=== PATIENT | male | born 1985 | race African-American/Black ===

== ENCOUNTER 2022-12-07 10:32 | Inpatient (IN) | payer OTHER ==
[~2022-12-07] VITALS: Ht 172.7 cm; Wt 67.3 kg
[2022-12-07] MEDS ORDERED: CLOP75TA28 PO (12:07)
[2022-12-07] MEDS ORDERED: FLUO20CA48 PO (12:07)
[2022-12-07] MEDS ORDERED: CARV6.252 PO (12:07)
[2022-12-07] MEDS ORDERED: ACET325T38 PO (12:07)
[2022-12-07] MEDS ORDERED: ATOR40TA70 PO (12:07)
[2022-12-07] MEDS ORDERED: LISI2.5T13 PO (12:07)
[2022-12-07] MEDS ORDERED: ASPI-1238 PO (12:07)
[2022-12-07] MEDS ORDERED: SPIR50TA4 PO (12:07)
[2022-12-07 13:05] VITALS: BP 101/69
--- NOTE | 2022-12-07 13:08 | PM&R Post Admission Assessment ---
PM&R HP Date of Visit: Dec 07, 2022 Time of Visit: 13:00 History of Present Illness CC: Acute Heart Failure and Stroke HPI: Pt is a 37-year-old Male who presents for rehab after hospitalization for acute heart failure exacerbation. During that hospital stay he experienced what was later identified as a right thalamic stroke. Pt was admitted to [facility] through the ED on 11/28 with lower extremity swelling, increasing PATEL and SOB at rest. Pt was also found to have elevated BNP in ED leading to admission for acute HF exacerbation and treatment with diuresis. Pt responded well but on 11/30 a rapid response was called after patient was found with new left eye inversion, and new paralysis of left face, arm, and leg. Stroke team was consulted and found new deficits including: right eye unable to abduct, left eye abducted, Left lower motor neuron facial palsy, some dysarthria, left upper and lower extremity drift and decreased sensation in left upper extremity, Pt was evaluated for, approved for, and given TNK. Pt presents today recovering from both AHF and stroke. He denies SOB though does feel his conditioning has been affected by hospital stay; still has PATEL. He denies deficits with left arm, but feels his left leg is still somewhat weaker than his right. His left eye is pointed down and out at rest. He is currently wearing an eyepatch and alternating when one becomes uncomfortable. With one eye covered he is able to visualize and track examiners finger. However, with both eyes uncovered pt experiences double vision and is in too much discomfort to continue. He reports regular bowel movements and having one last night. He does endorse abnormal urination (over the last 1-2 years notes he is taking longer to pee and that his stream will occasionally start and stop involuntarily) but notes this is not new with recent hospitalization. Denies n/v/f/c. PMH: Sickle Cell trait; otherwise none prior to recent hospital admission PSH: Splenectomy 2005 Allergies: Morphine Home Meds: Occasional OTC allergy pills Medications: Continuing from [facility]: Coreg 6.25 mg PO BID Lipitor 40 mg PO daily Prozac 20 mg PO daily ASA 81 mg PO daily Plavix 75 mg PO daily Lovenox 40 mg SQ daily Lisinopril 2.5 mg PO daily Spironolactone 50 mg PO daily Social Hx: Lives at home with family, employed as cook. Denies tobacco or alcohol use; does endorse smoking marijuana and methamphetamine use, frequency and route unclear (conversation differed with son in room) FMHx: Grandmother passed from stroke; hx of CVD on fathers side ROS: Constitutional: Endorses ~30-40 pound weight loss last few months, denies fever, chills HEENT: endorses visual changes after stroke, some dizziness, no changes in smell or problems swallowing Pulm: denies problems breathing and cough CV: endorses increased PATEL leading up to hospitalization, some present now, no SOB at rest. GI: no problems or changes in bowel habits : denies recent changes, endorses urinating for longer/involuntary starting and stopping developing over last 1-2 years MSK: denies joint and muscle problems. Exam: Gen: thin appearing, NAD HEENT: Head normocephalic and atraumatic, eye patch in place over left eye (alternates); left eye down and out at rest; Pupils equal and equally reactive to light. Pt able to track finger with both eyes independently as noted in HPI, visual field testing deferred. CV: Regular rate and rhythm, no murmurs rubs or gallops appreciated, normal S1 and S2. Pulm: No accessory muscle use, equal work of breathing BL, no wheezes, rales, or ronchi appreciated. Abd: flat, no distension, no TTP Neuro: Pt alert and oriented to person, place, and time. Cranial Nerve 2 pupils equal and equally reactive to light 3,4,6 left eye displaced down and out at rest, otherwise able to track through full H test when eyes examined independently, double vision and discomfort without one eye covered 5 normal facial sensation, equal BL 7 full ROM BL 8 no changes in hearing 9,10 normal elevation of palate and no uvula deviation 11 normal SCM contraction 12 full tongue movement RUE strength 5/5; LUE 4/5; LLE 4/5; RLE: 5/5 Sensation intact and equal BL in each extremity. Labs/vitals/imaging: Unable to view with no login, paper labs outdated Assessment: Primary Problem: Acute Heart Failure and right thalamic stroke Acute ischemic stroke, Congestive Heart Failure w/ reduced ejection fraction; polysubstance use disorder, sickle cell trait, anxiety Plan: Acute thalamic stroke: - s/p TNK - MRI Brain at [facility]: acute right thalamic stroke - CTA H/Neck: no aneurysm, vascular malformations nor large vessel occlusion Plan: - Will need o/p ophthalmology and neurology evaluation. 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 - Not currently candidate for transplant evaluation Sickle Cell Trait - Will need o/p hematology referral Polysubstance Abuse - Open to seeing counselor, continue to explore JOELLEN Covarrubias Past Qpcxloh-Ygwljb-Fipqvm Hx Past Med/Social Hx: Reviewed Nursing Past Med/Soc Hx, Reviewed and Corrections made Patient Social History Marrital Status: single Employed/Student: employed Alcohol Use: Occasionally Uses Smoking Status: Former Smoker Past Medical History chf ef 10% Neurological: Stroke PM&R Allergy/Meds/Data Review Allergies Coded Allergies: morphine (Verified Adverse Reaction, Unknown, 12/07/22) "I get real loopy" Home Medications Scheduled Aspirin (Aspirin EC), 81 MG PO DAILY, (Reported) Atorvastatin Calcium (Atorvastatin Calcium), 40 MG PO HS, (Reported) Carvedilol (Carvedilol), 6.25 MG PO BID WITH MEALS, (Reported) Clopidogrel Bisulfate (Clopidogrel), 75 MG PO DAILY, (Reported) Fluoxetine HCl (Fluoxetine HCl), 20 MG PO HS, (Reported) Lisinopril (Lisinopril), 2.5 MG PO DAILY, (Reported) Spironolactone (Spironolactone), 50 MG PO DAILY, (Reported) Scheduled PRN Acetaminophen (Tylenol), 650 MG PO Q6H PRN for PAIN-MILD (1-4), (Reported) Current Medications Current Medications Reviewed Review of Systems Constitutional: see HPI, dizziness, weight loss EENTM: vision loss Respiratory: no symptoms reported Cardiovascular: no symptoms reported Gastrointestinal: no symptoms reported Genitourinary: no symptoms reported Musculoskeletal: back pain, joint pain Skin: no symptoms reported Psychiatric/Neurological: Depressed, Weakness All Other Systems Reviewed Negative Unless Noted: Yes Physical Exam Physical Exam Vital Signs Capillary Refill : Height, Weight, BMI Height: '" Weight: lbs. oz. kg; BMI Method: General Appearance: WD/WN, Anxious, Chronically ill, Mild Distress, Thin Eyes: Bilateral Eye Normal Inspection, Bilateral Eye PERRL HEENT: PERRL/EOMI, Pharynx Normal, Other (left eye directed down and to left during right eye covered) Neck: Full Range of Motion, Normal Inspection, Non Tender, Supple, Carotid Bruit Respiratory: Chest Non Tender, Lungs Clear, Normal Breath Sounds, No Accessory Muscle Use, No Respiratory Distress Cardiovascular: Regular Rate, Rhythm, No Edema, No Gallop, No JVD, No Murmur, Normal Peripheral Pulses Gastrointestinal: Normal Bowel Sounds, No Organomegaly, No Pulsatile Mass, Non Tender, Soft Back: Normal Inspection, No CVA Tenderness, No Vertebral Tenderness Extremity: Normal Capillary Refill, Normal Inspection, Normal Range of Motion, Non Tender, No Calf Tenderness, No Pedal Edema Neurologic/Psychiatric: Alert, Oriented x3, Abnormal tanbark peeler II-XII, Abnormal Gait, Depressed Affect, Motor Weakness (left sided 4/5) Skin: Normal Color, Warm/Dry Lymphatic: No Adenopathy PM&R Medical Assessment & Plan REHAB/MEDICAL ASSESSMENT AND PLAN: REHAB IMPAIRMENT GROUP: Acute right thalamic infarct ETIOLOGIC DIAGNOSIS: Acute right thalamic infarct The comorbidities that impact the patients function and/or functional outcome by: vision loss, profound weight loss, left sided weakness, h/o meth use, CHF EF 10% REHAB PLAN: The patient is being admitted to our comprehensive inpatient rehabilitation facility and can tolerate the intensity of service consisting of at least: 180 minutes of therapy a day, 5 out of 7 days a week Rehab treatment will consist of: PT OT will focus on regaining strength with use of AD in order to regain function of ADL's in order to DC home to live independently The patient/family has a good understanding of our discharge process and will benefit from an interdisciplinary inpatient rehabilitation program. The patient has potential to make improvement and is in need of at least two of the following multidisciplinary therapies including but not limited to physical, occupational, speech, and prosthetics and orthotics. Additionally the patient will need services from respiratory, nutritional services, wound care, psycholo gy, etc. (Customize this to each patient). Given the patients complex condition and risk of further medical complications, rehabilitation services cannot be safely or effectively provided at a lower level of care such as a intermediate facility. BARRIERS TO DISCHARGE: Severe CHF EF 10% life vest intact ESTIMATED LOS: 10 days DISPOSITION: Home RELEVANT CHANGES SINCE PREADMISSION SCREENING: I have compared the patients medical and functional status at the time of the preadmission screening and there are: no changes PROGNOSIS: Fair REHABILITATION GOALS: 1.PT OT will focus on regaining strength with use of AD in order to regain function of ADL's in order to DC home to live independently All the above goals were reviewed with the patient and he/she is in agreement. By signing this document, I acknowledge that I have personally performed a full physical examination on this patient within 24 hours of admission to this inpatient rehabilitation facility and have determined the patient to be able to tolerate the above course of treatment at an intensive level for a reasonable period of time. I will be completing a detailed individualized Plan of Care for this patient by day #4 of the patients stay based upon the Preadmission Screen, the Post-Admission Evaluation, and the therapy evaluations. Admission Dx/Comorbidities: (1) CVA (cerebral vascular accident) ICD Codes: I63.9 - Cerebral infarction, unspecified Assessment/Plan Assessment and Plan Assess & Plan/Chief Complaint Assessment: Right thalamic stroke with left sided weakness and vision impairment CHF EF 10% h/o Meth use Weight loss Plan: Cardiology consult CHF protocol meds Monitor closely CASSANDRA RIOS DO Dec 07, 2022 13:08
[2022-12-07] MEDS ORDERED: FLEET ENEMA ADULT 1 EA BTL PR PRN (13:15)
[2022-12-07] MEDS ORDERED: MELATONIN 3 MG TABLET PO PRN (13:15)
[2022-12-07] MEDS ORDERED: CALCIUM CARBONATE 500 MG (TUMS) TAB.CHEW PO PRN (13:15)
[2022-12-07] MEDS ORDERED: LOPERAMIDE 2 MG (IMODIUM) TABLET PO PRN (13:15)
[2022-12-07] MEDS ORDERED: diphenhydrAMINE 25 MG TAB (BENADRYL) PO PRN (13:15)
[2022-12-07] MEDS ORDERED: ALPRAZolam 0.25 MG (XANAX) TAB PO PRN (13:15)
[2022-12-07] MEDS ORDERED: guaiFENesin/CODEINE (ROBITUSSIN AC) 10ML UDC PO PRN (13:15)
[2022-12-07] MEDS ORDERED: ONDANSETRON 4 MG (ZOFRAN) ORAL DISSOLVE TAB PO PRN (13:15)
[2022-12-07] MEDS ORDERED: BISACODYL 10 MG SUPP (DULCOLAX) PR PRN (13:15)
[2022-12-07] MEDS ORDERED: DOCUSATE SODIUM 100 MG (COLACE) CAP PO PRN (13:15)
[2022-12-07] MEDS ORDERED: LACTULOSE SYRUP 10GM/15ML (ENULOSE) 30ML UDC PO PRN (13:15)
--- NOTE | 2022-12-07 13:36 | Physical Therapy Evaluation ---
PT Evaluation-General Medical Diagnosis Admission Date 12/07/22 Medical Diagnosis: acute thalamic CVA Onset Date: Nov 28, 2022 Therapy Diagnosis Therapy Diagnosis: Decreased functional mobilty and gait, balance deficit, (L) strength defici Precautions Precautions/Isolations: Fall Prevention Weight Bear Status Weight Bearing/Tolerated Weight Bearing/Tolerated Referral Physician: Oscar Reason for Referral: Evaluation/Treatment Medical History Pertinent Medical History: CVA, Heart Failure Additional Medical History admitted to [facility] 11/28/22 with SOB, LE swelling, increased BNP. Administered tPA/clot buster 11/30 for acute ischemic thalamic stroke - (L) weakness and gaze deviation. During hospitalization, was also diagnosed with acute heart failure with EF of 10%. Also tested positive for Methamphetamine and Cannabis. Other medical history includes sickle cell trait, anxiety, CHF. Stated to OT that he has had some depression and is "working thru it". Social History Home: mobile home Current Living Status: Significant Other (and young son. Also has 2 daughters that he has every other weekend.) Entry Into Home: Stairs With Railing PT Steps Into Home: 4 PT Steps Inside Home: 0 Prior Prior Level of Function SCALE: Activities may be completed with or without assistive devices. 0-Fijfkberyw-fpphtqx completes the activity by him/herself with no assistance from a helper. 5-Set-up or Clean-up Assistance-helper sets up or cleans up; patient completes activity. [place] assists only prior to or following the activity. 4-Supervision or Touching Assistance-helper provides verbal cues and/or touching/steadying and/or contact guard assistance as patient completes activity. Assistance may be provided throughout the activity or intermittently. 3-Partial/Moderate Assistance-helper does LESS THAN HALF the effort. [place] lifts, holds or supports trunk or limbs, but provides less than half the effort. 2-Substantial/Maximal Assistance-helper does MORE THAN HALF the effort. [place] lifts or holds trunk or limbs and provides more than half the effort. 1-Slsiqawnl-bqibni does ALL the effort. Patient does none of the effort to complete the activity. Or, the assistance of 2 or more helpers is required for the patient to complete the activity. If activity was not attempted, code reason: 7-Patient Refused. 9-Not Applicable-not attempted and the patient did not perform the activity before the current illness, exacerbation or injury. 10-Not Attempted due to Environmental Limitations-(lack of equipment, weather restraints, etc.). 88-Not Attempted due to Medical Conditions or Safety Concerns. 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 Does not drive due to DUI. PT Evaluation-Current Subjective No c/o pain. Pleasant and cooperative. Agreeable to work with therapy. Eager to improve. Pain Section J - Health Conditions 1. Rarely or not at all 2. Occasionally 3. Frequently 4. Almost constantly 8. Unable to answer Pain Effect on Sleep: 1 Pain Interference with Therapy: 1 Pain Interference w/Day-to-Day: 1 Pt/Family Goals To return home with s.o. and return to work. Objective Patient Orientation: Person, Place Life Vest attachment. Gauze over (L) eye -- has disconjugate gaze -- states the eye patch was too tight and hurt his head. Switches gauze from (R) to (L) ad gretchne - no definite schedule. When (L) eye correct focus, (R) eye looks upward. When (R) eye corrects focus, (L) eye looks downward -- would benefit from Behavioral Optometry consult such as [facility] in [place], [place]. ROM/Strength ROM Upper Extremities defer to OT ROM Lower Extremities WFL (B) LE's in sitting. No edema. Strength Upper Extremities defer to OT Strength Lower Extremities 5/5 MMT at hips/knee/ankles (B) in sitting with 1x MMT. (L) LE does fatigue with increased gait distance and "feels heavy" to patient. Neuromuscular (Tone, Coordination, Reflexes) Mild impairments in (L) LE coordination noted during gait, some scissoring of (L) over (R) and mild (L) foot slap with increased distance. However, is also wearing slides which can cause balance impairment during gait - recommended he bring in tennis shoes. Sensory Vision: See above Hearing: Functional Transfers Roll Left & Right (QC): 6 Sit to Lying (QC): 6 Lying to Sitting/Side of Bed(Q: 6 Sit to Stand (QC): 4 Chair/Fkg-tl-Iwztt Xfer(QC): 3 (min (A) with FWW) Toilet Transfer (QC): 3 (min (A) with FWW) Car Transfer (QC): 3 (min (A) with FWW) Gait Does the Patient Walk?: Yes Mode of Locomotion: Walk Anticipated Mode of Locomotion: Walk Walk 10 feet (QC): 3 (min (A) with FWW) Walk 50 ft with 2 Turns(QC): 3 (min (A) with FWW) Walk 150 ft (QC): 3 (min (A) with FWW) Walking 10ft/uneven surface-QC: 3 (min (A) with FWW) Distance: 200' Gait Assistive Device: FWW Comments/Gait Description (L) foot slaps mildly with increased distance/fatigue, mild scissoring of (L) toward (R) at times when fatigued Wheelchair Training Does the Pt Use a Wheelchair?: No Wheel 50 ft with 2 turns (QC): 9 Wheel 150 ft (QC): 9 Stairs 1 Step (curb) (QC): 3 (min (A) with FWW, 2" curb) 4 Steps (QC): 3 (MIn (A) with (B) Rails and v.c. due to depth perception issues) 12 Steps (QC): 3 (min (B) with (B) rails and v.c. for depth perception issues) Walking Assistive Device: Walker Balance Sitting Static: Good Sitting Dynamic: Good Standing Static: Fair Standing Dynamic: Fair Picking up an Object (QC): 4 (steadying assist only with and without AD) Special Test Comments Gait speed: 6.1m/17.3 seconds with FWW = .35m/sec Assessment/Needs Rehab Potential: Good Post Rehab Potential-Barriers: disconjugate gaze Equipment Needs FWW PT Manager Statistical Goals Senior Care Goals PT Manager Statistical Goals Time Frame: December 21, 2022 Roll Left to Right (QC): 6 Sit to Lying (QC): 6 Lying-Sitting on Side/Bed(QC): 6 Sit to Stand (QC): 6 Chair/Tfo-ud-Rinix Xfer(QC): 6 (with device) Toilet/Commode Transfer (QC): 6 (with device) Car Transfer (QC): 6 (device) Does the Patient Walk: Yes Walk 10 feet (QC): 6 (with device) Walk 10ft-Uneven Surface(QC): 6 (with device) Walk 50ft with 2 Turns (QC): 6 (with device) Walk 150 ft (QC): 6 (with device) Does the Pt use WC or Scooter?: No Wheel 50 feet with 2 turns (QC: 9 Wheel 150 feet: 9 1 Step (curb) (QC): 6 (with device) 4 Steps (QC): 6 (with railing) 12 Steps (QC): 6 (with railing) Picking up an Object (QC): 6 PT Plan Problem List Problem List: Activity Tolerance, Functional Strength, Safety, Balance, Gait, Transfer Treatment/Plan Treatment Plan: Continue Plan of Care Treatment Plan: Functional Activity Yari, Functional Strength, Group Therapy, Gait, Safety, Therapeutic Exercise, Transfers Treatment Duration: December 21, 2022 Frequency: At least 5 of 7 days/Wk (IRF) Estimated Hrs Per Day: 1.5 hours per day Patient and/or Family Agrees t: Yes Safety Risks/Education Safety Risk Comments: Fall risk, impulsivity with transfers Patient Education: Gait Training, Transfer Techniques Teaching Recipient: Patient Teaching Methods: Demonstration, Discussion Response to Teaching: Reinforcement Needed Discharge Recommendations Plan PT for 1.5 hours per day including co-treatment prn to address multiple functional deficits while maintaining patient safety and requiring two skilled therapists to address multiple issues simulatneously to regain PLOF. Time Time In: 1305 (1335 co-treat) Time Out: 1315 (1355 = co-treat) DATE: Dec 07, 2022 Total Billed Treatment Time: 30 Total Billed Treatment 10' EVM individual, 20' cotreatment - gait -- to address multiple issues safetly at [facility] with 2 skilled therapist's addressing issues Antionette Fihs PT Dec 07, 2022 13:35
--- NOTE | 2022-12-07 13:39 | Occupational Therapy Eval ---
OT Evaluation-General/PLF Medical Diagnosis Admission Date Medical Diagnosis: CVA Onset Date: Nov 30, 2022 Therapy Diagnosis Therapy Diagnosis: Decreased ADL status, Referral Physician: Oscar Referral Reason: Evaluation/Treatment Medical History Additional Medical History meth abuse. Current History 11/28/22 admit to OSH with SOB, found to have acute CHF with EF 10%, and sickle cell trait. While on Medical floor, rapid response initiated due to L arm/face/leg paralysis, dx with acute thalamic CVA s/p TNK. UDS positive for meth, protamines, cannabinoids. Pt transferred to ARU 12/07/22. Social History Home: Single Level (mobile home) Current Living Status: Significant Other Entry Into Home: Stairs With Railing Steps Into Home: 4 ADL-Prior Level of Function SCALE: Activities may be completed with or without assistive devices. 0-Rrugzujsby-gkkngfo completes the activity by him/herself with no assistance from a helper. 5-Set-up or Clean-up Assistance-helper sets up or cleans up; patient completes activity. [place] assists only prior to or following the activity. 4-Supervision or Touching Assistance-helper provides verbal cues and/or touching/steadying and/or contact guard assistance as patient completes activity. Assistance may be provided throughout the activity or intermittently. 3-Partial/Moderate Assistance-helper does LESS THAN HALF the effort. [place] lifts, holds or supports trunk or limbs, but provides less than half the effort. 2-Substantial/Maximal Assistance-helper does MORE THAN HALF the effort. [place] lifts or holds trunk or limbs and provides more than half the effort. 7-Khjkzakjc-caemrf does ALL the effort. Patient does none of the effort to complete the activity. Or, the assistance of 2 or more helpers is required for the patient to complete the activity. If activity was not attempted, code reason: 7-Patient Refused. 9-Not Applicable-not attempted and the patient did not perform the activity before the current illness, exacerbation or injury. 10-Not Attempted due to Environmental Limitations-(lack of equipment, weather restraints, etc.). 88-Not Attempted due to Medical Conditions or Safety Concerns. ADL PLOF Comments Pt was independent with ADLS and functional mobility at [facility], no AD. 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 He has a small walk in shower, no SC, but indicates there is room for a small SC if needed. Self Care: Independent Functional Cognition: Independent DME/Equipment: Shower Occupation: FT cook at [employer] Drive Self: No OT Current Status Subjective Pt agreeable to OT evaluation and tx. Pt reports he has been depressed lately, no suicidal thoughts, and he feels like he is in a better head space now. Pt emotional later in tx, tearful. OT provided therapeutic listening and communication. Mental Status/Objective Patient Orientation: Person, Place, Time, Situation Attachments: Other-See Comments (lifevest) Current Glasses/Contacts: No Hearing Aids: No Dentures/Partials: No Hand Dominance: Right Upper Extremity ROM WFL, BUE shoulder flexion to approx 180 degrees Upper Extremity Coordination WFL Upper Extremity Sensation WFL per pt report Upper Extremity Strength Grossly 5/5 BUEs. Pt reports he feels like he has to work harder in order to use LUE, and it feels weaker as he fatigues. Vision: Gauze over L eye, has disconjugate gaze. pt states eye patch was too tight at other hospital. OT provided pt with eye patch, pt indicates it felt good, instructions provided to inform staff if it began to bother him. pt able to switch gauze/eye patch from R to L as he needs to, recommended to at least complete every 2 hours. When L eye corrects focus, R eye looks upward. When R eye corrects focus, L eye looks downward. ADL-Treatment Eating (QC): 6 Oral Hygiene (QC): 4 (CGA in standing.) Shower/Bathe Self (QC): 3 (Min A for dynamic standing balance and per pt report. ) Upper Body Dressing (QC): 4 (SBA with jacket) Lower Body Dressing (QC): 3 (CGA-Min A with dynamic standing balance. ) On/Off Footwear (QC): 4 (SBA seated EOB unsupported.) Toileting Hygiene (QC): 4 (CGA standing at toilet to urinate.) Other Treatments OT evaluation complete. OT/PT cotreat due to skill of 2 clinicians required which a pyrotechnic mixer could not perform in order to coordinate UE/LEs, decrease fall risk, and due to pt's limitations in strength, activity tolerance, mobility/transfers, visual deficits. OT focused on UE placement, cues for sequencing and safety and ADLs, PT focused on LE placement, gross overall movement, transfers and mobility. Pt completed functional mobility/transfers including mobility using FWW, stairs, car transfer, bed mobility. Pt used FWW to stand at toilet to urinate, OT educated pt on safety with walker during task. Pt stood at sink for hand hygiene and grooming, CGA. Pt demonstrated ability to complete footwear and dressing tasks, pt deferred shower at this time. Pt states he would feel more comfortable with SO assisting him with this task, OT educated pt to complete task himself as much as possible in order to increase independence, he verbalized understanding. Pt used FWW to transfer into therapy gym. Pt completed dynamic standing and sitting reaching tasks. Pt sat in chair, reaching for cones in various planes, no LOB noted. Pt then stood at FWW, picking cones up from ground with and without FWW. Pt educated on energy conservation with activity, encouraged to listen to his body and take rest br eaks as needed due to EF of 10%, he verbalized understanding. Pt completed mobility around therapy gym and ARU common area, locating ~15 cones, education provided on visual scanning for items, RB provided throughout task. Pt returned to his room, transferring to recliner. Post tx, pt in recliner, call light in reach and all needs met. IND rolling, supine to/from sit, CGA sit to stand, min A bed to/from chair, min A toilet transfer, min A car transfer. Min A with mobility using FWW 200' (mild scissoring of LLE towards R at times as fatigued), min A with 12 steps (VCs for depth perception issues) Education OT Patient Education: Correct positioning, Energy conservation, Modified ADL techniques, Progress toward Goal/Update tx plan, Purpose of tx/functional activities, Rehab process Teaching Recipient: Patient Teaching Methods: Discussion Response to Teaching: Verbalize Understanding BIMS CAM BIMS Expression of Ideas and Wants: Without Difficulty Understanding Verbal Content: Understands Brief Interview/Mental Status: Yes IRF ALEXANDRE BIMS: IRF ALEXANDRE BIMS Response (Comments) Value Repitition of Three Words Three 3 Recalls Socks Yes, No Cue Required 2 Recalls Blue Yes, No Cue Required 2 Recalls Bed Yes, No Cue Required 2 Year Correct 3 Month Accurate Within 5 Days 2 Day Correct 1 Total [address] Ass[address] Mental [address] No CAM Mental Status Change/Baseline: 0 Inattention: 0 Disorganized thinkin Altered level of consciousness: 0 OT Short Term Goals Short Term Goals Time Frame: December 18, 2022 Shower/bathe self: 5 Upper body dressin Lower body dressin Putting on/taking off footwear: 5 OT Learning And Development Consultant Goals Shelter Goals Time Frame: January 01, 2023 Eating (QC): 6 Oral Hygiene (QC): 6 Toileting Hygiene (QC): 6 Shower/Bathe Self (QC): 6 Upper Body Dressing (QC): 6 Lower Body Dressing (QC): 6 On/Off Footwear (QC): 6 Additional Goals: 1-Demonstrate ADL Tasks, 2-Verbalize Understanding, 3- ImproveStrength/Yari 1=Demonstrate adherence to instructed precautions during ADL tasks. 2=Patient will verbalize/demonstrate understanding of assistive devices/modifications for ADL. 3=Patient will improve strength/tolerance for activity to enable patient to perform ADL's. OT Education/Plan Problem List/Assessment Assessment: Decreased Activ Tolerance, Decreased UE Strength, Impaired Funct Balance, Impaired I ADL's, Impaired Self-Care Skills Discharge Recommendations Plan/Recommendations: Continue POC Therapy Discharge Recommendati: Home & Family Equpiment Recommendations-D/C: Bath Chair Comment Pt would benefit from SC or BSC in order to provide pt with seat in shower for energy conservation. Pt's shower is small, so seat would need to be fairly small in size in order to fit. Treatment Plan/Plan of Care Treatment,Training & Education: Yes Patient would benefit from OT for education, treatment and training to promote independence in ADL's, mobility, safety and/or upper extremity function for ADL's. Plan of Care: ADL Retraining, Functional Mobility, Group Exercise/Act as Ind, UE Funct Exercise/Act, UE Neuromus Re-Ed/Coord, Visual/Perceptual Retrain, OTHER (Energy Conservation) Treatment Duration: January 01, 2023 Frequency: At least 5 of 7 days/Wk (IRF) Estimated Hrs Per Day: 1.5 hours per day Agreement: Yes Rehab Potential: Good Time Start Time: 12:55 ([id number] OT eval) Stop Time: 14:55 ([id number] [place]) DATE: Dec 07, 2022 Total Time Billed (hr/min): 90 Billed Treatment Time OT evaluation [id number] (10'), [place] [id number] (80') 1, EVM (10') 1, FA 4 (65'), ADL (15') THOMAS WHITAKER OT Dec 07, 2022 13:39
--- NOTE | 2022-12-07 14:59 | Physical Therapy Daily Note ---
PT Daily Note-Current Subjective pt with CO upon arrival. 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 pt reports no pain this day. Pain Section J - Health Conditions 1. Rarely or not at all 2. Occasionally 3. Frequently 4. Almost constantly 8. Unable to answer Pain Effect on Sleep: 1 Pain Interference with Therapy: 1 Pain Interference w/Day-to-Day: 1 Transfers SCALE: Activities may be completed with or without assistive devices. 2-Thrcntahnd-oxncnwd completes the activity by him/herself with no assistance from a helper. 5-Set-up or Clean-up Assistance-helper sets up or cleans up; patient completes activity. [place] assists only prior to or following the activity. 4-Supervision or Touching Assistance-helper provides verbal cues and/or touching/steadying and/or contact guard assistance as patient completes activ ity. Assistance may be provided throughout the activity or intermittently. 3-Partial/Moderate Assistance-helper does LESS THAN HALF the effort. [place] lifts, holds or supports trunk or limbs, but provides less than half the effort. 2-Substantial/Maximal Assistance-helper does MORE THAN HALF the effort. [place] lifts or holds trunk or limbs and provides more than half the effort. 6-Zvdoshnvm-xvuoxk does ALL the effort. Patient does none of the effort to complete the activity. Or, the assistance of 2 or more helpers is required for the patient to complete the activity. If activity was not attempted, code reason: 7-Patient Refused. 9-Not Applicable-not attempted and the patient did not perform the activity before the current illness, exacerbation or injury. 10-Not Attempted due to Environmental Limitations-(lack of equipment, weather restraints, etc.). 88-Not Attempted due to Medical Conditions or Safety Concerns. Weight Bearing Weight Bearing/Tolerated Weight Bearing/Tolerated Exercises Standing: Dynamic Reaching Ex Treatments pt was able to preform dynamic sitting and standing balance with VC for safety of 30% this day to prevent falls.pt does require multiple rest breaks in order to continue therapy. after rst pt is able to continue activity Assessment Current Status: Good Progress PT Housing Coordinator Goals Correction Goals PT Correction Goals Time Frame: December 21, 2022 Roll Left & Right (QC): 6 Sit to Lying (QC): 6 Lying-Sitting on Side/Bed(QC): 6 Sit to Stand (QC): 6 Chair/Jkp-mo-Xfign Xfer(QC): 6 Toilet Transfer (QC): 6 Car Transfer (QC): 6 Does the Patient Walk: Yes Walk 10 feet (QC): 6 Walk 50ft with 2 Turns (QC): 6 Walk 150 ft (QC): 6 Walking 10ft on Uneven Surface: 6 1 Step (curb) (QC): 6 4 Steps (QC): 6 12 Steps (QC): 6 Picking up an Object (QC): 6 Wheel 50 feet with 2 turns (QC: 9 Wheel 150 feet: 9 PT Plan Problem List Problem List: Activity Tolerance, Safety Treatment/Plan Treatment Plan: Continue Plan of Care Treatment Duration: December 21, 2022 Frequency: 5 times per week Time Time In: 155 Time Out: 255 DATE: Dec 07, 2022 Total Billed Treatment Time: 60 Total Billed Treatment 1, GT x 2 , EX x 2. OT/PT cotreat due to skill of 2 clinicians required which a exhibit technician could not perform in order to coordinate UE/LEs, decrease fall risk, and due to pt's limitations in strength, activity tolerance, mobility/transfers, visual deficits. OT focused on UE placement, cues for sequencing and safety and ADLs, PT focused on LE placement, gross overall movement, transfers and mobility. Camille Thayer COMPUTER SECURITY SPECIALIST Dec 07, 2022 14:59
--- NOTE | 2022-12-07 16:08 | Consultation-Cardiology ---
HPI-Cardiology Cardiology Consultation: Date of Consultation 12/07/22 Time Seen by a Provider: 15:45 Date of Admission 12-07-22 Attending Physician Admitting Physician Admitting Physician: Karli Moore DO Attending Physician: Karli Moore DO Consulting Physician Sivan Sotelo MD HPI: Chief Complaint: Dilated CM H/O CVA Mr. Adan is a 37 yr old male admitted to [facility] from [facility]. He was admitted on 11-28-22 to [facility] with dx of new onset CHF. He reports he had increasing SOB and LE swelling that had been progressive for the last few months. He denies any c/o CP or palpitations. He reports during his hospitalization he had a CVA with left sided facial droop, left sided weakness and dbl vision in his left eye. He reports the weakness in his left leg has improved and left hand. He continues to report dbl vision of the left eye. He reports and review of records at the time of the stroke he was tx with tPA. He currently has a life vest in place. He reports improvement of his SOB. 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 He reports he has a h/o methamphetamine and marijuana abuse. Review of Systems-Cardiology Review of Systems Constitutional: No chills, No fever, No weight gain Eyes: As described under HPI, vision change Ears/Nose/Throat: No epistaxis, No recent hearing loss Respiratory: As described under HPI Cardiovascular: As described under HPI Gastrointestinal: No diarrhea, No nausea, No vomiting Genitourinary: No hematuria Musculoskeletal: As describe under HPI Skin: No rash on exposed areas, No ulcerations on exposed areas Psychiatric/Neurological: As described under HPI; No seizure, No syncope Hematologic: As described under HPI DLQ-Yrdqbi-Eonoty Hx Patient Social History Have you traveled recently?: No Substance type: Methamphetamine Pt feels they are or have been: No Past Medical History PMH As described under Assessment. Family Medical History Family Medical History: No reported family h/o CAD Allergies and Home Medications Allergies Coded Allergies: morphine (Verified Adverse Reaction, Unknown, 12/07/22) "I get real loopy" Patient Home Medication List Acetaminophen (Tylenol) 325 Mg Tablet, 650 MG PO Q6H PRN for PAIN-MILD (1-4), (Reported) Entered as Reported by: SARAI DARBY on 12/07/221206 Last Action: Held Aspirin (Aspirin EC) 81 Mg Tablet.dr, 81 MG PO DAILY, (Reported) Entered as Reported by: SARAI DARBY on 12/07/221206 Last Action: Continued Atorvastatin Calcium (Atorvastatin Calcium) 40 Mg Tablet, 40 MG PO HS, (Reported) Entered as Reported by: SARAI DARBY on 12/07/221206 Last Action: Continued Carvedilol (Carvedilol) 6.25 Mg Tablet, 6.25 MG PO BID WITH MEALS, (Reported) Entered as Reported by: SARAI DARBY on 12/07/221206 Last Action: Continued Clopidogrel Bisulfate (Clopidogrel) 75 Mg Tablet, 75 MG PO DAILY, (Reported) Entered as Reported by: SARAI DARBY on 12/07/221206 Last Action: Continued Fluoxetine HCl (Fluoxetine HCl) 20 Mg Capsule, 20 MG PO HS, (Reported) Entered as Reported by: SARAI DARBY on 12/07/221206 Last Action: Continued Lisinopril (Lisinopril) 2.5 Mg Tablet, 2.5 MG PO DAILY, (Reported) Entered as Reported by: SARAI DARBY on 12/07/221206 Last Action: Converted Spironolactone (Spironolactone) 50 Mg Tablet, 50 MG PO DAILY, (Reported) Entered as Reported by: SARAI DARBY on 12/07/221206 Last Action: Converted Physical Exam-Cardiology Physical Exam Vital Signs/I&O 12/08/22 12/08/22 07:19 09:42 Temp 36.8 Pulse 101 Resp 14 B/P (MAP) 117/76 (90) Pulse Ox 98 98 O2 Delivery Room Air Room Air 12/08/22 00:00 Intake Total 450 ml Output Total 300 ml Balance 150 ml Capillary Refill : Constitutional: AAO x 3, other (thin) HEENT: hearing is well preserved, oral hygience is good Neck: No carotid bruit; carotid pulses are 2 + bilaterally Respiratory: No accessory muscle use, No respiratory distress; chest expansion is symmetric, chest is bilaterally symmetric, lungs clear to auscultation Cardiovascular: regular rate-rhythm; No JVD; S1 and S2 Gastrointestinal: soft; No guarding; audible bowel sounds Extremities: no lower extremity edema bilateral Neurologic/Psychiatric: grossly intact (moves all extremities; eye patch in place to left eye; slight left sided facial droop; 4/5 left upper extremities) Skin: No rash on exposed areas, No ulcerations on exposed areas Data Review Labs Laboratory Tests 12/08/22 04:57: White Blood Count 8.5, Red Blood Count 5.18, Hemoglobin 15.4, Hematocrit 44, Mean Corpuscular Volume 84, Mean Corpuscular Hemoglobin 30, Mean Corpuscular Hemoglobin Concent 35, Red Cell Distribution Width 13.1, Platelet Count 393, Mean Platelet Volume 10.0, Immature Granulocyte % (Auto) 0, Neutrophils (%) (Auto) 44, Lymphocytes (%) (Auto) 43, Monocytes (%) (Auto) 8, Eosinophils (%) (Auto) 4, Basophils (%) (Auto) 1, Neutrophils # (Auto) 3.7, Lymphocytes # (Auto) 3.7, Monocytes # (Auto) 0.6, Eosinophils # (Auto) 0.4H, Basophils # (Auto) 0.1, Immature Granulocyte # (Auto) 0.0, Sodium Level 136, Potassium Level 4.8, Chloride Level 103, Carbon Dioxide Level 22, Anion Gap 11, Blood Urea Nitrogen 21H, Creatinine 1.00, Estimat Glomerular Filtration Rate 101, BUN/Creatinine Ratio 21, Glucose Level 95, Calcium Level 9.3, Corrected Calcium 9.8, Magnesium Level 1.9, Total Bilirubin 0.5, Aspartate Amino Transf (AST/SGOT) 48H, Alanine Aminotransferase (ALT/SGPT) 81H, Alkaline Phosphatase 103, Total Protein 5.9L, Albumin 3.4 A/P-Cardiology Assessment/Admission Diagnosis Dilated cardiomyopathy - dx - Echocardiogram of 11-28-[address] [facility] [address] Barragan showed severe pulmonary chamber enlargement, severe LV systolic dysfunction, severely elevated pulmonary pressures, LVEF 10% - Life Vest in place Systolic CHF - clinically compensated Acute ischemic CVA on 11-30-22 at [facility] in [place], [place] - residual left sided upper extremity weakness, left sided facial droop and left sided dbl vision - treated with tPA - MRI of the brain at [facility] showed acute thalamic infarct H/O marijuana and methamphetamine abuse - continued cessation advised H/O sickle cell disorder - reports h/o spleenectomy in 2005 - does not follow with hematology services Discussion and Recomendations Dilated cardiomyopathy with chronic systolic CHF - continue Life vest - continue BB, SALVATORE and diuretics Acute thalmic infarct - continue Plavix and ASA Management of stroke is per Dr. Moore Monitor lab Further recs will be be based on his hospital course We would like to thank Dr. Moore for this consult DIEGO PAL Dec 07, 2022 16:08
[2022-12-07 17:53] VITALS: BP 119/62
[2022-12-07] MEDS: ACETAMINOPHEN 325 MG TABLET PO PRN (17:55)
[2022-12-07 20:05] VITALS: BP 109/64
[2022-12-07] MEDS: SENNA W/DOCUSATE (SENOKOT S) TABLET PO SCH (20:15)
[2022-12-07] MEDS: polyethylene glycoL POWDER 17 GM (MIRALAX) PACK PO SCH (20:15)
[2022-12-07] MEDS: DOCUSATE SODIUM 100 MG (COLACE) CAP PO SCH (20:15)
[2022-12-07] MEDS: FLUoxetine HCL 20 MG (PROzac) CAP PO SCH (20:17)
--- NOTE | 2022-12-07 20:38 | Consultation-Cardiology ---
HPI-Cardiology Cardiology Consultation: Date of Consultation 12/07/22 Time Seen by a Provider: 20:10 Date of Admission Attending Physician Admitting Physician Admitting Physician: Karli Moore DO Attending Physician: Karli Moore DO Consulting Physician JOANIE ARENAS MD, MA, FACP, FACC, FSCAI, CCDS Physician requesting Card consult: Dr Moore HPI: Chief Complaint: Dilated CM H/O CVA Mr. Adan is a 37 yr old male admitted to [facility] from [facility]. He was admitted on 11-28-22 to [facility] with dx of new onset CHF. He reports he had increasing SOB and LE swelling that had been progressive for the last few months. He denies any c/o CP or palpitations. He reports during his hospitalization he had a CVA with left sided facial droop, left sided weakness and dbl vision in his left eye. He reports the weakness in his left leg has improved and left hand. He continues to report dbl vision of the left eye. He reports and review of records at the time of the stroke he was tx with tPA. He currently has a life vest in place. He reports improvement of his SOB. 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 He reports he has a h/o methamphetamine and marijuana abuse. Review of Systems-Cardiology Review of Systems Constitutional: No chills, No fever, No weight gain Eyes: As described under HPI, vision change Ears/Nose/Throat: No epistaxis, No recent hearing loss Respiratory: As described under HPI Cardiovascular: As described under HPI Gastrointestinal: No diarrhea, No nausea, No vomiting Genitourinary: No hematuria Musculoskeletal: As describe under HPI Skin: No rash on exposed areas, No ulcerations on exposed areas Psychiatric/Neurological: As described under HPI; No seizure, No syncope Hematologic: As described under HPI CVR-Bncvza-Ngrrej Hx Patient Social History Have you traveled recently?: No Substance type: Methamphetamine Pt feels they are or have been: No Past Medical History PMH As described under Assessment. Family Medical History Family Medical History: No reported family h/o CAD Allergies and Home Medications Allergies Coded Allergies: morphine (Verified Adverse Reaction, Unknown, 12/07/22) "I get real loopy" Patient Home Medication List Home Medication List Reviewed: Yes Acetaminophen (Tylenol) 325 Mg Tablet, 650 MG PO Q6H PRN for PAIN-MILD (1-4), (Reported) Entered as Reported by: SARAI DARBY on 12/07/221206 Last Action: Held Aspirin (Aspirin EC) 81 Mg Tablet.dr, 81 MG PO DAILY, (Reported) Entered as Reported by: SARAI DARBY on 12/07/221206 Last Action: Continued Atorvastatin Calcium (Atorvastatin Calcium) 40 Mg Tablet, 40 MG PO HS, (Reported) Entered as Reported by: SARAI DARBY on 12/07/221206 Last Action: Continued Carvedilol (Carvedilol) 6.25 Mg Tablet, 6.25 MG PO BID WITH MEALS, (Reported) Entered as Reported by: SARAI DARBY on 12/07/221206 Last Action: Continued Clopidogrel Bisulfate (Clopidogrel) 75 Mg Tablet, 75 MG PO DAILY, (Reported) Entered as Reported by: SARAI DARBY on 12/07/221206 Last Action: Continued Fluoxetine HCl (Fluoxetine HCl) 20 Mg Capsule, 20 MG PO HS, (Reported) Entered as Reported by: SARAI DARBY on 12/07/221206 Last Action: Continued Lisinopril (Lisinopril) 2.5 Mg Tablet, 2.5 MG PO DAILY, (Reported) Entered as Reported by: SARAI DARBY on 12/07/221206 Last Action: Converted Spironolactone (Spironolactone) 50 Mg Tablet, 50 MG PO DAILY, (Reported) Entered as Reported by: SARAI DARBY on 12/07/221206 Last Action: Converted Physical Exam-Cardiology Physical Exam Vital Signs/I&O 12/07/22 12/07/22 12/07/22 12/07/22 13:05 13:56 14:45 17:53 Temp 36.2 Pulse 76 69 99 Resp 16 18 20 B/P (MAP) 101/69 (80) 119/62 (81) Pulse Ox 92 97 98 O2 Delivery Room Air Room Air Room Air Room Air Capillary Refill : Constitutional: AAO x 3, other (thin) HEENT: hearing is well preserved, oral hygience is good Neck: No carotid bruit; carotid pulses are 2 + bilaterally Respiratory: No accessory muscle use, No respiratory distress; chest expansion is symmetric, chest is bilaterally symmetric, lungs clear to auscultation Cardiovascular: regular rate-rhythm; No JVD; S1 and S2 Gastrointestinal: soft; No guarding; audible bowel sounds Extremities: no lower extremity edema bilateral Neurologic/Psychiatric: grossly intact (moves all extremities; eye patch in place to left eye; slight left sided facial droop; 4/5 left upper extremities) Skin: No rash on exposed areas, No ulcerations on exposed areas A/P-Cardiology Assessment/Admission Diagnosis Dilated cardiomyopathy - Echocardiogram of 11-28-22 at [facility] by Dr. Barragan showed severe pulmonary chamber enlargement, severe LV systolic dysfunction, severely elevated pulmonary pressures, LVEF 10% - Life Vest in place Ac systolic CHF - clinically compensated Acute ischemic CVA on 11-30-22 at [facility] in [place], [place] - residual left sided upper extremity weakness, left sided facial droop and left sided dbl vision - treated with tPA - MRI of the brain at [facility] showed acute thalamic infarct H/O marijuana and methamphetamine abuse - continued cessation advised H/O sickle cell disorder - reports h/o spleenectomy in 2005 - does not follow with hematology services Discussion and Recomendations Dilated cardiomyopathy with chronic systolic CHF - continue Life vest - continue BB, SALVATORE and diuretics Acute ischemic thalmic infarct - continue Plavix and ASA Management of stroke is per Dr. Moore Monitor lab Further recs will be be based on his hospital course We would like to thank Dr. Moore for this consult JOANIE ARENAS MD FACP FAC CCDS Dec 07, 2022 20:38
[2022-12-08] MEDS: ACETAMINOPHEN 325 MG TABLET PO PRN (05:05)
[2022-12-08 05:08] LABS: BASOPHILS # (AUTO) 0.1 10^3/uL (0.0-0.1); BASOPHILS % (AUTO) 1 % (0-10); EOSINOPHILS # (AUTO) 0.4 10^3/uL (0.0-0.3); EOSINOPHILS % (AUTO) 4 % (0-10); HEMATOCRIT 44 % (40-54); HEMOGLOBIN 15.4 g/dL (13.3-17.7); LYMPHOCYTES # (AUTO) 3.7 10^3/uL (1.0-4.0); LYMPHOCYTES % (AUTO) 43 % (12-44); MEAN CORPUSCULAR HEMOGLOBIN 30 pg (25-34); MEAN CORPUSCULAR HGB CONC 35 g/dL (32-36); MEAN CORPUSCULAR VOLUME 84 fL (80-99); MONOCYTES # (AUTO) 0.6 10^3/uL (0.0-1.0); MONOCYTES % (AUTO) 8 % (0-12); NEUTROPHILS # (AUTO) 3.7 10^3/uL (1.8-7.8); NEUTROPHILS % (AUTO) 44 % (42-75); PLATELET COUNT 393 10^3/uL (130-400); WHITE BLOOD COUNT 8.5 10^3/uL (4.3-11.0)
--- NOTE | 2022-12-08 05:13 | PM&R Progress Note ---
Subjective HPI/CC On Admission Date Seen by Provider: Dec 08, 2022 Time Seen by Provider: 08:30 Subjective/Events-last exam 12/08/2022: No major issues Vision dysfunction improved with eye patch No pain Eating better Appreciate Dr Sotelo Review of Systems General: Fatigue, Malaise Objective Exam Vital Signs Vital Signs Date Time Temp Pulse Resp B/P (MAP) Pulse Ox O2 Delivery O2 Flow Rate FiO2 12/08/22 21:15 98 Room Air 12/08/22 20:00 36.5 100 18 103/61 (75) Capillary Refill : General Appearance: No Apparent Distress, WD/WN, Anxious, Chronically ill, Thin HEENT: PERRL/EOMI, Pharynx Normal, Other (left eye directed down and to left during right eye covered) Neck: Full Range of Motion, Normal Inspection, Non Tender, Supple, Carotid Bruit Respiratory: Chest Non Tender, Lungs Clear, Normal Breath Sounds, No Accessory Muscle Use, No Respiratory Distress Cardiovascular: Regular Rate, Rhythm, No Edema, No Gallop, No JVD, No Murmur, Normal Peripheral Pulses Gastrointestinal: Normal Bowel Sounds, No Organomegaly, No Pulsatile Mass, Non Tender, Soft Back: Normal Inspection, No CVA Tenderness, No Vertebral Tenderness Extremity: Normal Capillary Refill, Normal Inspection, Normal Range of Motion, Non Tender, No Calf Tenderness, No Pedal Edema Neurologic/Psychiatric: Alert, Oriented x3, Abnormal safety trainer II-XII, Abnormal Gait, Depressed Affect, Motor Weakness (left sided 4/5) Skin: Normal Color, Warm/Dry Lymphatic: No Adenopathy Results/Procedures Lab Patient resulted labs reviewed. FIM Transfers Therapy Code Descriptions/Definitions Functional [place] Measure: 0=Not Assessed/NA 4=Minimal Assistance 1=Total Assistance 5=Supervision or Setup 2=Maximal Assistance 6=Modified [place]unk 3=Moderate Assistance 7=Complete IndependenceSCALE: Activities may be completed with or without assistive devices. 6-Ltnffbmxgb-iatestp completes the activity by him/herself with no assistance from a helper. 5-Set-up or Clean-up Assistance-helper sets up or cleans up; patient completes activity. [place] assists only prior to or following the activity. 4-Supervision or Touching Assistance-helper provides verbal cues and/or touching/steadying and/or contact guard assistance as patient completes activity. Assistance may be provided throughout the activity or intermittently. 3-Partial/Moderate Assistance-helper does LESS THAN HALF the effort. [place] lifts, holds or supports trunk or limbs, but provides less than half the effort. 2-Substantial/Maximal Assistance-helper does MORE THAN HALF the effort. [place] lifts or holds trunk or limbs and provides more than half the effort. 3-Phcezsxsd-ycakdg does ALL the effort. Patient does none of the effort to complete the activity. Or, the assistance of 2 or more helpers is required for the patient to complete the activity. If activity was not attempted, code reason: 7-Patient Refused. 9-Not Applicable-not attempted and the patient did not perform the activity before the current illness, exacerbation or injury. 10-Not Attempted due to Environmental Limitations-(lack of equipment, weather restraints, etc.). 88-Not Attempted due to Medical Conditions or Safety Concerns. Roll Left to Right (QC): 6 Sit to Lying (QC): 6 Sit to Stand (QC): 4 Chair/Jzr-ec-Dqwun Xfer(QC): 3 (min (A) with FWW) Car Transfer (QC): 3 (min (A) with FWW) Gait Training Does the Patient Walk?: Yes Walk 10 feet (QC): 3 (min (A) with FWW) Walk 50 ft with 2 Turns(QC): 3 (min (A) with FWW) Walk 150 ft (QC): 3 (min (A) with FWW) Walking 10ft/uneven surface-QC: 3 (min (A) with FWW) Gait Assistive Device: FWW Wheelchair Training Does the Pt Use a Wheelchair?: No Wheel 50 ft with 2 turns (QC): 9 Wheel 150 ft (QC): 9 Stair Training 1 Step (curb) (QC): 3 (min (A) with FWW, 2" curb) 4 Steps (QC): 3 (MIn (A) with (B) Rails and v.c. due to depth perception issues) 12 Steps (QC): 3 (min (B) with (B) rails and v.c. for depth perception issues) Balance Picking up an Object (QC): 4 (steadying assist only with and without AD) ADL-Treatment Eating (QC): 6 Oral Hygiene (QC): 4 (CGA in standing.) Shower/Bathe Self (QC): 3 (Min A for dynamic standing balance and per pt report. ) Upper Body Dressing (QC): 4 (SBA with jacket) Lower Body Dressing (QC): 3 (CGA-Min A with dynamic standing balance. ) On/Off Footwear (QC): 4 (SBA seated EOB unsupported.) Toileting Hygiene (QC): 4 (CGA standing at toilet to urinate.) Assessment/Plan Assessment and Plan Assess & Plan/Chief Complaint Assessment: Right thalamic stroke with left sided weakness and vision impairment CHF EF 10% h/o Meth use Weight loss Plan: Cardiology consult CHF protocol meds Monitor closely 12/08/2022: Appreciate Dr Sotelo (1) CVA (cerebral vascular accident) CASSANDRA RIOS DO Dec 08, 2022 05:13
--- NOTE | 2022-12-08 05:14 | Individualized Plan of Care ---
Individualized Plan of Care Rehab Nursing IPOC Order Admission Date Dec 07, 2022 at 12:54 Current Orders Orders Admission Arrival Bed Request (12/07/22 12:54) Admission Order(Inpt,Obs,Sdc) (12/07/22 13:04) Vital Signs: Per Unit Policy ( 08,16,00 (12/07/22 13:04) Nate Andrews 09,21 (12/07/22 13:04) Sequential Compression Device (12/07/22 13:04) Production Welding Supervisor-Inpt Rehab Con (12/07/22 13:04) Rehab Nursing Orders-Ipoc (12/07/22 13:04) Physical Therapy Rehab Orders (12/07/22 13:04) Occupational Therapy Rehab Ord (12/07/22 13:04) Speech Therapy Rehab Orders (12/07/22 13:04) Cbc With Automated Diff (12/08/22 06:00) Comprehensive Metabolic Panel (12/08/22 06:00) Precautions (Aru) (12/07/22 13:04) Weekly Weight WEEK (12/07/22 13:04) Rehab-Intensity Of Therapy (12/07/22 13:04) Initiate Admission Nursing Pro .admission (12/07/22 13:04) Alprazolam Tablet (Xanax Tablet) (12/07/22 13:15) Calcium Carbonate Chew Tablet (Antacid C (12/07/22 13:15) Diphenhydramine Tablet (Benadryl Tablet) (12/07/22 13:15) Docusate Sodium Capsule (Colace Capsule) (12/07/22 21:00) Docusate Sodium Capsule (Colace Capsule) (12/07/22 13:15) Bisacodyl Suppository (Dulcolax Supposit (12/07/22 13:15) Lactulose Oral Solution (Enulose Oral So (12/07/22 13:15) Na Phos/Na Biphos Enema (Fleet Enema Armando (12/07/22 13:15) Guaifenesin/Codeine Syrup (Robitussin Ac (12/07/22 13:15) Loperamide Tablet (Imodium Tablet) (12/07/22 13:15) Melatonin Tablet (Melatonin Tablet) (12/07/22 13:15) Polyethylene Glycol Powder Pkt (Miralax (12/07/22 21:00) Ondansetron Oral Dissolve Tab (Zofran (12/07/22 13:15) Senna S Tablet (Senokot S Tablet) (12/07/22 21:00) Acetaminophen Tablet/Caplet (Tylenol T (12/07/22 13:15) Initiate Admission Nursing Pro .admission (12/07/22 13:04) Aspirin Enteric Coated Tablet (Ecotrin T (12/08/22 09:00) Atorvastatin Tablet (Lipitor Tablet) (12/07/22 21:00) Carvedilol Tablet (Coreg Tablet) (12/07/22 18:00) Fluoxetine Capsule (Prozac Capsule) (12/07/22 21:00) (Nf) Lisinopril (12/08/22 09:00) (Nf) Spironolactone (12/08/22 09:00) Clopidogrel Tablet (Plavix Tablet) (12/08/22 09:00) Enoxaparin Injection (Lovenox Injection) (12/08/22 09:00) Consult Cardiology (12/07/22 13:08) Heart Healthy (12/07/22 Lunch) Lisinopril Tablet (Zestril Tablet) (12/08/22 09:00) Spironolactone Tablet (Aldactone Tablet) (12/08/22 09:00) Patient Visit (12/07/22 ) Gait Training, Ea 15 Min (12/07/22 ) Functional Activities, Ea 15 (12/07/22 ) Magnesium (12/08/22 05:00) Obtain Records From (Order) (12/07/22 16:21) Dietary Consult (12/07/22 18:44) Patient Visit (12/07/22 ) Pt Eval Moderate Complexity (12/07/22 ) Gait Training, Ea 15 Min (12/07/22 ) Lisinopril Tablet (Zestril Tablet) (12/08/22 21:00) Basic Metabolic Panel (12/09/22 05:00) Magnesium (12/09/22 05:00) Patient Visit (12/08/22 ) Functional Activities, Ea 15 (12/08/22 ) Gait Training, Ea 15 Min (12/08/22 ) Exercise Therap, Ea 15 Min (12/08/22 ) Patient Visit (12/08/22 ) Functional Activities, Ea 15 (12/08/22 ) Gait Training, Ea 15 Min (12/08/22 ) Rehab Nursing Orders: Ongoing Assess. of Cognitive Status, Ongoing Assess. of Function Status, Bladder Management, Bladder Scan, Bladder Training, Bowel Management, Bowel Training, Disease Management & Educaiton, DVT Prophylaxis, Fall Prevention, Fluid/Electrolyte/Nutrition Mgmt, Infection Prevention, Medication Management & Education, Management of Risks & Complications, Management of Skin Intergrity, Nutrition Management, Pain Management, Patient/Family Support, Safety Management Intensity of Therapy to be met Patient to be seen: Min.3h per day/5 of 7d PT IPOC Problem List: Activity Tolerance, Functional Strength, Safety, Balance, Gait, Transfer Treatment Plan: Continue Plan of Care Functional Activity Yari, Functional Strength, Group Therapy, Gait, Safety, Therapeutic Exercise, Transfers Treatment Duration: December 21, 2022 Frequency: At least 5 of 7 days/Wk (IRF) Estimated Hrs Per Day: 1.5 hours per day OT IPOC Problems: Decreased Activ Tolerance, Decreased UE Strength, Impaired Funct Balance, Impaired I ADL's, Impaired Self-Care Skills OT Treatment, Training and Edu: Yes Plan of Care: ADL Retraining, Functional Mobility, Group Exercise/Act as Ind, UE Funct Exercise/Act, UE Neuromus Re-Ed/Coord, Visual/Perceptual Retrain, OTHER (Energy Conservation) Treatment Duration: January 01, 2023 Frequency: At least 5 of 7 days/Wk (IRF) Estimated Hrs Per Day: 1.[address] IPOC Speech Therapy Treatment Plan: Discontinue ST Treatment Duration: Dec 08, 2022 Frequency: Modified Program (IRF) Estimated Hrs Per Day: Other Production Welding Supervisor/Case Mgmt Production Welding Supervisor/Case Managemen: Discharge Planning Dietitian/Medical Insurance Claims Processor Dietitian/Medical Insurance Claims Processor to monitor nutritional status and make changes and/or recommendations as needed and work with speech pathology on dietary upgrades as the occur. Physician IPOC Medical Issues being managed closely and that require the 24 hour availability of a physician: Recent CVA with vision dysfunction and left sided weakness and EF 10% will require close monitoring from Cardiology and maintain Lifevest in meantime Medical Issues: Bowel/Bladder Function, DVT Prophylaxis, Falls Precautions, Fluid/Electrolyte/Nutrition Balance, Infection Protection, Swallowing Precautions Brief Synthesis of Preadmission Screen, Post-Admission Evaluation, and Therapy Evaluations: PT OT will focus on regaining function with use of AD in order to regain ambulation and ADL independence in order to return home Medical Prognosis: Good Anticipated Length of Stay: 10 days CASSANDRA RIOS DO Dec 08, 2022 05:13
[2022-12-08 05:18] LABS: ALBUMIN 3.4 GM/DL (3.2-4.5)
[2022-12-08 05:19] LABS: POTASSIUM 4.8 MMOL/L (3.6-5.0)
[2022-12-08 05:20] LABS: CALCIUM 9.3 MG/DL (8.5-10.1)
[2022-12-08 05:21] LABS: TOTAL PROTEIN 5.9 GM/DL (6.4-8.2)
[2022-12-08 05:23] LABS: BILIRUBIN,TOTAL 0.5 MG/DL (0.1-1.0)
[2022-12-08 05:27] LABS: MAGNESIUM 1.9 MG/DL (1.6-2.4)
[2022-12-08 07:19] VITALS: BP 117/76
[2022-12-08] MEDS: ASPIRIN E.C. 81 MG (ECOTRIN) TAB PO SCH (08:06)
[2022-12-08] MEDS: SPIRONOLACTONE 25 MG (ALDACTONE) TAB PO SCH (08:07)
[2022-12-08] MEDS: CLOPIDOGREL 75 MG (PLAVIX) TABLET PO SCH (08:07)
[2022-12-08] MEDS: ENOXAPARIN 40 MG/0.4 ML (LOVENOX) SYR SC SCH (08:07)
[2022-12-08] MEDS: DOCUSATE SODIUM 100 MG (COLACE) CAP PO SCH ×2 (08:39→21:20)
[2022-12-08] MEDS: SENNA W/DOCUSATE (SENOKOT S) TABLET PO SCH ×2 (08:39→21:20)
[2022-12-08] MEDS: polyethylene glycoL POWDER 17 GM (MIRALAX) PACK PO SCH ×2 (08:39→21:20)
[2022-12-08] MEDS ORDERED: NON-FORMULARY MEDICATION 1 EA EA (Lisinopril 2.5 MG) PO SCH (09:00)
[2022-12-08] MEDS ORDERED: lisINopril 5 MG (PRINIVIL) TABLET PO SCH (09:00)
[2022-12-08] MEDS ORDERED: NON-FORMULARY MEDICATION 1 EA EA (Spironolactone 50 MG) PO SCH (09:00)
--- NOTE | 2022-12-08 09:54 | Occupational Ther Daily Note ---
OT Current Status-Daily Note Subjective Pt sleeping in bed, woke to name but took increased time to fully wake. Pt agrees to therapy. No c/o pain at this time. Pt does c/o dizziness during session, stopping task and recovery break decreased dizziness. Mental Status/Objective Patient Orientation: Person, Place, Time, Situation Attachments: Telemetry (Life Vest) ADL-Treatment Pt declines shower. Pt requests to complete toileting. SBA using FWW to ambulate to bathroom and transfer to toilet. SBA for toileting for safety. Pt stood and retrieved shirt then donned by self, SBA for safety. Pt donned/doffed footwear by self after set up. Therapy Code Descriptions/Definitions Functional [place] Measure: 0=Not Assessed/NA 4=Minimal Assistance 1=Total Assistance 5=Supervision or Setup 2=Maximal Assistance 6=Modified [place] 3=Moderate Assistance 7=Complete IndependenceSCALE: Activities may be completed with or without assistive devices. 3-Oatfjwneml-pztijrt completes the activity by him/herself with no assistance from a helper. 5-Set-up or Clean-up Assistance-helper sets up or cleans up; patient completes activity. [place] assists only prior to or following the activity. 4-Supervision or Touching Assistance-helper provides verbal cues and/or touching/steadying and/or contact guard assistance as patient completes activity. Assistance may be provided throughout the activity or intermittently. 3-Partial/Moderate Assistance-helper does LESS THAN HALF the effort. [place] lifts, holds or supports trunk or limbs, but provides less than half the effort. 2-Substantial/Maximal Assistance-helper does MORE THAN HALF the effort. [place] lifts or holds trunk or limbs and provides more than half the effort. 6-Wvouwoybd-myursh does ALL the effort. Patient does none of the effort to complete the activity. Or, the assistance of 2 or more helpers is required for the patient to complete the activity. If activity was not attempted, code reason: 7-Patient Refused. 9-Not Applicable-not attempted and the patient did not perform the activity before the current illness, exacerbation or injury. 10-Not Attempted due to Environmental Limitations-(lack of equipment, weather restraints, etc.). 88-Not Attempted due to Medical Conditions or Safety Concerns. Upper Body Dressing (QC): 4 (completed in standing) On/Off Footwear: 5 Toileting Hygiene (QC): 4 Toilet Transfer (QC): 4 Other Treatment Pt ambulated to gym using [facility] SBA. Pt completed B UE strengthen ing/coordination exercises to prepare for daily activities. Pt demonstrates WFL strength and AROM with exercises, L UE coordination minimally delayed with exercises. Skilled instruction for correct technique and modifications when needed. 3# hand wt for bicep curls(30 reps), front punches(30 reps), lateral shldr lifts (20 reps) (90*), shldr lifts (20 reps). Wrist flex/ext with 2# wts (30 reps) After session, pt sitting EOB with call light/phone in reach. All needs met in room. OT Short Term Goals Short Term Goals Time Frame: December 18, 2022 Shower/bathe self: 5 Upper body dressin Lower body dressin Putting on/taking off footwear: 5 OT Care Home Goals Pediatric Clinical Dietician Goals Time Frame: January 01, 2023 Acute change in mental status: 0 Inattention: 0 Disorganized thinkin Altered level of consciousness: 0 Eating (QC): 6 Oral Hygiene (QC): 6 Toileting Hygiene (QC): 6 Shower/Bathe Self (QC): 6 Upper Body Dressing (QC): 6 Lower Body Dressing (QC): 6 On/Off Footwear (QC): 6 Additional Goals: 1-Demonstrate ADL Tasks, 2-Verbalize Understanding, 3- ImproveStrength/Yari 1=Demonstrate adherence to instructed precautions during ADL tasks. 2=Patient will verbalize/demonstrate understanding of assistive devices/m odifications for ADL. 3=Patient will improve strength/tolerance for activity to enable patient to perform ADL's. OT Education/Plan Problem List/Assessment Assessment: No Skilled OT Needs ID'd, Decreased UE Strength, Impaired Coordination, Visual-Perceptual Deficit Discharge Recommendations Plan/Recommendations: Continue POC Treatment Plan/Plan of Care Patient would benefit from OT for education, treatment and training to promote independence in ADL's, mobility, safety and/or upper extremity function for ADL's. Plan of Care: ADL Retraining, Functional Mobility, Group Exercise/Act as Ind, UE Funct Exercise/Act, UE Neuromus Re-Ed/Coord, Visual/Perceptual Retrain, OTHER (Energy Conservation) Treatment Duration: January 01, 2023 Frequency: At least 5 of 7 days/Wk (IRF) Estimated Hrs Per Day: 1.5 hours per day Agreement: Yes Rehab Potential: Good Time Start Time: 08:00 Stop Time: 09:00 DATE: Dec 08, 2022 Total Time Billed (hr/min): 60 Billed Treatment Time 1 visit-ADL 2 (30 min) EX 2 (30 min) DIPTI VELIZ Dec 08, 2022 09:54
--- NOTE | 2022-12-08 11:46 | Physical Therapy Daily Note ---
PT Daily Note-Current Subjective pt sitting EOB upon arrival and willing for therapy. pt stated no pain, dizziness for SOB before treatment. pt did state he was dizzy after standing balance activity secondary to his double vision. Pain Section J - Health Conditions 1. Rarely or not at all 2. Occasionally 3. Frequently 4. Almost constantly 8. Unable to answer Pain Effect on Sleep: 1 Pain Interference with Therapy: 1 Pain Interference w/Day-to-Day: 1 Transfers SCALE: Activities may be completed with or without assistive devices. 9-Fwbvnvdmdo-mzdgscp completes the activity by him/herself with no assistance fr om a helper. 5-Set-up or Clean-up Assistance-helper sets up or cleans up; patient completes activity. [place] assists only prior to or following the activity. 4-Supervision or Touching Assistance-helper provides verbal cues and/or touching/steadying and/or contact guard assistance as patient completes activity. Assistance may be provided throughout the activity or intermittently. 3-Partial/Moderate Assistance-helper does LESS THAN HALF the effort. [place] lifts, holds or supports trunk or limbs, but provides less than half the effort. 2-Substantial/Maximal Assistance-helper does MORE THAN HALF the effort. [place] lifts or holds trunk or limbs and provides more than half the effort. 3-Omjlmhzxv-wkgcvs does ALL the effort. Patient does none of the effort to complete the activity. Or, the assistance of 2 or more helpers is required for the patient to complete the activity. If activity was not attempted, code reason: 7-Patient Refused. 9-Not Applicable-not attempted and the patient did not perform the activity before the current illness, exacerbation or injury. 10-Not Attempted due to Environmental Limitations-(lack of equipment, weather restraints, etc.). 88-Not Attempted due to Medical Conditions or Safety Concerns. Weight Bearing Weight Bearing/Tolerated Weight Bearing/Tolerated Exercises Seated Therapy Exercises: Ankle pumps, Sit to stand, Long arc quads, Chair press-ups, Hip flexion, Hamstring Curls, Glut set Standing: Marching Treatments pt is able to ambulate 100ft x 2 with RW and CGA for safety with rest in between. Pt requires VC of 70% for scanning for obstacle deflection to prevent falls. pt is able to preform sitting the-ex with 2lb ankle weights and red theraband. in all planes of motion ofr 2 sets of 20 with rest secondary to fatigue. pt does need VC to remember to breath when preforming ex to keep from getting light headed. pt is able to preform standing reach activity but did get light headed with double vision this day but no LOB. pt also facilitated a car transfer training with therapist and was able to preform with VC of 50%for safety after showing correct sequencing. pt was able to ascend and descend stairs x 2 with CBA and VC/TC for stair placement as double vision plays a role and pt is lacking in depth perception Assessment Current Status: Good Progress PT Group Home Goals Test Hole Driller Goals PT Group Home Goals Time Frame: December 21, 2022 Roll Left & Right (QC): 6 Sit to Lying (QC): 6 Lying-Sitting on Side/Bed(QC): 6 Sit to Stand (QC): 6 Chair/Vyx-fo-Wczik Xfer(QC): 6 (with device) Toilet Transfer (QC): 6 (with device) Car Transfer (QC): 6 (device) Does the Patient Walk: Yes Walk 10 feet (QC): 6 (with device) Walk 50ft with 2 Turns (QC): 6 (with device) Walk 150 ft (QC): 6 (with device) Walking 10ft on Uneven Surface: 6 (with device) 1 Step (curb) (QC): 6 (with device) 4 Steps (QC): 6 (with railing) 12 Steps (QC): 6 (with railing) Picking up an Object (QC): 6 Does the Pt use WC or Scooter?: No Wheel 50 feet with 2 turns (QC: 9 Wheel 150 feet: 9 PT Plan Problem List Problem List: Activity Tolerance, Safety Treatment/Plan Treatment Plan: Continue Plan of Care Treatment Plan: Functional Activity Yari, Functional Strength, Group Therapy, Gait, Safety, Therapeutic Exercise, Transfers Treatment Duration: December 21, 2022 Frequency: At least 5 of 7 days/Wk (IRF) Estimated Hrs Per Day: 1.5 hours per day Patient and/or Family Agrees t: Yes Time Time In: 0930 Time Out: 1030 DATE: Dec 08, 2022 Total Billed Treatment Time: 60 Total Billed Treatment 1 EX FA x 2 GT pt left in bed with call light and all needs met. Camille Thayer LINING CASER Dec 08, 2022 11:46
--- NOTE | 2022-12-08 11:59 | Occupational Ther Daily Note ---
OT Current Status-Daily Note Subjective Pt sleeping in bed, woke to name. Difficulty fully waking. SO in room. Pt agrees to therapy. No c/o pain. Eye patch in place. Mental Status/Objective Patient Orientation: Person, Place, Time, Situation Attachments: Other-See Comments (Life Vest) ADL-Treatment Therapy Code Descriptions/Definitions Functional [place] Measure: 0=Not Assessed/NA 4=Minimal Assistance 1=Total Assistance 5=Supervision or Setup 2=Maximal Assistance 6=Modified [place] 3=Moderate Assistance 7=Complete IndependenceSCALE: Activities may be completed with or without assistive devices. 9-Qvofllxufo-vfkbsaa completes the activity by him/herself with no assistance f rom a helper. 5-Set-up or Clean-up Assistance-helper sets up or cleans up; patient completes activity. [place] assists only prior to or following the activity. 4-Supervision or Touching Assistance-helper provides verbal cues and/or touching/steadying and/or contact guard assistance as patient completes activity. Assistance may be provided throughout the activity or intermittently. 3-Partial/Moderate Assistance-helper does LESS THAN HALF the effort. [place] lifts, holds or supports trunk or limbs, but provides less than half the effort. 2-Substantial/Maximal Assistance-helper does MORE THAN HALF the effort. [place] lifts or holds trunk or limbs and provides more than half the effort. 4-Rhsginbqb-vjprop does ALL the effort. Patient does none of the effort to complete the activity. Or, the assistance of 2 or more helpers is required for the patient to complete the activity. If activity was not attempted, code reason: 7-Patient Refused. 9-Not Applicable-not attempted and the patient did not perform the activity before the current illness, exacerbation or injury. 10-Not Attempted due to Environmental Limitations-(lack of equipment, weather restraints, etc.). 88-Not Attempted due to Medical Conditions or Safety Concerns. Other Treatment Pt completed visual perceptual, fine motor coordination/strengthening tasks to increase daily activity skills. Pt takes increased time to complete each task but is able to place in designated spots. Pt has decrease touch/temp sensation in fingers, can distinguish if multiple items are in pinch. Pt completed B UE coordination exercises against gravity-B shldr flex to 180* -> elbow flex to 90* touching back of head then reverse order- 20 reps. Pt demonstrated L UE lag compare R UE initially then at end of reps pt able to mirror B UE's. After session, pt lying in bed with call light/phone in reach. All needs met in room. OT Short Term Goals Short Term Goals Time Frame: December 18, 2022 Shower/bathe self: 5 Upper body dressin Lower body dressin Putting on/taking off footwear: 5 OT Blade Changer Goals Penit[facility]iary Goals Time Frame: January 01, 2023 Acute change in mental status: 0 Inattention: 0 Disorganized thinkin Altered level of consciousness: 0 Eating (QC): 6 Oral Hygiene (QC): 6 Toileting Hygiene (QC): 6 Shower/Bathe Self (QC): 6 Upper Body Dressing (QC): 6 Lower Body Dressing (QC): 6 On/Off Footwear (QC): 6 Additional Goals: 1-Demonstrate ADL Tasks, 2-Verbalize Understanding, 3-ImproveStrength/Yari 1=Demonstrate adherence to instructed precautions during ADL tasks. 2=Patient will verbalize/demonstrate understanding of assistive devices/modifications for ADL. 3=Patient will improve strength/tolerance for activity to enable patient to perform ADL's. OT Education/Plan Problem List/Assessment Assessment: Decreased Activ Tolerance, Decreased UE Strength, Impaired Self- Care Skills, Restricted Funct UE ROM Discharge Recommendations Plan/Recommendations: Continue POC Treatment Plan/Plan of Care Patient would benefit from OT for education, treatment and training to promote independence in ADL's, mobility, safety and/or upper extremity function for A DL's. Plan of Care: ADL Retraining, Functional Mobility, Group Exercise/Act as Ind, UE Funct Exercise/Act, UE Neuromus Re-Ed/Coord, Visual/Perceptual Retrain, OTHER (Energy Conservation) Treatment Duration: January 01, 2023 Frequency: At least 5 of 7 days/Wk (IRF) Estimated Hrs Per Day: 1.5 hours per day Agreement: Yes Rehab Potential: Good Time Start Time: 11:00 Stop Time: 11:30 DATE: Dec 08, 2022 Total Time Billed (hr/min): 30 Billed Treatment Time 1 visit-NM 2 (30 min) DIPTI VELIZ Dec 08, 2022 11:59
--- NOTE | 2022-12-08 12:09 | Progress Note - Cardiology ---
Cardiology SOAP Progress Note Subjective: C/O fatigue No c/o CP, SOB or palpitations Objective: I&O/Vital Signs 12/08/22 12/08/22 07:19 09:42 Temp 36.8 Pulse 101 Resp 14 B/P (MAP) 117/76 (90) Pulse Ox 98 98 O2 Delivery Room Air Room Air 12/08/22 00:00 Intake Total 450 ml Output Total 300 ml Balance 150 ml Constitutional: AAO x 3, other (thin) Respiratory: No accessory muscle use, No respiratory distress; chest expansion is symmetric, chest is bilaterally symmetric, lungs clear to auscultation Cardiovascular: regular rate-rhythm; No JVD; S1 and S2 Gastrointestional: soft; No guarding; audible bowel sounds Extremities: no lower extremity edema bilateral Neurologic/Psychiatric: grossly intact (moves all extremities; eye patch in place to left eye; slight left sided facial droop; 4/5 left upper extremities) Skin: No rash on exposed areas, No ulcerations on exposed areas Results/Procedures: Labs Laboratory Tests 12/08/22 04:57: White Blood Count 8.5, Red Blood Count 5.18, Hemoglobin 15.4, Hematocrit 44, Mean Corpuscular Volume 84, Mean Corpuscular Hemoglobin 30, Mean Corpuscular Hemoglobin Concent 35, Red Cell Distribution Width 13.1, Platelet Count 393, Mean Platelet Volume 10.0, Immature Granulocyte % (Auto) 0, Neutrophils (%) (Auto) 44, Lymphocytes (%) (Auto) 43, Monocytes (%) (Auto) 8, Eosinophils (%) (Auto) 4, Basophils (%) (Auto) 1, Neutrophils # (Auto) 3.7, Lymphocytes # (Auto) 3.7, Monocytes # (Auto) 0.6, Eosinophils # (Auto) 0.4H, Basophils # (Auto) 0.1, Immature Granulocyte # (Auto) 0.0, Sodium Level 136, Potassium Level 4.8, Chloride Level 103, Carbon Dioxide Level 22, Anion Gap 11, Blood Urea Nitrogen 21H, Creatinine 1.00, Estimat Glomerular Filtration Rate 101, BUN/Creatinine Ratio 21, Glucose Level 95, Calcium Level 9.3, Corrected Calcium 9.8, Magnesium Level 1.9, Total Bilirubin 0.5, Aspartate Amino Transf (AST/SGOT) 48H, Alanine Aminotransferase (ALT/SGPT) 81H, Alkaline Phosphatase 103, Total Protein 5.9L, Albumin 3.4 A/P: Assessment: Dilated cardiomyopathy - Echocardiogram of 11-29-22 at [facility] by Dr. Barragan showed severe pulmonary chamber enlargement, severe LV systolic dysfunction, severely elevated pulmonary pressures 65-70 mmHg, LVEF 10% - Life Vest in place Elevated PASP on echo of 11-28-22 - PASP 65-70 mmHg - CTA of the chest at [facility] on 11-28-22 showed no acute PE; cardiomegaly; few 2 to 3 solid pulmonary nodules Ac systolic CHF - clinically compensated Acute ischemic CVA on 11-30-22 at [facility] in [place], [place] - residual left sided upper extremity weakness, left sided facial droop and left sided dbl vision - treated with tPA - MRI of the brain at [facility] showed acute thalamic infarct H/O marijuana and methamphetamine abuse - continued cessation advised 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 Moore Monitor lab Records from [facility] in [place], [place] reviewed in detail DIEGO PAL Dec 08, 2022 12:09
--- NOTE | 2022-12-08 12:55 | Progress Note - Cardiology ---
Cardiology SOAP Progress Note Subjective: Short of breath with activity, none at rest No cp or palp or syncope No n/v/d No swelling Gen weakness Objective: I&O/Vital Signs 12/08/22 12/08/22 07:19 09:42 Temp 36.8 Pulse 101 Resp 14 B/P (MAP) 117/76 (90) Pulse Ox 98 98 O2 Delivery Room Air Room Air 12/08/22 00:00 Intake Total 450 ml Output Total 300 ml Balance 150 ml Constitutional: AAO x 3, other (thin) Respiratory: No accessory muscle use, No respiratory distress; chest expansion is symmetric, chest is bilaterally symmetric, lungs clear to auscultation Cardiovascular: regular rate-rhythm; No JVD; S1 and S2 Gastrointestional: soft; No guarding; audible bowel sounds Extremities: no lower extremity edema bilateral Neurologic/Psychiatric: other (moves all extremities; eye patch in place to left eye; slight left sided facial droop; 4/5 left upper extremities) Skin: No rash on exposed areas, No ulcerations on exposed areas Results/Procedures: Labs Laboratory Tests 12/08/22 04:57: White Blood Count 8.5, Red Blood Count 5.18, Hemoglobin 15.4, Hematocrit 44, Mean Corpuscular Volume 84, Mean Corpuscular Hemoglobin 30, Mean Corpuscular Hemoglobin Concent 35, Red Cell Distribution Width 13.1, Platelet Count 393, Mean Platelet Volume 10.0, Immature Granulocyte % (Auto) 0, Neutrophils (%) (Auto) 44, Lymphocytes (%) (Auto) 43, Monocytes (%) (Auto) 8, Eosinophils (%) (Auto) 4, Basophils (%) (Auto) 1, Neutrophils # (Auto) 3.7, Lymphocytes # (Auto) 3.7, Monocytes # (Auto) 0.6, Eosinophils # (Auto) 0.4H, Basophils # (Auto) 0.1, Immature Granulocyte # (Auto) 0.0, Sodium Level 136, Potassium Level 4.8, Chloride Level 103, Carbon Dioxide Level 22, Anion Gap 11, Blood Urea Nitrogen 21H, Creatinine 1.00, Estimat Glomerular Filtration Rate 101, BUN/Creatinine Ratio 21, Glucose Level 95, Calcium Level 9.3, Corrected Calcium 9.8, Magnesium Level 1.9, Total Bilirubin 0.5, Aspartate Amino Transf (AST/SGOT) 48H, Alanine Aminotransferase (ALT/SGPT) 81H, Alkaline Phosphatase 103, Total Protein 5.9L, Albumin 3.4 Laboratory Tests 12/08/22 04:57 A/P: Assessment: Dilated cardiomyopathy - Echocardiogram of 11-29-22 at [facility] by Dr. Barragan showed severe pulmonary chamber enlargement, severe LV systolic dysfunction, severely elevated pulmonary pressures 65-70 mmHg, LVEF 10% - Life Vest in place Elevated PASP on echo of 11-28-22 - PASP 65-70 mmHg - CTA of the chest at [facility] on 11-28-22 showed no acute PE; cardiomegaly; 2 to 3 solid pulmonary nodules - pulm nodules followed and managed by Dr Oscar Dave systolic CHF - clinically compensated Acute ischemic CVA on 11-30-22 at [facility] in [place], [place] - residual left sided upper extremity weakness, left sided facial droop and left sided dbl vision - treated with tPA - MRI of the brain at [facility] showed acute thalamic infarct H/O marijuana and methamphetamine abuse - continued cessation advised 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
--- NOTE | 2022-12-08 13:27 | Physical Therapy Daily Note ---
PT Daily Note-Current Subjective pt in recliner upon entering the room. pt willing for therapy this day Pain Section J - Health Conditions 1. Rarely or not at all 2. Occasionally 3. Frequently 4. Almost constantly 8. Unable to answer Pain Effect on Sleep: 1 Pain Interference with Therapy: 1 Pain Interference w/Day-to-Day: 1 Mental Status Patient Orientation: Person, Place, Time, Situation Transfers SCALE: Activities may be completed with or without assistive devices. 6-Chnyiaxllo-ywkgmfv completes the activity by him/herself with no assistance from a helper. 5-Set-up or Clean-up Assistance-helper sets up or cleans up; patient completes activity. [place] assists only prior to or following the activity. 4-Supervision or Touching Assistance-helper provides verbal cues and/or touching/steadying and/or contact guard assistance as patient completes activity. Assistance may be provided throughout the activity or intermittently. 3-Partial/Moderate Assistance-helper does LESS THAN HALF the effort. [place] lifts, holds or supports trunk or limbs, but provides less than half the effort. 2-Substantial/Maximal Assistance-helper does MORE THAN HALF the effort. [place] lifts or holds trunk or limbs and provides more than half the effort. 0-Fpvrozqvx-bekpcs does ALL the effort. Patient does none of the effort to complete the activity. Or, the assistance of 2 or more helpers is required for the patient to complete the activity. If activity was not attempted, code reason: 7-Patient Refused. 9-Not Applicable-not attempted and the patient did not perform the activity before the current illness, exacerbation or injury. 10-Not Attempted due to Environmental Limitations-(lack of equipment, weather restraints, etc.). 88-Not Attempted due to Medical Conditions or Safety Concerns. Roll Left & Right (QC): 6 Sit to Lying (QC): 6 Lying to Sitting/Side of Bed(Q: 6 Sit to Stand (QC): 4 Chair/Xlh-qa-Rjkyn Xfer(QC): 4 Toilet Transfer (QC): 4 Car Transfer (QC): 4 Weight Bearing Weight Bearing/Tolerated Weight Bearing/Tolerated Gait Training Walk 10 feet (QC): 4 Walk 50 ft with 2 Turns(QC): 4 Walking 10ft/uneven surface-QC: 4 Stair Training 4 Steps (QC): 5 Exercises Seated Therapy Exercises: Sit to stand, Long arc quads, Glut set Standing: Marching Treatments Pt is able to ambulate 100ft with RW and CGA with VC for safety and sequencing with AD of 50%. pt did require rest after ambulation secondary to fatigue. pt is able to preform standing dynamic balance with CGA and slight LOB when not holding onto walker for added support. Pt is able to ascend and descend 6'' stairs using a step to pattern and using both hand rails with VC/TC for depth perception of 40%. Assessment Current Status: Good Progress PT Correction Goals Head Machine Feeder Goals PT Correction Goals Time Frame: December 21, 2022 Roll Left & Right (QC): 6 Sit to Lying (QC): 6 Lying-Sitting on Side/Bed(QC): 6 Sit to Stand (QC): 6 Chair/Bni-bb-Ckomd Xfer(QC): 6 (with device) Toilet Transfer (QC): 6 (with device) Car Transfer (QC): 6 (device) Does the Patient Walk: Yes Walk 10 feet (QC): 6 (with device) Walk 50ft with 2 Turns (QC): 6 (with device) Walk 150 ft (QC): 6 (with device) Walking 10ft on Uneven Surface: 6 (with device) 1 Step (curb) (QC): 6 (with device) 4 Steps (QC): 6 (with railing) 12 Steps (QC): 6 (with railing) Picking up an Object (QC): 6 Does the Pt use WC or Scooter?: No Wheel 50 feet with 2 turns (QC: 9 Wheel 150 feet: 9 PT Plan Problem List Problem List: Activity Tolerance, Safety Treatment/Plan Treatment Plan: Continue Plan of Care Treatment Plan: Functional Activity Yari, Functional Strength, Group Therapy, Gait, Safety, Therapeutic Exercise, Transfers Treatment Duration: December 21, 2022 Frequency: At least 5 of 7 days/Wk (IRF) Estimated Hrs Per Day: 1.5 hours per day Patient and/or Family Agrees t: Yes Time Time In: 1300 Time Out: 1330 DATE: Dec 08, 2022 Total Billed Treatment Time: 30 Total Billed Treatment 1 FA GT pt left in room in bed with call light and all needs met Camille Thayer CAT CRACKER OPERATOR Dec 08, 2022 13:27
[2022-12-08 20:00] VITALS: BP 103/61
[2022-12-08] MEDS: FLUoxetine HCL 20 MG (PROzac) CAP PO SCH (21:21)
[2022-12-08] MEDS: lisINopril 5 MG (PRINIVIL) TABLET PO SCH (21:22)
--- NOTE | 2022-12-09 06:00 | PM&R Progress Note ---
Subjective HPI/CC On Admission Date Seen by Provider: Dec 09, 2022 Time Seen by Provider: 12:00 Subjective/Events-last exam 12/09/2022: Doing well Monitor closely Partner at bedside along with his son BP stable 12/08/2022: No major issues Vision dysfunction improved with eye patch No pain Eating better Appreciate Dr Sotelo Review of Systems General: Fatigue, Malaise Objective Exam Vital Signs Vital Signs Date Time Temp Pulse Resp B/P (MAP) Pulse Ox O2 Delivery O2 Flow Rate FiO2 12/09/22 21:15 98 Room Air 12/09/22 20:00 36.7 98 18 103/62 (76) Capillary Refill : General Appearance: No Apparent Distress, WD/WN, Anxious, Chronically ill, Thin HEENT: PERRL/EOMI, Pharynx Normal, Other (left eye directed down and to left during right eye covered) Neck: Full Range of Motion, Normal Inspection, Non Tender, Supple, Carotid Bruit Respiratory: Chest Non Tender, Lungs Clear, Normal Breath Sounds, No Accessory Muscle Use, No Respiratory Distress Cardiovascular: Regular Rate, Rhythm, No Edema, No Gallop, No JVD, No Murmur, Normal Peripheral Pulses Gastrointestinal: Normal Bowel Sounds, No Organomegaly, No Pulsatile Mass, Non Tender, Soft Back: Normal Inspection, No CVA Tenderness, No Vertebral Tenderness Extremity: Normal Capillary Refill, Normal Inspection, Normal Range of Motion, Non Tender, No Calf Tenderness, No Pedal Edema Neurologic/Psychiatric: Alert, Oriented x3, Abnormal fire technician II-XII, Abnormal Gait, Depressed Affect, Motor Weakness (left sided 4/5) Skin: Normal Color, Warm/Dry Lymphatic: No Adenopathy Results/Procedures Lab Laboratory Tests 12/09/22 05:19 Patient resulted labs reviewed. FIM Transfers Therapy Code Descriptions/Definitions Functional [place] Measure: 0=Not Assessed/NA 4=Minimal Assistance 1=Total Assistance 5=Supervision or Setup 2=Maximal Assistance 6=Modified [place] 3=Moderate Assistance 7=Complete IndependenceSCALE: Activities may be completed with or without assistive devices. 9-Oadbptxdcg-xfapnwx completes the activity by him/herself with no assistance from a helper. 5-Set-up or Clean-up Assistance-helper sets up or cleans up; patient completes activity. [place] assists only prior to or following the activity. 4-Supervision or Touching Assistance-helper provides verbal cues and/or touching/steadying and/or contact guard assistance as patient completes activity. Assistance may be provided throughout the activity or intermittently. 3-Partial/Moderate Assistance-helper does LESS THAN HALF the effort. [place] lifts, holds or supports trunk or limbs, but provides less than half the effort. 2-Substantial/Maximal Assistance-helper does MORE THAN HALF the effort. [place] lifts or holds trunk or limbs and provides more than half the effort. 6-Oduwmztuh-wrjdez does ALL the effort. Patient does none of the effort to co mplete the activity. Or, the assistance of 2 or more helpers is required for the patient to complete the activity. If activity was not attempted, code reason: 7-Patient Refused. 9-Not Applicable-not attempted and the patient did not perform the activity before the current illness, exacerbation or injury. 10-Not Attempted due to Environmental Limitations-(lack of equipment, weather restraints, etc.). 88-Not Attempted due to Medical Conditions or Safety Concerns. Roll Left to Right (QC): 6 Sit to Lying (QC): 6 Sit to Stand (QC): 4 Chair/Hmr-ab-Byzbq Xfer(QC): 4 Car Transfer (QC): 4 Gait Training Does the Patient Walk?: Yes Walk 10 feet (QC): 4 Walk 50 ft with 2 Turns(QC): 4 Walk 150 ft (QC): 3 (min (A) with FWW) Walking 10ft/uneven surface-QC: 4 Gait Assistive Device: FWW Wheelchair Training Does the Pt Use a Wheelchair?: No Wheel 50 ft with 2 turns (QC): 9 Wheel 150 ft (QC): 9 Stair Training 1 Step (curb) (QC): 3 (min (A) with FWW, 2" curb) 4 Steps (QC): 5 12 Steps (QC): 3 (min (B) with (B) rails and v.c. for depth perception issues) Balance Picking up an Object (QC): 4 (steadying assist only with and without AD) ADL-Treatment Eating (QC): 6 Oral Hygiene (QC): 4 (CGA in standing.) Shower/Bathe Self (QC): 3 (Min A for dynamic standing balance and per pt report. ) Upper Body Dressing (QC): 4 (completed in standing) Lower Body Dressing (QC): 3 (CGA-Min A with dynamic standing balance. ) On/Off Footwear (QC): 5 Toileting Hygiene (QC): 4 Toilet Transfer (QC): 4 Assessment/Plan Assessment and Plan Assess & Plan/Chief Complaint Assessment: Right thalamic stroke with left sided weakness and vision impairment CHF EF 10% h/o Meth use Weight loss Plan: Cardiology consult CHF protocol meds Monitor closely 12/08/2022: Appreciate Dr Sotelo 12/09/2022: Monitor closely (1) CVA (cerebral vascular accident) CASSANDRA RIOS DO Dec 09, 2022 06:00
[2022-12-09 06:19] LABS: POTASSIUM 4.6 MMOL/L (3.6-5.0)
[2022-12-09 06:20] LABS: CALCIUM 9.5 MG/DL (8.5-10.1)
[2022-12-09 06:24] LABS: CREATININE SERUM 0.89 MG/DL (0.60-1.30)
[2022-12-09 06:27] LABS: MAGNESIUM 1.9 MG/DL (1.6-2.4)
[2022-12-09 07:33] VITALS: BP 109/71
--- NOTE | 2022-12-09 09:00 | Physical Therapy Daily Note ---
PT Daily Note-Current Subjective pt laying in bed upon arrival and asking to start therapy this day. pt reports no pain during therapy just fatigue and light headed after having preformed standing activity and requires a rest break. pt does state that the bright light does bother him and dim lighting is better. Pain Section J - Health Conditions 1. Rarely or not at all 2. Occasionally 3. Frequently 4. Almost constantly 8. Unable to answer Pain Effect on Sleep: 1 Pain Interference with Therapy: 1 Pain Interference w/Day-to-Day: 1 Mental Status Patient Orientation: Person, Place, Time Transfers SCALE: Activities may be completed with or without assistive devices. 5-Zgimmgnjok-xreoltm completes the activity by him/herself with no assistance from a helper. 5-Set-up or Clean-up Assistance-helper sets up or cleans up; patient completes activity. [place] assists only prior to or following the activity. 4-Supervision or Touching Assistance-helper provides verbal cues and/or touching/steadying and/or contact guard assistance as patient completes activity. Assistance may be provided throughout the activity or intermittently. 3-Partial/Moderate Assistance-helper does LESS THAN HALF the effort. [place] lifts, holds or supports trunk or limbs, but provides less than half the effort. 2-Substantial/Maximal Assistance-helper does MORE THAN HALF the effort. [place] lifts or holds trunk or limbs and provides more than half the effort. 6-Cgzartgqz-nhymez does ALL the effort. Patient does none of the effort to complete the activity. Or, the assistance of 2 or more helpers is required for the patient to complete the activity. If activity was not attempted, code reason: 7-Patient Refused. 9-Not Applicable-not attempted and the patient did not perform the activity before the current illness, exacerbation or injury. 10-Not Attempted due to Environmental Limitations-(lack of equipment, weather restraints, etc.). 88-Not Attempted due to Medical Conditions or Safety Concerns. Weight Bearing Weight Bearing/Tolerated Weight Bearing/Tolerated Exercises Supine Ex: Short Arc Quads Standing: Marching, Mini squats, Sit to Stand, Side steps, Stepping over objects, Weight shifts Treatments Pt has a mobility limitation that has significantly impairs his ability to participate in one or more mobility-related activities of daily living (MRADL) in the home. the patient is able to safely use the walker and the functional mobility deficit can be sufficiently resolved with the use of a walker. 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 Pt does require SBA for VC of 20% for correct sequencing to prevent fall when picking up lower level objects. pt is able to ambulate with Supervision this session while being able to recall some safety AD edu and able to self correct from yesterday i.e keeping the walker close. being self aware when rest breaks are needed to prevent fatigue. pt is able to ambulate 300ft with 3 rest breaks and is able to resume ambulation after aprox 2 min rest. pt is able to preform ambulation on different surfaces this day with CGA in // bars working to increase dynamic standing balance and increasing self correction to prevent falls. Assessment Current Status: Excellent Progress PT Legal Arbitrator Goals Senior Living Goals PT Senior Living Goals Time Frame: December 21, 2022 Roll Left & Right (QC): 6 Sit to Lying (QC): 6 Lying-Sitting on Side/Bed(QC): 6 Sit to Stand (QC): 6 Chair/Qjg-fp-Oimtr Xfer(QC): 6 (with device) Toilet Transfer (QC): 6 (with device) Car Transfer (QC): 6 (device) Does the Patient Walk: Yes Walk 10 feet (QC): 6 (with device) Walk 50ft with 2 Turns (QC): 6 (with device) Walk 150 ft (QC): 6 (with device) Walking 10ft on Uneven Surface: 6 (with device) 1 Step (curb) (QC): 6 (with device) 4 Steps (QC): 6 (with railing) 12 Steps (QC): 6 (with railing) Picking up an Object (QC): 6 Does the Pt use WC or Scooter?: No Wheel 50 feet with 2 turns (QC: 9 Wheel 150 feet: 9 PT Plan Problem List Problem List: Functional Strength, Safety Treatment/Plan Treatment Plan: Continue Plan of Care Treatment Plan: Functional Activity Yari, Functional Strength, Group Therapy, Gait, Safety, Therapeutic Exercise, Transfers Treatment Duration: December 21, 2022 Frequency: At least 5 of 7 days/Wk (IRF) Estimated Hrs Per Day: 1.5 hours per day Patient and/or Family Agrees t: Yes Time Time In: 0750 Time Out: 0850 DATE: Dec 09, 2022 Total Billed Treatment Time: 60 Total Billed Treatment 1 GTx2 EX FA Pt left sitting EOB with call light and all needs met. Camille Thayer SUPERVISOR [employer] Dec 09, 2022 09:00
[2022-12-09 09:04] VITALS: BP 100/70
--- NOTE | 2022-12-09 09:50 | Occupational Ther Daily Note ---
OT Current Status-Daily Note Subjective Pt in bed, agreeable to OT tx. Pt wants to shower today, but is waiting on his SO arrival since he feels more comfortable with her assisting him with task. Shower planned for 10AM tx session if SO is present. Mental Status/Objective Patient Orientation: Person, Place, Time, Situation Attachments: Other-See Comments (eye patch) ADL-Treatment Therapy Code Descriptions/Definitions Functional [place] Measure: 0=Not Assessed/NA 4=Minimal Assistance 1=Total Assistance 5=Supervision or Setup 2=Maximal Assistance 6=Modified [place] 3=Moderate Assistance 7=Complete IndependenceSCALE: Activities may be completed with or without assistive devices. 1-Hdgamqubnc-lzitkta completes the activity by him/herself with no assistance from a helper. 5-Set-up or Clean-up Assistance-helper sets up or cleans up; patient completes activity. [place] assists only prior to or following the activity. 4-Supervision or Touching Assistance-helper provides verbal cues and/or touching/steadying and/or contact guard assistance as patient completes activity. Assistance may be provided throughout the activity or intermittently. 3-Partial/Moderate Assistance-helper does LESS THAN HALF the effort. [place] lifts, holds or supports trunk or limbs, but provides less than half the effort. 2-Substantial/Maximal Assistance-helper does MORE THAN HALF the effort. [place] lifts or holds trunk or limbs and provides more than half the effort. 1-Waphmoagb-pqhzpj does ALL the effort. Patient does none of the effort to complete the activity. Or, the assistance of 2 or more helpers is required for the patient to complete the activity. If activity was not attempted, code reason: 7-Patient Refused. 9-Not Applicable-not attempted and the patient did not perform the activity before the current illness, exacerbation or injury. 10-Not Attempted due to Environmental Limitations-(lack of equipment, weather restraints, etc.). 88-Not Attempted due to Medical Conditions or Safety Concerns. On/Off Footwear: 6 Toileting Hygiene (QC): 4 (supervision) Toilet Transfer (QC): 4 (supervision) Other Treatment Pt in bed, transferred supine to sit EOB independently, then donned footwear at EOB. Pt used FWW to transfer into bathroom and onto toilet. Pt completed toileting, then used FWW to perform functional mobility to therapy gym, SBA. OT tx focused on increasing BUE strength and activity tolerance. Pt completed arm bike x10 mins, minimal resistance. OT encouraged pt to take rest breaks as ne eded. Pt returned to his room, SBA using FWW, transferring to EOB. Post tx, pt at EOB, call light in reach and all needs met. Education OT Patient Education: Correct positioning, Energy conservation, Modified ADL techniques, Progress toward Goal/Update tx plan, Purpose of tx/functional activities, Rehab process Teaching Recipient: Patient Teaching Methods: Discussion Response to Teaching: Verbalize Understanding OT Short Term Goals Short Term Goals Time Frame: December 18, 2022 Shower/bathe self: 5 Upper body dressin Lower body dressin Putting on/taking off footwear: 5 OT Change Control Specialist Goals Change Control Specialist Goals Time Frame: January 01, 2023 Acute change in mental status: 0 Inattention: 0 Disorganized thinkin Altered level of consciousness: 0 Eating (QC): 6 Oral Hygiene (QC): 6 Toileting Hygiene (QC): 6 Shower/Bathe Self (QC): 6 Upper Body Dressing (QC): 6 Lower Body Dressing (QC): 6 On/Off Footwear (QC): 6 Additional Goals: 1-Demonstrate ADL Tasks, 2-Verbalize Understanding, 3-Improve Strength/Yari 1=Demonstrate adherence to instructed precautions during ADL tasks. 2=Patient will verbalize/demonstrate understanding of assistive devices/modifications for ADL. 3=Patient will improve strength/tolerance for activity to enable patient to pe rform ADL's. OT Education/Plan Problem List/Assessment Assessment: Decreased Activ Tolerance, Impaired Funct Balance, Impaired I ADL's, Impaired Self-Care Skills, Visual-Perceptual Deficit Discharge Recommendations Plan/Recommendations: Continue POC Treatment Plan/Plan of Care Patient would benefit from OT for education, treatment and training to promote independence in ADL's, mobility, safety and/or upper extremity function for ADL's. Plan of Care: ADL Retraining, Functional Mobility, Group Exercise/Act as Ind, UE Funct Exercise/Act, UE Neuromus Re-Ed/Coord, Visual/Perceptual Retrain, OTHER (Energy Conservation) Treatment Duration: January 01, 2023 Frequency: At least 5 of 7 days/Wk (IRF) Estimated Hrs Per Day: 1.5 hours per day Agreement: Yes Rehab Potential: Good Time Start Time: 09:00 Stop Time: 09:30 DATE: Dec 09, 2022 Total Time Billed (hr/min): 30 Billed Treatment Time 1, ADL (15'), EX (15') THOMAS WHITAKER OT Dec 09, 2022 09:49
[2022-12-09] MEDS: lisINopril 5 MG (PRINIVIL) TABLET PO SCH ×2 (09:51→21:27)
[2022-12-09] MEDS: SPIRONOLACTONE 25 MG (ALDACTONE) TAB PO SCH (09:51)
[2022-12-09] MEDS: ENOXAPARIN 40 MG/0.4 ML (LOVENOX) SYR SC SCH (09:51)
[2022-12-09] MEDS: ASPIRIN E.C. 81 MG (ECOTRIN) TAB PO SCH (09:51)
[2022-12-09] MEDS: CLOPIDOGREL 75 MG (PLAVIX) TABLET PO SCH (09:52)
[2022-12-09] MEDS: SENNA W/DOCUSATE (SENOKOT S) TABLET PO SCH ×2 (09:52→21:25)
[2022-12-09] MEDS: DOCUSATE SODIUM 100 MG (COLACE) CAP PO SCH ×2 (09:52→21:25)
[2022-12-09] MEDS: polyethylene glycoL POWDER 17 GM (MIRALAX) PACK PO SCH ×2 (09:52→21:25)
--- NOTE | 2022-12-09 10:20 | Physical Therapy Daily Note ---
PT Daily Note-Current Subjective pt in bed upon arrival and is willing for therapy. pt reports no pain and only "slight" fatigue after previous therapy. Pain Section J - Health Conditions 1. Rarely or not at all 2. Occasionally 3. Frequently 4. Almost constantly 8. Unable to answer Pain Effect on Sleep: 1 Pain Interference with Therapy: 1 Pain Interference w/Day-to-Day: 1 Mental Status Patient Orientation: Person, Place, Time, Situation Transfers SCALE: Activities may be completed with or without assistive devices. 4-Rntiwszmks-agowuxm completes the activity by him/herself with no assistance from a helper. 5-Set-up or Clean-up Assistance-helper sets up or cleans up; patient completes activity. [place] assists only prior to or following the activity. 4-Supervision or Touching Assistance-helper provides verbal cues and/or touching/steadying and/or contact guard assistance as patient completes activity. Assistance may be provided throughout the activity or intermittently. 3-Partial/Moderate Assistance-helper does LESS THAN HALF the effort. [place] lifts, holds or supports trunk or limbs, but provides less than half the effort. 2-Substantial/Maximal Assistance-helper does MORE THAN HALF the effort. [place] lifts or holds trunk or limbs and provides more than half the effort. 2-Lobvuiqjw-ugmgfh does ALL the effort. Patient does none of the effort to complete the activity. Or, the assistance of 2 or more helpers is required for the patient to complete the activity. If activity was not attempted, code reason: 7-Patient Refused. 9-Not Applicable-not attempted and the patient did not perform the activity before the current illness, exacerbation or injury. 10-Not Attempted due to Environmental Limitations-(lack of equipment, weather restraints, etc.). 88-Not Attempted due to Medical Conditions or Safety Concerns. Roll Left & Right (QC): 6 Sit to Lying (QC): 6 Lying to Sitting/Side of Bed(Q: 6 Sit to Stand (QC): 6 Chair/Njn-iw-Eanqb Xfer(QC): 6 Toilet Transfer (QC): 6 Car Transfer (QC): 5 Weight Bearing Weight Bearing/Tolerated Weight Bearing/Tolerated Gait Training Walk 10 feet (QC): 5 Walk 50 ft with 2 Turns(QC): 5 Walk 150 ft (QC): 5 Walking 10ft/uneven surface-QC: 5 Balance Picking up an Object (QC): 5 Treatments pt is able to preform car transfers with SBA with VC of 50% for correct sequencing in conjunction with the AD. pt is able to ambulate 50ft with RW and SBA with no rest break and a slightly fast gait velocity with more self correction and obstacle scanning to prevent fall/trips when ambulating. PT Industrial Relations Manager Goals Industrial Relations Manager Goals PT Industrial Relations Manager Goals Time Frame: December 21, 2022 Roll Left & Right (QC): 6 Sit to Lying (QC): 6 Lying-Sitting on Side/Bed(QC): 6 Sit to Stand (QC): 6 Chair/Rfz-mr-Astfn Xfer(QC): 6 (with device) Toilet Transfer (QC): 6 (with device) Car Transfer (QC): 6 (device) Does the Patient Walk: Yes Walk 10 feet (QC): 6 (with device) Walk 50ft with 2 Turns (QC): 6 (with device) Walk 150 ft (QC): 6 (with device) Walking 10ft on Uneven Surface: 6 (with device) 1 Step (curb) (QC): 6 (with device) 4 Steps (QC): 6 (with railing) 12 Steps (QC): 6 (with railing) Picking up an Object (QC): 6 Does the Pt use WC or Scooter?: No Wheel 50 feet with 2 turns (QC: 9 Wheel 150 feet: 9 PT Plan Problem List Problem List: Activity Tolerance, Safety Treatment/Plan Treatment Plan: Continue Plan of Care Treatment Plan: Functional Activity Yari, Functional Strength, Group Therapy, Gait, Safety, Therapeutic Exercise, Transfers Treatment Duration: December 21, 2022 Frequency: At least 5 of 7 days/Wk (IRF) Estimated Hrs Per Day: 1.5 hours per day Patient and/or Family Agrees t: Yes Safety Risks/Education Patient Education: Gait Training, Safety Issues Teaching Recipient: Patient Teaching Methods: Demonstration Response to Teaching: Return Demonstration Time Time In: 0930 Time Out: 1000 DATE: Dec 09, 2022 Total Billed Treatment Time: 30 Total Billed Treatment 1 FA GT pt left sitting EOB with call light and all needs met. Camille Thayer CLASSIFIED ADVERTISING CLERK Dec 09, 2022 10:20
--- NOTE | 2022-12-09 11:03 | Occupational Ther Daily Note ---
OT Current Status-Daily Note Subjective Pt in bed, agreeable to OT Tx. Pt's SO present to assist pt in shower. OT provided education to allow pt to complete tasks himself and only assist if needed. Mental Status/Objective Attachments: Other-See Comments (LifeVest) ADL-Treatment Therapy Code Descriptions/Definitions Functional [place] Measure: 0=Not Assessed/NA 4=Minimal Assistance 1=Total Assistance 5=Supervision or Setup 2=Maximal Assistance 6=Modified [place] 3=Moderate Assistance 7=Complete IndependenceSCALE: Activities may be completed with or without assistive devices. 3-Aopevackhc-tmfzdwz completes the activity by him/herself with no assistance from a helper. 5-Set-up or Clean-up Assistance-helper sets up or cleans up; patient completes activity. [place] assists only prior to or following the activity. 4-Supervision or Touching Assistance-helper provides verbal cues and/or touching/steadying and/or contact guard assistance as patient completes activity. Assistance may be provided throughout the activity or intermittently. 3-Partial/Moderate Assistance-helper does LESS THAN HALF the effort. [place] lifts, holds or supports trunk or limbs, but provides less than half the effort. 2-Substantial/Maximal Assistance-helper does MORE THAN HALF the effort. [place] lifts or holds trunk or limbs and provides more than half the effort. 1-Hzsacrrcv-ismcaw does ALL the effort. Patient does none of the effort to complete the activity. Or, the assistance of 2 or more helpers is required for the patient to complete the activity. If activity was not attempted, code reason: 7-Patient Refused. 9-Not Applicable-not attempted and the patient did not perform the activity before the current illness, exacerbation or injury. 10-Not Attempted due to Environmental Limitations-(lack of equipment, weather restraints, etc.). 88-Not Attempted due to Medical Conditions or Safety Concerns. Shower/Bathe Self (QC): 4 (Supervision) Upper Body Dressing (QC): 3 (Min A with lifevest. Set up with shirt.) Lower Body Dressing (QC): 3 (Min A due to fatigue) On/Off Footwear: 5 Other Treatment Pt in bed, transferred supine to sit EOB independently, then used FWW to transfer into bathroom and onto PR. Pt's SO present to assist pt through shower if needed, OT present to observe shower and answer questions/assist as needed. Pt's SO demonstrated ability to assist pt without safety concerns. Supervision provided during the shower. Pt able to don shirt and shoes with set up assist. Assistance provided by SO for LifeVest. SO demonstrates ability to assist with donning/doffing LifeVest without assistance. Pt required min A with donning LE clothing due to fatigue post shower. Pt returned to EOB using FWW, SBA. Post tx, pt at EOB, call light in reach and all needs met. Education OT Patient Education: Correct positioning, Energy conservation, Modified ADL techniques, Progress toward Goal/Update tx plan, Purpose of tx/functional activities, Rehab process Teaching Recipient: Patient Teaching Methods: Discussion Response to Teaching: Verbalize Understanding OT Short Term Goals Short Term Goals Time Frame: December 18, 2022 Shower/bathe self: 5 Upper body dressin Lower body dressin Putting on/taking off footwear: 5 OT Usp Goals Usp Goals Time Frame: January 01, 2023 Acute change in mental status: 0 Inattention: 0 Disorganized thinkin Altered level of consciousness: 0 Eating (QC): 6 Oral Hygiene (QC): 6 Toileting Hygiene (QC): 6 Shower/Bathe Self (QC): 6 Upper Body Dressing (QC): 6 Lower Body Dressing (QC): 6 On/Off Footwear (QC): 6 Additional Goals: 1-Demonstrate ADL Tasks, 2-Verbalize Understanding, 3- ImproveStrength/Yari 1=Demonstrate adherence to instructed precautions during ADL tasks. 2=Patient will verbalize/demonstrate understanding of assistive devices/modifications for ADL. 3=Patient will improve strength/tolerance for activity to enable patient to perform ADL's. OT Education/Plan Problem List/Assessment Assessment: Decreased Activ Tolerance, Decreased UE Strength, Impaired I ADL's Discharge Recommendations Plan/Recommendations: Continue POC Treatment Plan/Plan of Care Patient would benefit from OT for education, treatment and training to promote independence in ADL's, mobility, safety and/or upper extremity function for ADL's. Plan of Care: ADL Retraining, Functional Mobility, Group Exercise/Act as Ind, UE Funct Exercise/Act, UE Neuromus Re-Ed/Coord, Visual/Perceptual Retrain, OTHER (Energy Conservation) Treatment Duration: January 01, 2023 Frequency: At least 5 of 7 days/Wk (IRF) Estimated Hrs Per Day: 1.5 hours per day Agreement: Yes Rehab Potential: Good Time Start Time: 10:00 Stop Time: 11:00 DATE: Dec 09, 2022 Total Time Billed (hr/min): 60 Billed Treatment Time 1, ADL 4 THOMAS WHITAKER OT Dec 09, 2022 11:03
--- NOTE | 2022-12-09 13:16 | Progress Note - Cardiology ---
Cardiology SOAP Progress Note Subjective: No cp or palp or syncope Shortness of breath with activity No focal weakness Gen weakness present No n/v/d Objective: I&O/Vital Signs 12/09/22 12/09/22 12/09/22 07:33 09:00 09:04 Temp 37.0 36.2 Pulse 102 93 Resp 16 16 B/P (MAP) 109/71 (84) 100/70 (80) Pulse Ox 99 99 98 O2 Delivery Room Air Room Air Room Air 12/09/22 00:00 Intake Total 960 ml Balance 960 ml Constitutional: AAO x 3, other (thin) Respiratory: No accessory muscle use, No respiratory distress; chest expansion is symmetric, chest is bilaterally symmetric, lungs clear to auscultation Cardiovascular: regular rate-rhythm; No JVD; S1 and S2 Gastrointestional: soft; No guarding; audible bowel sounds Extremities: no lower extremity edema bilateral Neurologic/Psychiatric: other (moves all extremities; eye patch in place to left eye; slight left sided facial droop; 4/5 left upper extremities) Skin: No rash on exposed areas, No ulcerations on exposed areas Results/Procedures: Labs Laboratory Tests 12/09/22 05:19: Sodium Level 137, Potassium Level 4.6, Chloride Level 105, Carbon Dioxide Level 21, Anion Gap 11, Blood Urea Nitrogen 18, Creatinine 0.89, Estimat Glomerular Filtration Rate 115, BUN/Creatinine Ratio 20, Glucose Level 92, Calcium Level 9.5, Magnesium Level 1.9 Laboratory Tests 12/08/22 04:57 12/09/22 05:19 A/P: Assessment: Dilated cardiomyopathy - Echocardiogram of 11-29-22 at [facility] by Dr. Barragan showed severe pulmonary chamber enlargement, severe LV systolic dysfunction, severely elevated pulmonary pressures 65-70 mmHg, LVEF 10% - Life Vest in place Elevated PASP on echo of 11-28-22 - PASP 65-70 mmHg - CTA of the chest at [facility] on 11-28-22 showed no acute PE; cardiomegaly; 2 to 3 solid pulmonary nodules - pulm nodules followed and managed by Dr Oscar Dave systolic CHF - clinically compensated Acute ischemic CVA on 11-30-22 at [facility] in [place], [place] - residual left sided upper extremity weakness, left sided facial droop and left sided dbl vision - treated with tPA - MRI of the brain at [facility] showed acute thalamic infarct H/O marijuana and methamphetamine abuse - continued cessation advised 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
--- NOTE | 2022-12-09 13:56 | Speech Therapy Progress Note ---
Therapy Progress Note ST received consultation for cognitive linguistic evaluation. ST skilled services not warranted at this time. Please re-consult with additional needs. Thank you. BELLA PERRY Dec 09, 2022 13:56
[2022-12-09 20:00] VITALS: BP 103/62
[2022-12-09] MEDS: FLUoxetine HCL 20 MG (PROzac) CAP PO SCH (21:27)
[2022-12-10] MEDS: ASPIRIN E.C. 81 MG (ECOTRIN) TAB PO SCH (07:31)
[2022-12-10] MEDS: CLOPIDOGREL 75 MG (PLAVIX) TABLET PO SCH (07:31)
[2022-12-10] MEDS: SPIRONOLACTONE 25 MG (ALDACTONE) TAB PO SCH (07:32)
[2022-12-10] MEDS: DOCUSATE SODIUM 100 MG (COLACE) CAP PO SCH ×2 (07:32→19:39)
[2022-12-10] MEDS: polyethylene glycoL POWDER 17 GM (MIRALAX) PACK PO SCH ×2 (07:32→19:39)
[2022-12-10] MEDS: ENOXAPARIN 40 MG/0.4 ML (LOVENOX) SYR SC SCH (07:32)
[2022-12-10] MEDS: SENNA W/DOCUSATE (SENOKOT S) TABLET PO SCH ×2 (07:33→19:39)
[2022-12-10 07:39] VITALS: BP 92/52
[2022-12-10] MEDS: lisINopril 5 MG (PRINIVIL) TABLET PO SCH ×2 (07:53→20:49)
[2022-12-10 07:55] VITALS: BP 96/57
--- NOTE | 2022-12-10 09:45 | Occupational Ther Daily Note ---
OT Current Status-Daily Note Subjective Pt agreeable to OT/PT cotreat followed by OT Tx. Mental Status/Objective Patient Orientation: Normal For Age Attachments: Other-See Comments (LifeVest. ) ADL-Treatment Therapy Code Descriptions/Definitions Functional Todd Measure: 0=Not Assessed/NA 4=Minimal Assistance 1=Total Assistance 5=Supervision or Setup 2=Maximal Assistance 6=Modified Todd 3=Moderate Assistance 7=Complete IndependenceSCALE: Activities may be completed with or without assistive devices. 6-Yasxewsavq-vzeuwto completes the activity by him/herself with no assistance from a helper. 5-Set-up or Clean-up Assistance-helper sets up or cleans up; patient completes activity. Kenedy assists only prior to or following the activity. 4-Supervision or Touching Assistance-helper provides verbal cues and/or touching/steadying and/or contact guard assistance as patient completes activity. Assistance may be provided throughout the activity or intermittently. 3-Partial/Moderate Assistance-helper does LESS THAN HALF the effort. Kenedy lifts, holds or supports trunk or limbs, but provides less than half the effort. 2-Substantial/Maximal Assistance-helper does MORE THAN HALF the effort. Kenedy lifts or holds trunk or limbs and provides more than half the effort. 9-Swsvpkpgl-omhxju does ALL the effort. Patient does none of the effort to complete the activity. Or, the assistance of 2 or more helpers is required for the patient to complete the activity. If activity was not attempted, code reason: 7-Patient Refused. 9-Not Applicable-not attempted and the patient did not perform the activity before the current illness, exacerbation or injury. 10-Not Attempted due to Environmental Limitations-(lack of equipment, weather restraints, etc.). 88-Not Attempted due to Medical Conditions or Safety Concerns. On/Off Footwear: 5 Other Treatment OT/PT cotreat due to skill of 2 clinicians required which a rehabilitation manager could not perform in order to coordinate UE/LEs, decrease fall risk, and in order to focus on higher level balance tasks. OT focused on UE placement, cues for sequencing and safety and ADLS, PT focused on LE placement, gross overall movement, transfers and mobility. Pt used FWW to perform functional mobility to therapy gym. Pt educated on using QC and sequencing of QC and LEs. Pt required max VCs for sequencing of steps, CGA (slight LOB noted when pivoting with QC). Pt able to locate 10 cones around therapy gym, using QC. Multiple rest breaks required due to slight c/o dizziness, quickly resolved with seated rest break. Pt used QC to transfer to table in [facility] common area. OT tx focused on dynamic standing balance. Pt stood at table completing UE reaching task, planting plants. Pt able to stand at table, scoop soil from bin, place into flower pot, place pant into flower pot, place more dirt and pat the dirt down. Pt required 2 seated rest breaks throughout task. Longest stand ~15 mins. Pt also participated in communication with other patients/staff members in [facility] common area, providing pt with social interaction opportunities. Pt used FWW to perform functional mobility to therapy gym. OT tx focused on increasing BUE strength and activity tolerance. Pt completed arm bike, x10 mins, minimal resistance, 2 rest breaks. Pt required reminders throughout task to take rest breaks. Pt returned to his room with FWW, SBA, transferring to EOB. Post tx, pt EOB, call light in reach and all needs met. Education OT Patient Education: Correct positioning, Energy conservation, Modified ADL techniques, Progress toward Goal/Update tx plan, Purpose of tx/functional activities, Rehab process Teaching Recipient: Patient Teaching Methods: Discussion Response to Teaching: Verbalize Understanding OT Short Term Goals Short Term Goals Time Frame: December 18, 2022 Shower/bathe self: 5 Upper body dressin Lower body dressin Putting on/taking off footwear: 5 OT Bright Cutter Goals Senior Living Goals Time Frame: January 01, 2023 Acute change in mental status: 0 Inattention: 0 Disorganized thinkin Altered level of consciousness: 0 Eating (QC): 6 Oral Hygiene (QC): 6 Toileting Hygiene (QC): 6 Shower/Bathe Self (QC): 6 Upper Body Dressing (QC): 6 Lower Body Dressing (QC): 6 On/Off Footwear (QC): 6 Additional Goals: 1-Demonstrate ADL Tasks, 2-Verbalize Understanding, 3-Imp roveStrength/Yari 1=Demonstrate adherence to instructed precautions during ADL tasks. 2=Patient will verbalize/demonstrate understanding of assistive devices/modifications for ADL. 3=Patient will improve strength/tolerance for activity to enable patient to perform ADL's. OT Education/Plan Problem List/Assessment Assessment: Decreased Activ Tolerance, Decreased UE Strength, Impaired Funct Balance, Impaired I ADL's, Impaired Self-Care Skills Discharge Recommendations Plan/Recommendations: Continue POC Treatment Plan/Plan of Care Patient would benefit from OT for education, treatment and training to promote independence in ADL's, mobility, safety and/or upper extremity function for ADL's. Plan of Care: ADL Retraining, Functional Mobility, Group Exercise/Act as Ind, UE Funct Exercise/Act, UE Neuromus Re-Ed/Coord, Visual/Perceptual Retrain, OTHER (Energy Conservation) Treatment Duration: January 01, 2023 Frequency: At least 5 of 7 days/Wk (IRF) Estimated Hrs Per Day: 1.5 hours per day Agreement: Yes Rehab Potential: Good Time Start Time: 08:30 Stop Time: 10:00 DATE: Dec 10, 2022 Total Time Billed (hr/min): 90 Billed Treatment Time [id number] Cotreat, [id number] OT tx 1, FA 5 (75'), EX (15') THOMAS WHITAKER OT Dec 10, 2022 09:45
--- NOTE | 2022-12-10 10:14 | Physical Therapy Daily Note ---
PT Daily Note-Current Subjective pt in bed upon arrival. pt willing for therapy but had just woken up and required extra time to get his bearings before ambulating. . OT/PT cotreat due to skill of 2 clinicians required which a rehabilitation clerk could not perform in order to coordinate UE/LEs, decrease fall risk, and due to pt's limitations in strength, activity tolerance, mobility/transfers, visual deficits. OT focused on UE placement, cues for sequencing and safety and ADLs, PT focused on LE placement, gross overall movement, transfers and mobility. Pain Section J - Health Conditions 1. Rarely or not at all 2. Occasionally 3. Frequently 4. Almost constantly 8. Unable to answer Pain Effect on Sleep: 1 Pain Interference with Therapy: 1 Pain Interference w/Day-to-Day: 1 Mental Status Patient Orientation: Person, Place, Time, Situation Transfers SCALE: Activities may be completed with or without assistive devices. 9-Fuyixodeaq-hcbzhiw completes the activity by him/herself with no assistance from a helper. 5-Set-up or Clean-up Assistance-helper sets up or cleans up; patient completes a ctivity. Driscoll assists only prior to or following the activity. 4-Supervision or Touching Assistance-helper provides verbal cues and/or touching/steadying and/or contact guard assistance as patient completes activity. Assistance may be provided throughout the activity or intermittently. 3-Partial/Moderate Assistance-helper does LESS THAN HALF the effort. Driscoll lifts, holds or supports trunk or limbs, but provides less than half the effort. 2-Substantial/Maximal Assistance-helper does MORE THAN HALF the effort. Driscoll lifts or holds trunk or limbs and provides more than half the effort. 7-Ogrwovfvn-zymlxm does ALL the effort. Patient does none of the effort to complete the activity. Or, the assistance of 2 or more helpers is required for the patient to complete the activity. If activity was not attempted, code reason: 7-Patient Refused. 9-Not Applicable-not attempted and the patient did not perform the activity before the current illness, exacerbation or injury. 10-Not Attempted due to Environmental Limitations-(lack of equipment, weather restraints, etc.). 88-Not Attempted due to Medical Conditions or Safety Concerns. Weight Bearing Weight Bearing/Tolerated Weight Bearing/Tolerated Treatments pt educated on the correct usage of Quad cane this day to in time move from RW to Quad cane. pt required Max VC for correct usage and sequencing for safe ambulation. pt had difficulty recalling steps. Pt did require CGA as slight LOB when pivoting with quad cane was present. pt did requrie multiple rest break when ambulating secondary to dizziness from thought process of new task. Assessment Current Status: Good Progress PT Nursing Home Goals Wheel Filler Goals PT Nursing Home Goals Time Frame: December 21, 2022 Roll Left & Right (QC): 6 Sit to Lying (QC): 6 Lying-Sitting on Side/Bed(QC): 6 Sit to Stand (QC): 6 Chair/Laq-ez-Bweln Xfer(QC): 6 (with device) Toilet Transfer (QC): 6 (with device) Car Transfer (QC): 6 (device) Does the Patient Walk: Yes Walk 10 feet (QC): 6 (with device) Walk 50ft with 2 Turns (QC): 6 (with device) Walk 150 ft (QC): 6 (with device) Walking 10ft on Uneven Surface: 6 (with device) 1 Step (curb) (QC): 6 (with device) 4 Steps (QC): 6 (with railing) 12 Steps (QC): 6 (with railing) Picking up an Object (QC): 6 Does the Pt use WC or Scooter?: No Wheel 50 feet with 2 turns (QC: 9 Wheel 150 feet: 9 PT Plan Treatment/Plan Treatment Plan: Continue Plan of Care Treatment Plan: Functional Activity Yari, Functional Strength, Group Therapy, Gait, Safety, Therapeutic Exercise, Transfers Treatment Duration: December 21, 2022 Frequency: At least 5 of 7 days/Wk (IRF) Estimated Hrs Per Day: 1.5 hours per day Patient and/or Family Agrees t: Yes Time Time In: 0830 Time Out: 0900 DATE: Dec 10, 2022 Total Billed Treatment Time: 30 Total Billed Treatment 1 GTx2 CO-treat with OT for 30 mins this day. pt left with OT and all needs met. Camille Thayer VETERIN[employer] TECH[employer]OLOGY INSTRUCTOR Dec 10, 2022 10:14
--- NOTE | 2022-12-10 12:41 | PM&R Progress Note ---
Subjective HPI/CC On Admission Date Seen by Provider: Dec 10, 2022 Time Seen by Provider: 11:45 Subjective/Events-last exam 12/10/2022: No major issues Working with PT OT Eye patch helps No pain 12/09/2022: Doing well Monitor closely Partner at bedside along with his son BP stable 12/08/2022: No major issues Vision dysfunction improved with eye patch No pain Eating better Appreciate Dr Sotelo Review of Systems General: Fatigue, Malaise Objective Exam Vital Signs Vital Signs Date Time Temp Pulse Resp B/P (MAP) Pulse Ox O2 Delivery O2 Flow Rate FiO2 12/10/22 20:45 36.6 94 20 97/54 (68) 98 Room Air Capillary Refill : General Appearance: No Apparent Distress, WD/WN, Anxious, Chronically ill, Thin HEENT: PERRL/EOMI, Pharynx Normal, Other (left eye directed down and to left during right eye covered) Neck: Full Range of Motion, Normal Inspection, Non Tender, Supple, Carotid Bruit Respiratory: Chest Non Tender, Lungs Clear, Normal Breath Sounds, No Accessory Muscle Use, No Respiratory Distress Cardiovascular: Regular Rate, Rhythm, No Edema, No Gallop, No JVD, No Murmur, Normal Peripheral Pulses Gastrointestinal: Normal Bowel Sounds, No Organomegaly, No Pulsatile Mass, Non Tender, Soft Back: Normal Inspection, No CVA Tenderness, No Vertebral Tenderness Extremity: Normal Capillary Refill, Normal Inspection, Normal Range of Motion, Non Tender, No Calf Tenderness, No Pedal Edema Neurologic/Psychiatric: Alert, Oriented x3, Abnormal payroll machine operator II-XII, Abnormal Gait, Depressed Affect, Motor Weakness (left sided 4/5) Skin: Normal Color, Warm/Dry Lymphatic: No Adenopathy Results/Procedures Lab Patient resulted labs reviewed. FIM Transfers Therapy Code Descriptions/Definitions Functional Floral Measure: 0=Not Assessed/NA 4=Minimal Assistance 1=Total Assistance 5=Supervision or Setup 2=Maximal Assistance 6=Modified Floral 3=Moderate Assistance 7=Complete IndependenceSCALE: Activities may be completed with or without assistive devices. 7-Lvmjkjgovi-cgggwks completes the activity by him/herself with no assistance from a helper. 5-Set-up or Clean-up Assistance-helper sets up or cleans up; patient completes activity. [place]andrews assists only prior to or following the activity. 4-Supervision or Touching Assistance-helper provides verbal cues and/or touching/steadying and/or contact guard assistance as patient completes activity. Assistance may be provided throughout the activity or intermittently. 3-Partial/Moderate Assistance-helper does LESS THAN HALF the effort. [place]andrews lifts, holds or supports trunk or limbs, but provides less than half the effort. 2-Substantial/Maximal Assistance-helper does MORE THAN HALF the effort. [place]andrews lifts or holds trunk or limbs and provides more than half the effort. 1-Yuczypyfc-kuohzp does ALL the effort. Patient does none of the effort to complete the activity. Or, the assistance of 2 or more helpers is required for the patient to complete the activity. If activity was not attempted, code reason: 7-Patient Refused. 9-Not Applicable-not attempted and the patient did not perform the activity before the current illness, exacerbation or injury. 10-Not Attempted due to Environmental Limitations-(lack of equipment, weather restraints, etc.). 88-Not Attempted due to Medical Conditions or Safety Concerns. Roll Left to Right (QC): 6 Sit to Lying (QC): 6 Sit to Stand (QC): 6 Chair/Gnh-up-Haxth Xfer(QC): 6 Car Transfer (QC): 5 Gait Training Does the Patient Walk?: Yes Walk 10 feet (QC): 5 Walk 50 ft with 2 Turns(QC): 5 Walk 150 ft (QC): 5 Walking 10ft/uneven surface-QC: 5 Gait Assistive Device: FWW Wheelchair Training Does the Pt Use a Wheelchair?: No Wheel 50 ft with 2 turns (QC): 9 Wheel 150 ft (QC): 9 Stair Training 1 Step (curb) (QC): 3 (min (A) with FWW, 2" curb) 4 Steps (QC): 5 12 Steps (QC): 3 (min (B) with (B) rails and v.c. for depth perception issues) Balance Picking up an Object (QC): 5 ADL-Treatment Eating (QC): 6 Oral Hygiene (QC): 4 (CGA in standing.) Shower/Bathe Self (QC): 4 (Supervision) Upper Body Dressing (QC): 3 (Min A with lifevest. Set up with shirt.) Lower Body Dressing (QC): 3 (Min A due to fatigue) On/Off Footwear (QC): 5 Toileting Hygiene (QC): 4 Toilet Transfer (QC): 4 Assessment/Plan Assessment and Plan Assess & Plan/Chief Complaint Assessment: Right thalamic stroke with left sided weakness and vision impairment CHF EF 10% h/o Meth use Weight loss Plan: Cardiology consult CHF protocol meds Monitor closely 12/08/2022: Appreciate Dr Sotelo 12/09/2022: Monitor closely 12/10/2022: Supportive care (1) CVA (cerebral vascular accident) CASSANDRA RIOS DO Dec 10, 2022 12:41
--- NOTE | 2022-12-10 12:52 | Physical Therapy Daily Note ---
PT Daily Note-Current Subjective Pt in room in bed sleeping upon arrival. pt willing for therapy. pt stated he was a bit more dizzier this session with more concentration of the New AD Quad cane training. Pain Section J - Health Conditions 1. Rarely or not at all 2. Occasionally 3. Frequently 4. Almost constantly 8. Unable to answer Pain Effect on Sleep: 1 Pain Interference with Therapy: 1 Pain Interference w/Day-to-Day: 1 Mental Status Patient Orientation: Person, Place, Time, Situation Transfers SCALE: Activities may be completed with or without assistive devices. 4-Pnumyoxtol-jhgxast completes the activity by him/herself with no assistance from a helper. 5-Set-up or Clean-up Assistance-helper sets up or cleans up; patient completes activity. Douglas assists only prior to or following the activity. 4-Supervision or Touching Assistance-helper provides verbal cues and/or touching/steadying and/or contact guard assistance as patient completes ac tivity. Assistance may be provided throughout the activity or intermittently. 3-Partial/Moderate Assistance-helper does LESS THAN HALF the effort. Douglas lifts, holds or supports trunk or limbs, but provides less than half the effort. 2-Substantial/Maximal Assistance-helper does MORE THAN HALF the effort. Douglas lifts or holds trunk or limbs and provides more than half the effort. 0-Falgngbyl-lxlnfa does ALL the effort. Patient does none of the effort to complete the activity. Or, the assistance of 2 or more helpers is required for the patient to complete the activity. If activity was not attempted, code reason: 7-Patient Refused. 9-Not Applicable-not attempted and the patient did not perform the activity before the current illness, exacerbation or injury. 10-Not Attempted due to Environmental Limitations-(lack of equipment, weather restraints, etc.). 88-Not Attempted due to Medical Conditions or Safety Concerns. Weight Bearing Weight Bearing/Tolerated Weight Bearing/Tolerated Gait Training Gait Assistive Device: Walker Standard Exercises NuStep Minutes: 5 NuStep Workload: 1 Treatments Pt ambulated 500ft with 2 rest breaks and RW with SBA and no LOB this day. Pt did require 3-4 min rest breaks before being able to ambulate again secondary to fatigue. pt is able to also ambulate 50ft with Quad cane and 10%VC for correct sequence. pt did require CGA. a pt has slight LOB at times. pt does better with less VC and less distractions to give his brain time to process new information. Pt was able to preform Nu-Step at level 1 for 5 mins before fatiguing. pt has been instructed to only use Quad cane with therapy and RW any other time for ambulation. Assessment Current Status: Good Progress PT Costume Seamstress Goals Costume Seamstress Goals PT Fpc Goals Time Frame: December 21, 2022 Roll Left & Right (QC): 6 Sit to Lying (QC): 6 Lying-Sitting on Side/Bed(QC): 6 Sit to Stand (QC): 6 Chair/Iow-rg-Svmgu Xfer(QC): 6 (with device) Toilet Transfer (QC): 6 (with device) Car Transfer (QC): 6 (device) Does the Patient Walk: Yes Walk 10 feet (QC): 6 (with device) Walk 50ft with 2 Turns (QC): 6 (with device) Walk 150 ft (QC): 6 (with device) Walking 10ft on Uneven Surface: 6 (with device) 1 Step (curb) (QC): 6 (with device) 4 Steps (QC): 6 (with railing) 12 Steps (QC): 6 (with railing) Picking up an Object (QC): 6 Does the Pt use WC or Scooter?: No Wheel 50 feet with 2 turns (QC: 9 Wheel 150 feet: 9 PT Plan Treatment/Plan Treatment Plan: Continue Plan of Care Treatment Plan: Functional Activity Yari, Functional Strength, Group Therapy, Gait, Safety, Therapeutic Exercise, Transfers Treatment Duration: December 21, 2022 Frequency: At least 5 of 7 days/Wk (IRF) Estimated Hrs Per Day: 1.5 hours per day Patient and/or Family Agrees t: Yes Time Time In: 1100 Time Out: 1200 DATE: Dec 10, 2022 Total Billed Treatment Time: 60 Total Billed Treatment 1 GT x 3 Ex Pt left in room in recliner with call light and all need met. Camille Thayer [employer]NAGEMENT [employer]ESSIONALS Dec 10, 2022 12:52
--- NOTE | 2022-12-10 13:21 | Progress Note - Cardiology ---
Cardiology SOAP Progress Note Subjective: Gen malaise Focal weakness as before No cp or palp or syncope No n/v/d No shortness of breath at rest Objective: I&O/Vital Signs 12/10/22 12/10/22 12/10/22 07:39 07:55 08:40 Temp 36.4 Pulse 72 Resp 16 B/P (MAP) 92/52 (65) 96/57 (70) Pulse Ox 98 99 O2 Delivery Room Air Room Air 12/10/22 00:00 Intake Total 856 ml Balance 856 ml Constitutional: AAO x 3, other (thin) Respiratory: No accessory muscle use, No respiratory distress; chest expansion is symmetric, chest is bilaterally symmetric, lungs clear to auscultation Cardiovascular: regular rate-rhythm; No JVD; S1 and S2 Gastrointestional: soft; No guarding; audible bowel sounds Extremities: no lower extremity edema bilateral Neurologic/Psychiatric: other (moves all extremities; eye patch in place to left eye; slight left sided facial droop; 4/5 left upper extremities) Skin: No rash on exposed areas, No ulcerations on exposed areas Results/Procedures: Labs Laboratory Tests 12/09/22 05:19 A/P: Assessment: Dilated cardiomyopathy - Echocardiogram of 11-29-[address] [facility] by [address] Barragan showed severe pulmonary chamber enlargement, severe LV systolic dysfunction, severely elevated pulmonary pressures 65-70 mmHg, LVEF 10% - Life Vest in place Elevated PASP on echo of 11-28-22 - PASP 65-70 mmHg - CTA of the chest at [facility] on 11-28-22 showed no acute PE; cardiomegaly; 2 to 3 solid pulmonary nodules - pulm nodules followed and managed by Dr Oscar Dave systolic CHF - clinically compensated Acute ischemic CVA on 11-30-[address] 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 Unable to increase because of low bp * Repeat echo * Monitor labs * Management of stroke is by JOANIE Harper MD FACP FAC CCDS Dec 10, 2022 13:21
[2022-12-10 20:45] VITALS: BP 97/54
[2022-12-10] MEDS: FLUoxetine HCL 20 MG (PROzac) CAP PO SCH (20:49)
--- NOTE | 2022-12-11 05:25 | PM&R Progress Note ---
Subjective HPI/CC On Admission Date Seen by Provider: Dec 11, 2022 Time Seen by Provider: 11:45 Subjective/Events-last exam 12/11/2022: No major issues No pain Improved ambulation Vision helped with patch 12/10/2022: No major issues Working with PT OT Eye patch helps No pain 12/09/2022: Doing well Monitor closely Partner at bedside along with his son BP stable 12/08/2022: No major issues Vision dysfunction improved with eye patch No pain Eating better Appreciate Dr Sotelo Review of Systems General: Fatigue, Malaise Objective Exam Vital Signs Vital Signs Date Time Temp Pulse Resp B/P (MAP) Pulse Ox O2 Delivery O2 Flow Rate FiO2 12/11/22 21:00 98 Room Air 12/11/22 19:45 36.7 88 18 101/63 (76) Capillary Refill : General Appearance: No Apparent Distress, WD/WN, Anxious, Chronically ill, Thin HEENT: PERRL/EOMI, Pharynx Normal, Other (left eye directed down and to left during right eye covered) Neck: Full Range of Motion, Normal Inspection, Non Tender, Supple, Carotid Bruit Respiratory: Chest Non Tender, Lungs Clear, Normal Breath Sounds, No Accessory Muscle Use, No Respiratory Distress Cardiovascular: Regular Rate, Rhythm, No Edema, No Gallop, No JVD, No Murmur, Normal Peripheral Pulses Gastrointestinal: Normal Bowel Sounds, No Organomegaly, No Pulsatile Mass, Non Tender, Soft Back: Normal Inspection, No CVA Tenderness, No Vertebral Tenderness Extremity: Normal Capillary Refill, Normal Inspection, Normal Range of Motion, Non Tender, No Calf Tenderness, No Pedal Edema Neurologic/Psychiatric: Alert, Oriented x3, Abnormal osd clerk II-XII, Abnormal Gait, Depressed Affect, Motor Weakness (left sided 4/5) Skin: Normal Color, Warm/Dry Lymphatic: No Adenopathy Results/Procedures Lab Patient resulted labs reviewed. FIM Transfers Therapy Code Descriptions/Definitions Functional [place] Measure: 0=Not Assessed/NA 4=Minimal Assistance 1=Total Assistance 5=Supervision or Setup 2=Maximal Assistance 6=Modified [place] 3=Moderate Assistance 7=Complete IndependenceSCALE: Activities may be completed with or without assistive devices. 9-Kzetatcaju-bzafkup completes the activity by him/herself with no assistance from a helper. 5-Set-up or Clean-up Assistance-helper sets up or cleans up; patient completes activity. [place] assists only prior to or following the activity. 4-Supervision or Touching Assistance-helper provides verbal cues and/or touching/steadying and/or contact guard assistance as patient completes activity. Assistance may be provided throughout the activity or intermittently. 3-Partial/Moderate Assistance-helper does LESS THAN HALF the effort. [place] lifts, holds or supports trunk or limbs, but provides less than half the effort. 2-Substantial/Maximal Assistance-helper does MORE THAN HALF the effort. [place] lifts or holds trunk or limbs and provides more than half the effort. 2-Olihupzzg-crmrst does ALL the effort. Patient does none of the effort to complete the activity. Or, the assistance of 2 or more helpers is required for the patient to complete the activity. If activity was not attempted, code reason: 7-Patient Refused. 9-Not Applicable-not attempted and the patient did not perform the activity before the current illness, exacerbation or injury. 10-Not Attempted due to Environmental Limitations-(lack of equipment, weather restraints, etc.). 88-Not Attempted due to Medical Conditions or Safety Concerns. Roll Left to Right (QC): 6 Sit to Lying (QC): 6 Sit to Stand (QC): 6 Chair/Hpd-kq-Lghvj Xfer(QC): 6 Car Transfer (QC): 5 Gait Training Does the Patient Walk?: Yes Walk 10 feet (QC): 5 Walk 50 ft with 2 Turns(QC): 5 Walk 150 ft (QC): 5 Walking 10ft/uneven surface-QC: 5 Gait Assistive Device: Walker Standard Wheelchair Training Does the Pt Use a Wheelchair?: No Wheel 50 ft with 2 turns (QC): 9 Wheel 150 ft (QC): 9 Stair Training 1 Step (curb) (QC): 3 (min (A) with FWW, 2" curb) 4 Steps (QC): 5 12 Steps (QC): 3 (min (B) with (B) rails and v.c. for depth perception issues) Balance Picking up an Object (QC): 5 ADL-Treatment Eating (QC): 6 Oral Hygiene (QC): 4 (CGA in standing.) Shower/Bathe Self (QC): 4 (Supervision) Upper Body Dressing (QC): 3 (Min A with lifevest. Set up with shirt.) Lower Body Dressing (QC): 3 (Min A due to fatigue) On/Off Footwear (QC): 5 Toileting Hygiene (QC): 4 Toilet Transfer (QC): 4 Assessment/Plan Assessment and Plan Assess & Plan/Chief Complaint Assessment: Right thalamic stroke with left sided weakness and vision impairment CHF EF 10% h/o Meth use Weight loss Plan: Cardiology consult CHF protocol meds Monitor closely 12/08/2022: Appreciate Dr Sotelo 12/09/2022: Monitor closely 12/10/2022: Supportive care 12/11/2022: Aggressive therapy (1) CVA (cerebral vascular accident) CASSANDRA RIOS DO Dec 11, 2022 05:25
[2022-12-11 06:05] LABS: CALCIUM 8.9 MG/DL (8.5-10.1); CREATININE SERUM 0.98 MG/DL (0.60-1.30); MAGNESIUM 1.8 MG/DL (1.6-2.4); POTASSIUM 4.5 MMOL/L (3.6-5.0)
--- NOTE | 2022-12-11 07:50 | Occupational Ther Daily Note ---
OT Current Status-Daily Note Subjective Pt agreeable to OT Tx. Pt slightly emotional throughout tx, especially when talking about his oldest daughter that he doesn't get to see, and hasn't seen in 16 years. OT provided therapeutic listening and communication throughout tx. Mental Status/Objective Attachments: Other-See Comments (LifeVest) ADL-Treatment Therapy Code Descriptions/Definitions Functional [place] Measure: 0=Not Assessed/NA 4=Minimal Assistance 1=Total Assistance 5=Supervision or Setup 2=Maximal Assistance 6=Modified [place] 3=Moderate Assistance 7=Complete IndependenceSCALE: Activities may be completed with or without assistive devices. 4-Ttdtaelsya-reexdxs completes the activity by him/herself with no assistance from a helper. 5-Set-up or Clean-up Assistance-helper sets up or cleans up; patient completes activity. [place] assists only prior to or following the activity. 4-Supervision or Touching Assistance-helper provides verbal cues and/or touching/steadying and/or contact guard assistance as patient completes activity. Assistance may be provided throughout the activity or intermittently. 3-Partial/Moderate Assistance-helper does LESS THAN HALF the effort. [place] lifts, holds or supports trunk or limbs, but provides less than half the effort. 2-Substantial/Maximal Assistance-helper does MORE THAN HALF the effort. [place] lifts or holds trunk or limbs and provides more than half the effort. 1-Tknkpimvx-ocqolc does ALL the effort. Patient does none of the effort to complete the activity. Or, the assistance of 2 or more helpers is required for the patient to complete the activity. If activity was not attempted, code reason: 7-Patient Refused. 9-Not Applicable-not attempted and the patient did not perform the activity before the current illness, exacerbation or injury. 10-Not Attempted due to Environmental Limitations-(lack of equipment, weather restraints, etc.). 88-Not Attempted due to Medical Conditions or Safety Concerns. Eating (QC): 6 Other Treatment Pt at EOB, finishing breakfast. Pt agreeable to OT Tx. Pt used FWW to perform functional mobility to therapy gym, SBA. OT tx focused on increasing BUE strength and activity tolerance, & fine motor strength and coordination. Pt completed arm bike, minimal to no resistance, 15 mins. Pt required reminders to take frequent rest breaks. Pt then removed beads from mod-heavy (green) resistance theraputty. Pt able to locate x20 beads without cues, dropping 2 on floor. OT educated pt on theraband HEP using moderate resistance (red) theraband. Pt able to complete 5/5 exercises, x10 reps each, BUE. Pt modified horizontal abduction due to "bad" R shoulder, completing this exercise only with LUE. Pt returned to his room, SBA using FWW, transferring to EOB. Post tx, pt at EOB, call light in reach and all needs met. Education OT Patient Education: Correct positioning, Energy conservation, Modified ADL techniques, Progress toward Goal/Update tx plan, Purpose of tx/functional activities, Rehab process Teaching Recipient: Patient Teaching Methods: Discussion Response to Teaching: Verbalize Understanding OT Short Term Goals Short Term Goals Time Frame: December 18, 2022 Shower/bathe self: 5 Upper body dressin Lower body dressin Putting on/taking off footwear: 5 OT Checkering Machine Adjuster Goals Checkering Machine Adjuster Goals Time Frame: January 01, 2023 Acute change in mental status: 0 Inattention: 0 Disorganized thinkin Altered level of consciousness: 0 Eating (QC): 6 Oral Hygiene (QC): 6 Toileting Hygiene (QC): 6 Shower/Bathe Self (QC): 6 Upper Body Dressing (QC): 6 Lower Body Dressing (QC): 6 On/Off Footwear (QC): 6 Additional Goals: 1-Demonstrate ADL Tasks, 2-Verbalize Understanding, 3-ImproveStrength/Yari 1=Demonstrate adherence to instructed precautions during ADL tasks. 2=Patient will verbalize/demonstrate understanding of assistive devices/modifications for ADL. 3=Patient will improve strength/tolerance for activity to enable patient to perform ADL's. OT Education/Plan Problem List/Assessment Assessment: Decreased Activ Tolerance, Decreased UE Strength, Impaired Funct Balance, Impaired I ADL's Discharge Recommendations Plan/Recommendations: Continue POC Treatment Plan/Plan of Care Patient would benefit from OT for education, treatment and training to promote independence in ADL's, mobility, safety and/or upper extremity function for ADL's. Plan of Care: ADL Retraining, Functional Mobility, Group Exercise/Act as Ind, UE Funct Exercise/Act, UE Neuromus Re-Ed/Coord, Visual/Perceptual Retrain, OTHER (Energy Conservation) Treatment Duration: January 01, 2023 Frequency: At least 5 of 7 days/Wk (IRF) Estimated Hrs Per Day: 1.5 hours per day Agreement: Yes Rehab Potential: Good Time Start Time: 07:30 Stop Time: 09:00 DATE: Dec 11, 2022 Total Time Billed (hr/min): 90 Billed Treatment Time 1, ADL (20'), EX 3 (40'), FA 2 (30') THOMAS WHITAKER OT Dec 11, 2022 07:50
[2022-12-11 08:49] VITALS: BP 113/58
[2022-12-11] MEDS: ASPIRIN E.C. 81 MG (ECOTRIN) TAB PO SCH (08:55)
[2022-12-11] MEDS: CLOPIDOGREL 75 MG (PLAVIX) TABLET PO SCH (08:55)
[2022-12-11] MEDS: SPIRONOLACTONE 25 MG (ALDACTONE) TAB PO SCH (08:55)
[2022-12-11] MEDS: SENNA W/DOCUSATE (SENOKOT S) TABLET PO SCH ×2 (08:56→20:59)
[2022-12-11] MEDS: DOCUSATE SODIUM 100 MG (COLACE) CAP PO SCH ×2 (08:56→20:59)
[2022-12-11] MEDS: ENOXAPARIN 40 MG/0.4 ML (LOVENOX) SYR SC SCH (08:56)
[2022-12-11] MEDS: lisINopril 5 MG (PRINIVIL) TABLET PO SCH ×2 (08:56→20:58)
[2022-12-11] MEDS: polyethylene glycoL POWDER 17 GM (MIRALAX) PACK PO SCH ×2 (09:04→20:59)
--- NOTE | 2022-12-11 09:21 | Progress Note - Cardiology ---
Cardiology SOAP Progress Note Objective: I&O/Vital Signs Constitutional: AAO x 3, other (thin) Respiratory: No accessory muscle use, No respiratory distress; chest expansion is symmetric, chest is bilaterally symmetric, lungs clear to auscultation Cardiovascular: regular rate-rhythm; No JVD; S1 and S2 Gastrointestional: soft; No guarding; audible bowel sounds Extremities: no lower extremity edema bilateral Neurologic/Psychiatric: other (moves all extremities; eye patch in place to left eye; slight left sided facial droop; 4/5 left upper extremities) Skin: No rash on exposed areas, No ulcerations on exposed areas Results/Procedures: Labs A/P: Assessment: Dilated cardiomyopathy - Echocardiogram of 11-29-22 at [facility] by Dr. Barragan showed severe pulmonary chamber enlargement, severe LV systolic dysfunction, severely elevated pulmonary pressures 65-70 mmHg, LVEF 10% - Life Vest in place - Echocardiogram of 12-10-22 showed LVEF 15-20% with severe diffuse hypokinesis. Mild to mod TR. PASP 50-55 mmHg Elevated PASP on echo of 11-28-22 - PASP 65-70 mmHg - CTA of the chest at [facility] on 11-28-22 showed no acute PE; cardiomegaly; 2 to 3 solid pulmonary nodules - pulm nodules followed and managed by Dr Moore - PASP 50-55 mmHg per echo of 12-10-22 Ac systolic CHF - clinically compensated Acute ischemic CVA on 11-30-22 at [facility] in [place], [place] - residual left sided upper extremity weakness, left sided facial droop and left sided dbl vision - treated with tPA - MRI of the brain at [facility] showed acute thalamic infarct H/O marijuana and methamphetamine abuse - continued cessation advised 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
--- NOTE | 2022-12-11 11:01 | Physical Therapy Daily Note ---
PT Daily Note-Current Subjective Pt in laying in bed upon arrival. pt willing for therapy. pt states he is more hungry everyday and feels like he is not getting enough during meals. pt is on a heart healthy diet. pt does experience more light headedness with new edu with quad cane and stairs. but with sitting rest he is able to recover. Pain Section J - Health Conditions 1. Rarely or not at all 2. Occasionally 3. Frequently 4. Almost constantly 8. Unable to answer Pain Effect on Sleep: 1 Pain Interference with Therapy: 1 Pain Interference w/Day-to-Day: 1 Mental Status Patient Orientation: Person, Place, Time, Situation Transfers SCALE: Activities may be completed with or without assistive devices. 1-Ufzpyytwxl-zzynpii completes the activity by him/herself with no assistance from a helper. 5-Set-up or Clean-up Assistance-helper sets up or cleans up; patient completes activity. [place] assists only prior to or following the activity. 4-Supervision or Touching Assistance-helper provides verbal cues and/or touching/steadying and/or contact guard assistance as patient completes activity. Assistance may be provided throughout the activity or intermittently. 3-Partial/Moderate Assistance-helper does LESS THAN HALF the effort. [place] lifts, holds or supports trunk or limbs, but provides less than half the effort. 2-Substantial/Maximal Assistance-helper does MORE THAN HALF the effort. [place] lifts or holds trunk or limbs and provides more than half the effort. 9-Xbidnunro-sftwfc does ALL the effort. Patient does none of the effort to complete the activity. Or, the assistance of 2 or more helpers is required for the patient to complete the activity. If activity was not attempted, code reason: 7-Patient Refused. 9-Not Applicable-not attempted and the patient did not perform the activity before the current illness, exacerbation or injury. 10-Not Attempted due to Environmental Limitations-(lack of equipment, weather restraints, etc.). 88-Not Attempted due to Medical Conditions or Safety Concerns. Weight Bearing Weight Bearing/Tolerated Weight Bearing/Tolerated Gait Training Walk 150 ft (QC): 5 Stair Training 1 Step (curb) (QC): 4 4 Steps (QC): 4 Exercises Standing: Dynamic Reaching Ex, Retro gait, Sit to Stand, Stepping over objects Assessment Current Status: Good Progress PT Neurology Hospitalist Goals Neurology Hospitalist Goals PT [facility] Goals Time Frame: December 21, 2022 Roll Left & Right (QC): 6 Sit to Lying (QC): 6 Lying-Sitting on Side/Bed(QC): 6 Sit to Stand (QC): 6 Chair/Csc-bd-Ezflu Xfer(QC): 6 (with device) Toilet Transfer (QC): 6 (with device) Car Transfer (QC): 6 (device) Does the Patient Walk: Yes Walk 10 feet (QC): 6 (with device) Walk 50ft with 2 Turns (QC): 6 (with device) Walk 150 ft (QC): 6 (with device) Walking 10ft on Uneven Surface: 6 (with device) 1 Step (curb) (QC): 6 (with device) 4 Steps (QC): 6 (with railing) 12 Steps (QC): 6 (with railing) Picking up an Object (QC): 6 Does the Pt use WC or Scooter?: No Wheel 50 feet with 2 turns (QC: 9 Wheel 150 feet: 9 PT Plan Treatment/Plan Treatment Plan: Continue Plan of Care Treatment Plan: Functional Activity Yari, Functional Strength, Group Therapy, Gait, Safety, Therapeutic Exercise, Transfers Treatment Duration: December 21, 2022 Frequency: At least 5 of 7 days/Wk (IRF) Estimated Hrs Per Day: 1.5 hours per day Patient and/or Family Agrees t: Yes Safety Risks/Education Patient Education: Gait Training Time Time In: 0930 Time Out: 1100 DATE: Dec 11, 2022 Total Billed Treatment Time: 90 Total Billed Treatment 1 GTx3 EX FAx2 pt left sitting EOB with Call light and all needs met. Camille Thayer HEAD ATHLETIC TRAINER Dec 11, 2022 11:01
[2022-12-11] MEDS ORDERED: DIPH25CA79 PO (15:17)
[2022-12-11 17:45] VITALS: BP 92/58
[2022-12-11 19:45] VITALS: BP_SYST 101; BP_SYST 138; BP_DIAS 63; BP_DIAS 77
[2022-12-11] MEDS: FLUoxetine HCL 20 MG (PROzac) CAP PO SCH (20:58)
--- NOTE | 2022-12-12 07:35 | PM&R Progress Note ---
Subjective HPI/CC On Admission Date Seen by Provider: Dec 12, 2022 Time Seen by Provider: 12:00 Subjective/Events-last exam 12/12/2022: Doing well Wants DC Wednesday Moving around well 12/11/2022: No major issues No pain Improved ambulation Vision helped with patch 12/10/2022: No major issues Working with PT OT Eye patch helps No pain 12/09/2022: Doing well Monitor closely Partner at bedside along with his son BP stable 12/08/2022: No major issues Vision dysfunction improved with eye patch No pain Eating better Appreciate Dr Sotelo Review of Systems General: Fatigue, Malaise Objective Exam Vital Signs Vital Signs Date Time Temp Pulse Resp B/P (MAP) Pulse Ox O2 Delivery O2 Flow Rate FiO2 12/12/22 20:40 36.8 79 16 105/69 (81) 98 Room Air Capillary Refill : General Appearance: No Apparent Distress, WD/WN, Anxious, Chronically ill, Thin HEENT: PERRL/EOMI, Pharynx Normal, Other (left eye directed down and to left during right eye covered) Neck: Full Range of Motion, Normal Inspection, Non Tender, Supple, Carotid Br uit Respiratory: Chest Non Tender, Lungs Clear, Normal Breath Sounds, No Accessory Muscle Use, No Respiratory Distress Cardiovascular: Regular Rate, Rhythm, No Edema, No Gallop, No JVD, No Murmur, Normal Peripheral Pulses Gastrointestinal: Normal Bowel Sounds, No Organomegaly, No Pulsatile Mass, Non Tender, Soft Back: Normal Inspection, No CVA Tenderness, No Vertebral Tenderness Extremity: Normal Capillary Refill, Normal Inspection, Normal Range of Motion, Non Tender, No Calf Tenderness, No Pedal Edema Neurologic/Psychiatric: Alert, Oriented x3, Abnormal rag sorter II-XII, Abnormal Gait, Depressed Affect, Motor Weakness (left sided 4/5) Skin: Normal Color, Warm/Dry Lymphatic: No Adenopathy Results/Procedures Lab Patient resulted labs reviewed. FIM Transfers Therapy Code Descriptions/Definitions Functional [place] Measure: 0=Not Assessed/NA 4=Minimal Assistance 1=Total Assistance 5=Supervision or Setup 2=Maximal Assistance 6=Modified [place] 3=Moderate Assistance 7=Complete IndependenceSCALE: Activities may be completed with or without assistive devices. 3-Tbmwzhzsxi-zwusoqm completes the activity by him/herself with no assistance from a helper. 5-Set-up or Clean-up Assistance-helper sets up or cleans up; patient completes activity. [place] assists only prior to or following the activity. 4-Supervision or Touching Assistance-helper provides verbal cues and/or touching/steadying and/or contact guard assistance as patient completes activity. Assistance may be provided throughout the activity or intermittently. 3-Partial/Moderate Assistance-helper does LESS THAN HALF the effort. [place] lifts, holds or supports trunk or limbs, but provides less than half the effort. 2-Substantial/Maximal Assistance-helper does MORE THAN HALF the effort. [place] lifts or holds trunk or limbs and provides more than half the effort. 1-Nfbwnbfua-pvsywc does ALL the effort. Patient does none of the effort to complete the activity. Or, the assistance of 2 or more helpers is required for the patient to complete the activity. If activity was not attempted, code reason: 7-Patient Refused. 9-Not Applicable-not attempted and the patient did not perform the activity before the current illness, exacerbation or injury. 10-Not Attempted due to Environmental Limitations-(lack of equipment, weather restraints, etc.). 88-Not Attempted due to Medical Conditions or Safety Concerns. Roll Left to Right (QC): 6 Sit to Lying (QC): 6 Sit to Stand (QC): 6 Chair/Jje-oy-Uoaad Xfer(QC): 6 Car Transfer (QC): 5 Gait Training Does the Patient Walk?: Yes Walk 10 feet (QC): 5 Walk 50 ft with 2 Turns(QC): 5 Walk 150 ft (QC): 5 Walking 10ft/uneven surface-QC: 5 Gait Assistive Device: Walker Standard Wheelchair Training Does the Pt Use a Wheelchair?: No Wheel 50 ft with 2 turns (QC): 9 Wheel 150 ft (QC): 9 Stair Training 1 Step (curb) (QC): 4 4 Steps (QC): 4 12 Steps (QC): 3 (min (B) with (B) rails and v.c. for depth perception issues) Balance Picking up an Object (QC): 5 ADL-Treatment Eating (QC): 6 Oral Hygiene (QC): 4 (CGA in standing.) Shower/Bathe Self (QC): 4 (Supervision) Upper Body Dressing (QC): 3 (Min A with lifevest. 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
[2022-12-12] MEDS: polyethylene glycoL POWDER 17 GM (MIRALAX) PACK PO SCH ×2 (08:28→20:34)
[2022-12-12] MEDS: CLOPIDOGREL 75 MG (PLAVIX) TABLET PO SCH (09:13)
[2022-12-12] MEDS: ASPIRIN E.C. 81 MG (ECOTRIN) TAB PO SCH (09:13)
[2022-12-12] MEDS: SENNA W/DOCUSATE (SENOKOT S) TABLET PO SCH ×2 (09:13→20:35)
[2022-12-12] MEDS: DOCUSATE SODIUM 100 MG (COLACE) CAP PO SCH ×2 (09:13→20:34)
[2022-12-12] MEDS: lisINopril 5 MG (PRINIVIL) TABLET PO SCH ×2 (09:13→20:35)
[2022-12-12] MEDS: ENOXAPARIN 40 MG/0.4 ML (LOVENOX) SYR SC SCH (09:13)
[2022-12-12] MEDS: SPIRONOLACTONE 25 MG (ALDACTONE) TAB PO SCH (09:13)
[2022-12-12 09:21] VITALS: BP 108/74
[2022-12-12 18:20] VITALS: BP 114/60
[2022-12-12] MEDS: FLUoxetine HCL 20 MG (PROzac) CAP PO SCH (20:35)
[2022-12-12 20:40] VITALS: BP 105/69
--- NOTE | 2022-12-13 06:32 | PM&R Progress Note ---
Subjective HPI/CC On Admission Date Seen by Provider: Dec 13, 2022 Time Seen by Provider: 12:30 Subjective/Events-last exam 12/13/2022: Much improved Wants to go home tomorrow 12/12/2022: Doing well Wants DC Wednesday Moving around well 12/11/2022: No major issues No pain Improved ambulation Vision helped with patch 12/10/2022: No major issues Working with PT OT Eye patch helps No pain 12/09/2022: Doing well Monitor closely Partner at bedside along with his son BP stable 12/08/2022: No major issues Vision dysfunction improved with eye patch No pain Eating better Appreciate Dr Sotelo Review of Systems General: Fatigue, Malaise Objective Exam Vital Signs Vital Signs Date Time Temp Pulse Resp B/P (MAP) Pulse Ox O2 Delivery O2 Flow Rate FiO2 12/13/22 09:03 Room Air 12/13/22 09:00 36.8 89 18 99/60 (73) 97 Capillary Refill : General Appearance: No Apparent Distress, WD/WN, Anxious, Chronically ill, Thin HEENT: PERRL/EOMI, Pharynx Normal, Other (left eye directed down and to left during right eye covered) Neck: Full Range of Motion, Normal Inspection, Non Tender, Supple, Carotid Bruit Respiratory: Chest Non Tender, Lungs Clear, Normal Breath Sounds, No Accessory Muscle Use, No Respiratory Distress Cardiovascular: Regular Rate, Rhythm, No Edema, No Gallop, No JVD, No Murmur, Normal Peripheral Pulses Gastrointestinal: Normal Bowel Sounds, No Organomegaly, No Pulsatile Mass, Non Tender, Soft Back: Normal Inspection, No CVA Tenderness, No Vertebral Tenderness Extremity: Normal Capillary Refill, Normal Inspection, Normal Range of Motion, Non Tender, No Calf Tenderness, No Pedal Edema Neurologic/Psychiatric: Alert, Oriented x3, Abnormal yard assistant II-XII, Abnormal Gait, Depressed Affect, Motor Weakness (left sided 4/5) Skin: Normal Color, Warm/Dry Lymphatic: No Adenopathy Results/Procedures Lab Patient resulted labs reviewed. FIM Transfers Therapy Code Descriptions/Definitions Functional [place] Measure: 0=Not Assessed/NA 4=Minimal Assistance 1=Total Assistance 5=Supervision or Setup 2=Maximal Assistance 6=Modified [place] 3=Moderate Assistance 7=Complete IndependenceSCALE: Activities may be completed with or without assistive devices. 1-Ktnnmxezhn-hliwfjp completes the activity by him/herself with no assistance from a helper. 5-Set-up or Clean-up Assistance-helper sets up or cleans up; patient completes activity. [place] assists only prior to or following the activity. 4-Supervision or Touching Assistance-helper provides verbal cues and/or touching/steadying and/or contact guard assistance as patient completes activity. Assistance may be provided throughout the activity or intermittently. 3-Partial/Moderate Assistance-helper does LESS THAN HALF the effort. [place] lifts, holds or supports trunk or limbs, but provides less than half the effort. 2-Substantial/Maximal Assistance-helper does MORE THAN HALF the effort. [place] lifts or holds trunk or limbs and provides more than half the effort. 5-Zdhcjtqtu-qerqxt does ALL the effort. Patient does none of the effort to complete the activity. Or, the assistance of 2 or more helpers is required for the patient to complete the activity. If activity was not attempted, code reason: 7-Patient Refused. 9-Not Applicable-not attempted and the patient did not perform the activity before the current illness, exacerbation or injury. 10-Not Attempted due to Environmental Limitations-(lack of equipment, weather restraints, etc.). 88-Not Attempted due to Medical Conditions or Safety Concerns. Roll Left to Right (QC): 6 Sit to Lying (QC): 6 Sit to Stand (QC): 6 Chair/Pve-qc-Aqrzm Xfer(QC): 6 Car Transfer (QC): 5 Gait Training Does the Patient Walk?: Yes Walk 10 feet (QC): 5 Walk 50 ft with 2 Turns(QC): 5 Walk 150 ft (QC): 5 Walking 10ft/uneven surface-QC: 5 Gait Assistive Device: Walker Standard Wheelchair Training Does the Pt Use a Wheelchair?: No Wheel 50 ft with 2 turns (QC): 9 Wheel 150 ft (QC): 9 Stair Training 1 Step (curb) (QC): 4 4 Steps (QC): 4 12 Steps (QC): 3 (min (B) with (B) rails and v.c. for depth perception issues) Balance Picking up an Object (QC): 5 ADL-Treatment Eating (QC): 6 Oral Hygiene (QC): 4 (CGA in standing.) Shower/Bathe Self (QC): 4 (Supervision) Upper Body Dressing (QC): 3 (Min A with lifevest. 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
[2022-12-13] MEDS: SPIRONOLACTONE 25 MG (ALDACTONE) TAB PO SCH (08:43)
[2022-12-13] MEDS: DOCUSATE SODIUM 100 MG (COLACE) CAP PO SCH ×2 (08:43→20:32)
[2022-12-13] MEDS: lisINopril 5 MG (PRINIVIL) TABLET PO SCH ×2 (08:43→20:33)
[2022-12-13] MEDS: ASPIRIN E.C. 81 MG (ECOTRIN) TAB PO SCH (08:43)
[2022-12-13] MEDS: CLOPIDOGREL 75 MG (PLAVIX) TABLET PO SCH (08:43)
[2022-12-13] MEDS: ENOXAPARIN 40 MG/0.4 ML (LOVENOX) SYR SC SCH (08:43)
[2022-12-13] MEDS: SENNA W/DOCUSATE (SENOKOT S) TABLET PO SCH ×2 (08:44→20:32)
[2022-12-13] MEDS: polyethylene glycoL POWDER 17 GM (MIRALAX) PACK PO SCH ×2 (08:44→20:32)
[2022-12-13 09:00] VITALS: BP 99/60
--- NOTE | 2022-12-13 10:41 | Progress Note - Cardiology ---
Cardiology SOAP Progress Note Subjective: No cp or palp or syncope No shortness of breath at rest Gen weakness and focal weakness as before No n/v/d No swelling Objective: I&O/Vital Signs 12/13/22 12/13/22 09:00 09:03 Temp 36.8 Pulse 89 Resp 18 B/P (MAP) 99/60 (73) Pulse Ox 97 O2 Delivery Room Air Room Air 12/13/22 00:00 Intake Total 1100 ml Balance 1100 ml Constitutional: AAO x 3, other (thin) Respiratory: No accessory muscle use, No respiratory distress; chest expansion is symmetric, chest is bilaterally symmetric, lungs clear to auscultation Cardiovascular: regular rate-rhythm; No JVD; S1 and S2 Gastrointestional: soft; No guarding; audible bowel sounds Extremities: no lower extremity edema bilateral Neurologic/Psychiatric: other (moves all extremities; eye patch in place to left eye; slight left sided facial droop; 4/5 left upper extremities) Skin: No rash on exposed areas, No ulcerations on exposed areas Results/Procedures: Labs Laboratory Tests 12/11/22 05:10 A/P: Assessment: Dilated cardiomyopathy - Echocardiogram of 11-29-22 at [facility] by Dr. Barragan showed severe pulmonary chamber enlargement, severe LV systolic dysfunction, severely elevated pulmonary pressures 65-70 mmHg, LVEF 10% - Life Vest in place - Echocardiogram of 12-10-22 showed LVEF 15-20% with severe diffuse hypokinesis. Mild to mod TR. PASP 50-55 mmHg Elevated PASP on echo of 11-28-22 - PASP 65-70 mmHg - CTA of the chest at [facility] on 11-28-22 showed no acute PE; cardiomegaly; 2 to 3 solid pulmonary nodules - pulm nodules followed and managed by Dr Moore - PASP 50-55 mmHg per echo of 12-10-22 Ac systolic CHF - clinically compensated Acute ischemic CVA on 11-30-[address] 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
[2022-12-13 18:33] VITALS: BP 115/64
[2022-12-13 20:30] VITALS: BP 111/64
[2022-12-13] MEDS: FLUoxetine HCL 20 MG (PROzac) CAP PO SCH (20:32)
--- NOTE | 2022-12-14 05:04 | PM&R Progress Note ---
Subjective HPI/CC On Admission Date Seen by Provider: December 14, 2022 Time Seen by Provider: 08:30 Subjective/Events-last exam 12/14/2022: 12/13/2022: Much improved Wants to go home tomorrow 12/12/2022: Doing well Wants DC Wednesday Moving around well 12/11/2022: No major issues No pain Improved ambulation Vision helped with patch 12/10/2022: No major issues Working with PT OT Eye patch helps No pain 12/09/2022: Doing well Monitor closely Partner at bedside along with his son BP stable 12/08/2022: No major issues Vision dysfunction improved with eye patch No pain Eating better Appreciate Dr Sotelo Review of Systems General: Fatigue, Malaise Objective Exam Vital Signs Vital Signs Date Time Temp Pulse Resp B/P (MAP) Pulse Ox O2 Delivery O2 Flow Rate FiO2 12/14/22 07:36 36.4 95 16 132/70 (90) 99 Room Air Capillary Refill : General Appearance: No Apparent Distress, WD/WN, Anxious, Chronically ill, Thin HEENT: PERRL/EOMI, Pharynx Normal, Other (left eye directed down and to left during right eye covered) Neck: Full Range of Motion, Normal Inspection, Non Tender, Supple, Carotid Bruit Respiratory: Chest Non Tender, Lungs Clear, Normal Breath Sounds, No Accessory Muscle Use, No Respiratory Distress Cardiovascular: Regular Rate, Rhythm, No Edema, No Gallop, No JVD, No Murmur, Normal Peripheral Pulses Gastrointestinal: Normal Bowel Sounds, No Organomegaly, No Pulsatile Mass, Non Tender, Soft Back: Normal Inspection, No CVA Tenderness, No Vertebral Tenderness Extremity: Normal Capillary Refill, Normal Inspection, Normal Range of Motion, Non Tender, No Calf Tenderness, No Pedal Edema Neurologic/Psychiatric: Alert, Oriented x3, Abnormal electrical lineman II-XII, Abnormal Gait, Depressed Affect, Motor Weakness (left sided 4/5) Skin: Normal Color, Warm/Dry Lymphatic: No Adenopathy Results/Procedures Lab Patient resulted labs reviewed. FIM Transfers Therapy Code Descriptions/Definitions Functional [place] Measure: 0=Not Assessed/NA 4=Minimal Assistance 1=Total Assistance 5=Supervision or Setup 2=Maximal Assistance 6=Modified [place] 3=Moderate Assistance 7=Complete IndependenceSCALE: Activities may be completed with or without assistive devices. 0-Krtyfcuzbv-dbhckez completes the activity by him/herself with no assistance from a helper. 5-Set-up or Clean-up Assistance-helper sets up or cleans up; patient completes activity. [place] assists only prior to or following the activity. 4-Supervision or Touching Assistance-helper provides verbal cues and/or touch ing/steadying and/or contact guard assistance as patient completes activity. Assistance may be provided throughout the activity or intermittently. 3-Partial/Moderate Assistance-helper does LESS THAN HALF the effort. [place] lifts, holds or supports trunk or limbs, but provides less than half the effort. 2-Substantial/Maximal Assistance-helper does MORE THAN HALF the effort. [place] lifts or holds trunk or limbs and provides more than half the effort. 2-Jtmosokux-odhgto does ALL the effort. Patient does none of the effort to complete the activity. Or, the assistance of 2 or more helpers is required for the patient to complete the activity. If activity was not attempted, code reason: 7-Patient Refused. 9-Not Applicable-not attempted and the patient did not perform the activity before the current illness, exacerbation or injury. 10-Not Attempted due to Environmental Limitations-(lack of equipment, weather restraints, etc.). 88-Not Attempted due to Medical Conditions or Safety Concerns. Roll Left to Right (QC): 6 Sit to Lying (QC): 6 Sit to Stand (QC): 6 Chair/Qlm-sn-Btvyj Xfer(QC): 6 Car Transfer (QC): 5 Gait Training Does the Patient Walk?: Yes Walk 10 feet (QC): 5 Walk 50 ft with 2 Turns(QC): 5 Walk 150 ft (QC): 5 Walking 10ft/uneven surface-QC: 5 Gait Assistive Device: Walker Standard Wheelchair Training Does the Pt Use a Wheelchair?: No Wheel 50 ft with 2 turns (QC): 9 Wheel 150 ft (QC): 9 Stair Training 1 Step (curb) (QC): 4 4 Steps (QC): 4 12 Steps (QC): 3 (min (B) with (B) rails and v.c. for depth perception issues) Balance Picking up an Object (QC): 5 ADL-Treatment Eating (QC): 6 Oral Hygiene (QC): 4 (CGA in standing.) Shower/Bathe Self (QC): 4 (Supervision) Upper Body Dressing (QC): 3 (Min A with lifevest. 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
[2022-12-14 07:36] VITALS: BP 132/70
--- NOTE | 2022-12-14 09:02 | Occupational Ther Daily Note ---
OT Current Status-Daily Note Subjective Pt agreeable to OT Tx, states he would like to discharge today. Pt reports no concerns with his ability to complete self care tasks at home Mental Status/Objective Patient Orientation: Normal For Age Attachments: Other-See Comments (lifevest) ADL-Treatment Therapy Code Descriptions/Definitions Functional [place] Measure: 0=Not Assessed/NA 4=Minimal Assistance 1=Total Assistance 5=Supervision or Setup 2=Maximal Assistance 6=Modified [place] 3=Moderate Assistance 7=Complete IndependenceSCALE: Activities may be completed with or without assistive devices. 5-Bcwjfguyka-nmreidq completes the activity by him/herself with no assistance from a helper. 5-Set-up or Clean-up Assistance-helper sets up or cleans up; patient completes activity. [place] assists only prior to or following the activity. 4-Supervision or Touching Assistance-helper provides verbal cues and/or touching/steadying and/or contact guard assistance as patient completes activity. Assistance may be provided throughout the activity or intermittently. 3-Partial/Moderate Assistance-helper does LESS THAN HALF the effort. [place] lifts, holds or supports trunk or limbs, but provides less than half the effort. 2-Substantial/Maximal Assistance-helper does MORE THAN HALF the effort. [place] lifts or holds trunk or limbs and provides more than half the effort. 0-Tdyuobixp-txugey does ALL the effort. Patient does none of the effort to complete the activity. Or, the assistance of 2 or more helpers is required for the patient to complete the activity. If activity was not attempted, code reason: 7-Patient Refused. 9-Not Applicable-not attempted and the patient did not perform the activity before the current illness, exacerbation or injury. 10-Not Attempted due to Environmental Limitations-(lack of equipment, weather restraints, etc.). 88-Not Attempted due to Medical Conditions or Safety Concerns. Eating (QC): 6 Oral Hygiene (QC): 6 Shower/Bathe Self (QC): 4 (Supervision per pt report) Upper Body Dressing (QC): 6 (overhead shirt.) Lower Body Dressing (QC): 6 On/Off Footwear: 6 Toileting Hygiene (QC): 6 Toilet Transfer (QC): 6 Other Treatment Pt in bed, agreeable to OT Tx. Pt transferred supine to sit EOB independently. Pt declined showering, stating he took one recently with his SO. Pt reports he was able to complete shower himself, SO present just in case he needed something Pt demo'd ability to don shoes, shirt and pants independently, no safety concerns noted. Pt used FWW to perform functional mobility to therapy gym. OT tx focused on visual scanning, sequencing, problem solving, dynamic standing balance and standing tolerance. Pt stood at white board, completing magnetic puzzle. Pt required seated rest break every 5-10 mins, but able to attend to task for 45 mins total. Pt c/o increased dizziness when focusing on task after 45 mins due to visual perceptual difficulties. OT and pt discussed various strategies, including taking a break from tasks when he needs to, he verbalized understanding. When pt was not looking at puzzle, dizziness improved. Pt used FWW to return to his room, IND completed toileting independently. Pt used FWW to transfer to EOB and supine, IND. OT educated pt on energy conservation techniques throughout tx and provided pt printed educational material on energy conservation. Post tx, pt in bed, call light in reach and all needs met. Education OT Patient Education: Correct positioning, Energy conservation, Modified ADL techniques, Progress toward Goal/Update tx plan, Purpose of tx/functional activities, Rehab process Teaching Recipient: Patient Teaching Methods: Discussion Response to Teaching: Verbalize Understanding BIMS CAM BIMS Expression of Ideas and Wants: Without Difficulty Understanding Verbal Content: Understands Brief Interview/Mental Status: Yes IRF ALEXANDRE BIMS: IRF ALEXANDRE BIMS Response (Comments) Value Repitition of Three Words Three 3 Recalls Socks Yes, No Cue Required 2 Recalls Blue Yes, No Cue Required 2 Recalls Bed Yes, No Cue Required 2 Year Correct 3 Month Accurate Within 5 Days 2 Day Correct 1 Total 15 Should Staff Asses. Mental St.: No CAM Mental Status Change/Baseline: 0 Inattention: 0 Disorganized thinkin Altered level of consciousness: 0 OT Short Term Goals Short Term Goals Time Frame: December 18, 2022 Shower/bathe self: 5 Upper body dressin Lower body dressin Putting on/taking off footwear: 5 OT Heel Seat Filler Goals [facility]ci Goals Time Frame: January 01, 2023 Acute change in mental status: 0 Inattention: 0 Disorganized thinkin Altered level of consciousness: 0 Eating (QC): 6 (met) Oral Hygiene (QC): 6 (met) Toileting Hygiene (QC): 6 (met) Shower/Bathe Self (QC): 6 (not met) Upper Body Dressing (QC): 6 (met) Lower Body Dressing (QC): 6 (met) On/Off Footwear (QC): 6 (met) Additional Goals: 1-Demonstrate ADL Tasks, 2-Verbalize Understanding, 3- ImproveStrength/Y[place] 1=Demonstrate adherence to instructed precautions during ADL tasks. 2=Patient will verbalize/demonstrate understanding of assistive devices/modifi cations for ADL. 3=Patient will improve strength/tolerance for activity to enable patient to perform ADL's. OT Education/Plan Problem List/Assessment Assessment: Decreased Activ Tolerance, Impaired I ADL's, Visual-Perceptual Deficit Discharge Recommendations Plan/Recommendations: Continue POC Treatment Plan/Plan of Care Patient would benefit from OT for education, treatment and training to promote independence in ADL's, mobility, safety and/or upper extremity function for ADL's. Plan of Care: ADL Retraining, Functional Mobility, Group Exercise/Act as Ind, UE Funct Exercise/Act, UE Neuromus Re-Ed/Coord, Visual/Perceptual Retrain, OTHER (Energy Conservation) Treatment Duration: January 01, 2023 Frequency: At least 5 of 7 days/Wk (IRF) Estimated Hrs Per Day: 1.5 hours per day Agreement: Yes Rehab Potential: Good Time Start Time: 07:30 Stop Time: 09:00 DATE: December 14, 2022 Total Time Billed (hr/min): 90 Billed Treatment Time 1, ADL 2 (30'), FA 4 (60') THOMAS WHITAKER OT December 14, 2022 09:02
[2022-12-14] MEDS: CLOPIDOGREL 75 MG (PLAVIX) TABLET PO SCH (09:15)
[2022-12-14] MEDS: ASPIRIN E.C. 81 MG (ECOTRIN) TAB PO SCH (09:15)
[2022-12-14] MEDS: lisINopril 5 MG (PRINIVIL) TABLET PO SCH (09:15)
[2022-12-14] MEDS: SPIRONOLACTONE 25 MG (ALDACTONE) TAB PO SCH (09:16)
[2022-12-14] MEDS: ENOXAPARIN 40 MG/0.4 ML (LOVENOX) SYR SC SCH (09:16)
[2022-12-14] MEDS ORDERED: FLUO20CA48 PO (09:25)
[2022-12-14] MEDS ORDERED: SPIR25TA5 PO (09:25)
[2022-12-14] MEDS ORDERED: CLOP75TA28 PO (09:25)
[2022-12-14] MEDS ORDERED: LISI5TAB20 PO (09:25)
[2022-12-14] MEDS ORDERED: ASPI-1238 PO (09:25)
[2022-12-14] MEDS ORDERED: ATOR40TA PO (09:25)
[2022-12-14] MEDS ORDERED: CARV6.252 PO (09:25)
--- NOTE | 2022-12-14 09:26 | D/C HH Face to Face Order ---
D/C Face to Face Orders Reconcile Patient Problems Problems Reviewed?: Yes Instructions for Patient Via [employer], Patient Instructions/FollowUp: PCP [facility] Physician to follow Patient: [facility] Discharge Diet for Home: No Restrictions Patient Problems: CVA CHF Patient Data-Allergies,Ht & Wt Patient Allergies: Coded Allergies: morphine (Verified Adverse Reaction, Unknown, 12/07/22) "I get real loopy" Home Health Need/Face to Face Date of Face to Face: December 14, 2022 Clinical Findings: Generalized weakness and fatigue, Instability, Muscle weakness I have seen Pt ajvz-wy-qjhh: Yes Discharged To: Home Diagnosis/Conditions: CVA CHF Patient is Homebound due to: [place] fall risk due to instabilty, Muscle weakness Homebound Status Due to the above stated illness, injury or surgical procedure (medical condition or diagnosis) and associated clinical findings, the patient is homebound because of his/her inability to leave home except with aid of a supportive device and/or person AND leaving the home requires a considerable and taxing effort or is medically contraindicated. Pt req the following assistanc: Walker Home Health Nursing Orders Home Health Services Order: Nursing Services, [employer]elry [employer]ater-Evaluate & Treat, Physical Therapy-Evaluate & Treat Home Health Infusion Therapy Line Start Date: Dec 10, 2022 Certify Stmt I certify that this patient is under my care and that I, a nurse practitioner or a physician; a higher level teaching assistant working with me, had a face to face encounter that - meets the physician face to face encounter requirements with this patient as dated. CASSANDRA RIOS DO December 14, 2022 09:26
--- NOTE | 2022-12-14 09:27 | Discharge Summary ---
Diagnosis/Chief Complaint Date of Admission Dec 07, 2022 at 12:54 Date of Discharge Discharge Date: December 14, 2022 Discharge Diagnosis CVA CHF EF 10% Meth use Discharge Summary Discharge Physical Examination Allergies: Coded Allergies: morphine (Verified Adverse Reaction, Unknown, 12/07/22) "I get real loopy" Vitals & I&Os Vital Signs Date Time Temp Pulse Resp B/P (MAP) Pulse Ox O2 Delivery O2 Flow Rate FiO2 12/14/22 10:51 36.4 95 16 99 Room Air General Appearance: Alert, Oriented X3, Cooperative Respiratory: Clear to Auscultation Cardiovascular: Regular Rate Psych/Mental Status: Mental Status NL Hospital Course Was the Problem List Reviewed?: Yes Standard course after he was admitted from [facility] following a CVA with vision loss and CHF with EF 10%. Cardiology consulted. Aggressive therapy was maintained with good results back to baseline. Overall he did well and had no decompensation and was DC on HH in improved condition. Labs (last 24 hrs) Laboratory Tests 12/08/22 04:57: White Blood Count 8.5, Red Blood Count 5.18, Hemoglobin 15.4, Hematocrit 44, Mean Corpuscular Volume 84, Mean Corpuscular Hemoglobin 30, Mean Corpuscular Hemoglobin Concent 35, Red Cell Distribution Width 13.1, Platelet Count 393, Mean Platelet Volume 10.0, Immature Granulocyte % (Auto) 0, Neutrophils (%) (Auto) 44, Lymphocytes (%) (Auto) 43, Monocytes (%) (Auto) 8, Eosinophils (%) (Auto) 4, Basophils (%) (Auto) 1, Neutrophils # (Auto) 3.7, Lymphocytes # (Auto) 3.7, Monocytes # (Auto) 0.6, Eosinophils # (Auto) 0.4H, Basophils # (Auto) 0.1, Immature Granulocyte # (Auto) 0.0, Sodium Level 136, Potassium Level 4.8, Chloride Level 103, Carbon Dioxide Level 22, Anion Gap 11, Blood Urea Nitrogen 21H, Creatinine 1.00, Estimat Glomerular Filtration Rate 101, BUN/Creatinine Ratio 21, Glucose Level 95, Calcium Level 9.3, Corrected Calcium 9.8, Magnesium Level 1.9, Total Bilirubin 0.5, Aspartate Amino Transf (AST/SGOT) 48H, Alanine Aminotransferase (ALT/SGPT) 81H, Alkaline Phosphatase 103, Total Protein 5.9L, Albumin 3.4 12/09/22 05:19: Sodium Level 137, Potassium Level 4.6, Chloride Level 105, Carbon Dioxide Level 21, Anion Gap 11, Blood Urea Nitrogen 18, Creatinine 0.89, Estimat Glomerular Filtration Rate 115, BUN/Creatinine Ratio 20, Glucose Level 92, Calcium Level 9.5, Magnesium Level 1.9 12/11/22 05:10: Sodium Level 137, Potassium Level 4.5, Chloride Level 107, Carbon Dioxide Level 24, Anion Gap 6, Blood Urea Nitrogen 14, Creatinine 0.98, Estimat Glomerular Filtration Rate 103, BUN/Creatinine Ratio 14, Glucose Level 91, Calcium Level 8.9, Magnesium Level 1.8 Pending Labs Laboratory Tests 12/08/22 04:57: White Blood Count 8.5, Red Blood Count 5.18, Hemoglobin 15.4, Hematocrit 44, Mean Corpuscular Volume 84, Mean Corpuscular Hemoglobin 30, Mean Corpuscular Hemoglobin Concent 35, Red Cell Distribution Width 13.1, Platelet Count 393, Mean Platelet Volume 10.0, Immature Granulocyte % (Auto) 0, Neutrophils (%) (Auto) 44, Lymphocytes (%) (Auto) 43, Monocytes (%) (Auto) 8, Eosinophils (%) (Auto) 4, Basophils (%) (Auto) 1, Neutrophils # (Auto) 3.7, Lymphocytes # (Auto) 3.7, Monocytes # (Auto) 0.6, Eosinophils # (Auto) 0.4, Basophils # (Auto) 0.1, Immature Granulocyte # (Auto) 0.0, Sodium Level 136, Potassium Level 4.8, Chloride Level 103, Carbon Dioxide Level 22, Anion Gap 11, Blood Urea Nitrogen 21, Creatinine 1.00, Estimat Glomerular Filtration Rate 101, BUN/Creatinine Ratio 21, Glucose Level 95, Calcium Level 9.3, Corrected Calcium 9.8, Magnesium Level 1.9, Total Bilirubin 0.5, Aspartate Amino Transf (AST/SGOT) 48, Alanine Aminotransferase (ALT/SGPT) 81, Alkaline Phosphatase 103, Total Protein 5.9, Albumin 3.4 12/09/22 05:19: Sodium Level 137, Potassium Level 4.6, Chloride Level 105, Carbon Dioxide Level 21, Anion Gap 11, Blood Urea Nitrogen 18, Creatinine 0.89, Estimat Glomerular Filtration Rate 115, BUN/Creatinine Ratio 20, Glucose Level 92, Calcium Level 9.5, Magnesium Level 1.9 12/11/22 05:10: Sodium Level 137, Potassium Level 4.5, Chloride Level 107, Carbon Dioxide Level 24, Anion Gap 6, Blood Urea Nitrogen 14, Creatinine 0.98, Estimat Glomerular Filtration Rate 103, BUN/Creatinine Ratio 14, Glucose Level 91, Calcium Level 8.9, Magnesium Level 1.8 Discharge Home Medications: Active Scripts Active Fluoxetine HCl 20 Mg Capsule 20 Mg PO HS Aspirin EC (Aspirin) 81 Mg Tablet.dr 81 Mg PO DAILY Spironolactone 25 Mg Tablet 50 Mg PO DAILY Lisinopril 5 Mg Tablet 2.5 Mg PO BID Carvedilol 6.25 Mg Tablet 6.25 Mg PO BID WITH MEALS Lipitor (Atorvastatin Calcium) 40 Mg Tablet 40 Mg PO HS Clopidogrel (Clopidogrel Bisulfate) 75 Mg Tablet 75 Mg PO DAILY Reported Benadryl (Diphenhydramine HCl) 25 Mg Capsule 25-50 Mg PO Q8H PRN Instructions to patient/family Please see electronic discharge instructions given to patient. Diagnosis/Problems Diagnosis/Problems (1) CVA (cerebral vascular accident) CASSANDRA RIOS DO December 14, 2022 09:27
[2022-12-14] MEDS: DOCUSATE SODIUM 100 MG (COLACE) CAP PO SCH (09:33)
[2022-12-14] MEDS: polyethylene glycoL POWDER 17 GM (MIRALAX) PACK PO SCH (09:33)
[2022-12-14] MEDS: SENNA W/DOCUSATE (SENOKOT S) TABLET PO SCH (09:33)
--- NOTE | 2022-12-14 10:27 | Physical Therapy Daily Note ---
PT Daily Note-Current Pain Section J - Health Conditions 1. Rarely or not at all 2. Occasionally 3. Frequently 4. Almost constantly 8. Unable to answer Pain Effect on Sleep: 1 Pain Interference with Therapy: 1 Pain Interference w/Day-to-Day: 1 Mental Status Patient Orientation: Person, Place, Time, Situation Transfers SCALE: Activities may be completed with or without assistive devices. 0-Yriqyesasv-nqldlpe completes the activity by him/herself with no assistance from a helper. 5-Set-up or Clean-up Assistance-helper sets up or cleans up; patient completes activity. [place] assists only prior to or following the activity. 4-Supervision or Touching Assistance-helper provides verbal cues and/or touching/steadying and/or contact guard assistance as patient completes activity. Assistance may be provided throughout the activity or intermittently. 3-Partial/Moderate Assistance-helper does LESS THAN HALF the effort. [place] lifts, holds or supports trunk or limbs, but provides less than half the effort. 2-Substantial/Maximal Assistance-helper does MORE THAN HALF the effort. [place] lifts or holds trunk or limbs and provides more than half the effort. 2-Vhjsjxgcz-kxlxus does ALL the effort. Patient does none of the effort to complete the activity. Or, the assistance of 2 or more helpers is required for the patient to complete the activity. If activity was not attempted, code reason: 7-Patient Refused. 9-Not Applicable-not attempted and the patient did not perform the activity before the current illness, exacerbation or injury. 10-Not Attempted due to Environmental Limitations-(lack of equipment, weather restraints, etc.). 88-Not Attempted due to Medical Conditions or Safety Concerns. Roll Left & Right (QC): 6 Sit to Lying (QC): 6 Lying to Sitting/Side of Bed(Q: 6 Sit to Stand (QC): 6 Chair/Dux-gy-Wcsiw Xfer(QC): 6 Toilet Transfer (QC): 6 Car Transfer (QC): 6 Weight Bearing Weight Bearing/Tolerated Weight Bearing/Tolerated Gait Training Walk 10 feet (QC): 6 Walk 50 ft with 2 Turns(QC): 6 Walk 150 ft (QC): 6 Walking 10ft/uneven surface-QC: 6 Gait Persons Needed: 6 Gait Assistive Device: Walker Standard Wheelchair Training Does the Pt Use a Wheelchair?: No Stair Training 1 Step (curb) (QC): 6 4 Steps (QC): 6 12 Steps (QC): 6 Balance Picking up an Object (QC): 6 Treatments Pt was able to show all QC measures at 6 this day as pt is DC currently. Assessment Current Status: Good Progress PT Correction Goals Information Assurance Goals PT Correction Goals Time Frame: December 21, 2022 Roll Left & Right (QC): 6 Sit to Lying (QC): 6 Lying-Sitting on Side/Bed(QC): 6 Sit to Stand (QC): 6 Chair/Lit-wc-Zesnd Xfer(QC): 6 (with device) Toilet Transfer (QC): 6 (with device) Car Transfer (QC): 6 (device) Does the Patient Walk: Yes Walk 10 feet (QC): 6 (with device) Walk 50ft with 2 Turns (QC): 6 (with device) Walk 150 ft (QC): 6 (with device) Walking 10ft on Uneven Surface: 6 (with device) 1 Step (curb) (QC): 6 (with device) 4 Steps (QC): 6 (with railing) 12 Steps (QC): 6 (with railing) Picking up an Object (QC): 6 Does the Pt use WC or Scooter?: No Wheel 50 feet with 2 turns (QC: 9 Wheel 150 feet: 9 PT Plan Treatment/Plan Treatment Plan: Discontinue PT Treatment Plan: Functional Activity Yari, Functional Strength, Group Therapy, Gait, Safety, Therapeutic Exercise, Transfers Treatment Duration: December 21, 2022 Frequency: At least 5 of 7 days/Wk (IRF) Estimated Hrs Per Day: 1.5 hours per day Patient and/or Family Agrees t: Yes Time Time In: 1031 Time Out: 1046 DATE: December 14, 2022 Total Billed Treatment Time: 15 Total Billed Treatment 1 FA Camille Thayer TEXT TRANSCRIBER December 14, 2022 10:27
--- NOTE | 2022-12-14 14:23 | Therapy Team Discharge Summary ---
Therapy Discharge Summary Discharge Recommendations Date of Discharge December 14, 2022 at 10:45 Physical Therapy Roll Left to Right (QC): 6 Sit to Lying (QC): 6 Lying to Sitting/Side of Bed(Q: 6 Sit to Stand (QC): 6 Chair/Glc-mx-Krscs Xfer(QC): 6 Toilet Transfer (QC): 6 Car Transfer (QC): 6 Does the Patient Walk: Yes Mode of Locomotion: Walk Anticipated Mode of Locomotion: Walk Walk 10 feet (QC): 6 Walk 50 ft with 2 Turns(QC): 6 Walk 150 ft (QC): 6 Walking 10ft on uneven surface: 6 Distance: 200' Gait Assistive Device: Walker Standard Does the Pt Use a Wheelchair: No Wheel 50 ft with 2 turns (QC): 9 Wheel 150 ft (QC): 9 1 Step (curb) (QC): 6 4 Steps (QC): 6 12 Steps (QC): 6 Walking Assistive Device: Walker Balance Sitting Static: Good Balance Sitting Dynamic: Good Balance-Standing Static: Fair Picking up an Object (QC): 6 Occupational Therapy Pt admitted to [facility] s/p CVA. At [facility], pt was independent with ADLs and functional mobility, no AD. Upon initial evaluation, pt was independent with eating, required CGA oral care and toileting, min A Showering and LE dressing, and SBA with UE dressing and footwear. OT Tx focused on increasing BUE strength and activity tolerance, education on energy conservation, increasing safety and independence with ADLs, and visual perceptual retraining. Pt made good progress towards goals, attaining IND level with all ADLs except for showering (pt required supervision). Pt discharged home with SO support. OT recommendations include SC. Pt d/c from facility, d/c from OT at this time. Decreased Activ Tolerance, Impaired I ADL's, Visual-Perceptual Deficit Eating (QC): 6 Oral Hygiene (QC): 6 Shower/Bathe Self (QC): 4 (Supervision per pt report) Upper Body Dressing (QC): 6 (overhead shirt.) Lower Body Dressing (QC): 6 On/Off Footwear (QC): 6 Toileting Hygiene (QC): 6 PT School Psychologist Goals Residential Goals PT School Psychologist Goals Time Frame: December 21, 2022 Roll Left to Right (QC): 6 Sit to Lying (QC): 6 Lying-Sitting on Side/Bed(QC): 6 Sit to Stand (QC): 6 Chair/Tbj-lf-Fncej Xfer(QC): 6 (with device) Toilet/Commode Transfer (QC): 6 (with device) Car Transfer (QC): 6 (device) Does the Patient Walk: Yes Walk 10 feet (QC): 6 (with device) Walk 10ft-Uneven Surface(QC): 6 (with device) Walk 50ft with 2 Turns (QC): 6 (with device) Walk 150 ft (QC): 6 (with device) Does the Pt use WC or Scooter?: No Wheel 50 feet with 2 turns (QC: 9 Wheel 150 feet: 9 1 Step (curb) (QC): 6 (with device) 4 Steps (QC): 6 (with railing) 12 Steps (QC): 6 (with railing) Picking up an Object (QC): 6 OT School Psychologist Goals Residential Goals Time Frame: January 01, 2023 Acute change in mental status: 0 Inattention: 0 Disorganized thinkin Altered level of consciousness: 0 Eating (QC): 6 (met) Oral Hygiene (QC): 6 (met) Toileting Hygiene (QC): 6 (met) Shower/Bathe Self (QC): 6 (not met) Upper Body Dressing (QC): 6 (met) Lower Body Dressing (QC): 6 (met) On/Off Footwear (QC): 6 (met) Additional Goals: 1-Demonstrate ADL Tasks, 2-Verbalize Understanding, 3- ImproveStrength/Yari 1=Demonstrate adherence to instructed precautions during ADL tasks. 2=Patient will verbalize/demonstrate understanding of assistive devices/modif ications for ADL. 3=Patient will improve strength/tolerance for activity to enable patient to perform ADL's. THOMAS WHITAKER OT December 14, 2022 14:23
--- NOTE | 2022-12-16 14:08 | Therapy Team Discharge Summary ---
Therapy Discharge Summary Discharge Recommendations Date of Discharge December 14, 2022 at 10:45 Physical Therapy Patient admitted to ARU 12/07/22 after suffering a thalamic stroke on 11/28/22. Had visual deficits/disconjugate gaze which impaired motor coordination at [facility] - this will be addressed by behavioral optometry on outpatient basis. Also had EF of 10% and was utilizing a Life Vest. At the time of D/C, patient was (I) with all bed mobility and transfers using a FWW. He was able to walk extensive distances (over 300') before needing a rest break. He was able to as cend/descend 12 step (I) with (B) rails, and a curb with FWW (I). He was able to pick an object up off the floor without an AD. Roll Left to Right (QC): 6 Sit to Lying (QC): 6 Lying to Sitting/Side of Bed(Q: 6 Sit to Stand (QC): 6 Chair/Qip-ib-Lnwoi Xfer(QC): 6 Toilet Transfer (QC): 6 Car Transfer (QC): 6 Does the Patient Walk: Yes Mode of Locomotion: Walk Anticipated Mode of Locomotion: Walk Walk 10 feet (QC): 6 Walk 50 ft with 2 Turns(QC): 6 Walk 150 ft (QC): 6 Walking 10ft on uneven surface: 6 Distance: 200' Gait Assistive Device: Walker Standard Does the Pt Use a Wheelchair: No Wheel 50 ft with 2 turns (QC): 9 Wheel 150 ft (QC): 9 1 Step (curb) (QC): 6 4 Steps (QC): 6 12 Steps (QC): 6 Walking Assistive Device: Walker Balance Sitting Static: Good Balance Sitting Dynamic: Good Balance-Standing Static: Fair Picking up an Object (QC): 6 Occupational Therapy Decreased Activ Tolerance, Impaired I ADL's, Visual-Perceptual Deficit Eating (QC): 6 Oral Hygiene (QC): 6 Shower/Bathe Self (QC): 4 (Supervision per pt report) Upper Body Dressing (QC): 6 (overhead shirt.) Lower Body Dressing (QC): 6 On/Off Footwear (QC): 6 Toileting Hygiene (QC): 6 PT Alf Goals Alf Goals PT Alf Goals Time Frame: December 21, 2022 Roll Left to Right (QC): 6 Sit to Lying (QC): 6 Lying-Sitting on Side/Bed(QC): 6 Sit to Stand (QC): 6 Chair/Xwu-ed-Byevj Xfer(QC): 6 (with device) Toilet/Commode Transfer (QC): 6 (with device) Car Transfer (QC): 6 (device) Does the Patient Walk: Yes Walk 10 feet (QC): 6 (with device) Walk 10ft-Uneven Surface(QC): 6 (with device) Walk 50ft with 2 Turns (QC): 6 (with device) Walk 150 ft (QC): 6 (with device) Does the Pt use WC or Scooter?: No Wheel 50 feet with 2 turns (QC: 9 Wheel 150 feet: 9 1 Step (curb) (QC): 6 (with device) 4 Steps (QC): 6 (with railing) 12 Steps (QC): 6 (with railing) Picking up an Object (QC): 6 OT Director Of Quality Goals Director Of Quality Goals Time Frame: January 01, 2023 Acute change in mental status: 0 Inattention: 0 Disorganized thinkin Altered level of consciousness: 0 Eating (QC): 6 (met) Oral Hygiene (QC): 6 (met) Toileting Hygiene (QC): 6 (met) Shower/Bathe Self (QC): 6 (not met) Upper Body Dressing (QC): 6 (met) Lower Body Dressing (QC): 6 (met) On/Off Footwear (QC): 6 (met) Additional Goals: 1-Demonstrate ADL Tasks, 2-Verbalize Understanding, 3- ImproveStrength/Yari 1=Demonstrate adherence to instructed precautions during ADL tasks. 2=Patient will verbalize/demonstrate understanding of assistive devices/modifications for ADL. 3=Patient will improve strength/tolerance for activity to enable patient to perform ADL's. Antionette Fish PT December 16, 2022 14:08
== END 2022-12-14 10:45 | disposition home health service (06) | DRG 56 ==
PROVIDERS: ADMIT Internal Medicine; ATTEND Internal Medicine
DX: I69.354 Hemiplegia and hemiparesis following cerebral infarction affecting left non-dominant side (principal); I50.23 Acute on chronic systolic (congestive) heart failure; I42.0 Dilated cardiomyopathy; I69.392 Facial weakness following cerebral infarction; I69.398 Other sequelae of cerebral infarction; H53.2 Diplopia; F41.9 Anxiety disorder, unspecified; D57.3 Sickle-cell trait; F15.10 Other stimulant abuse, uncomplicated; F12.10 Cannabis abuse, uncomplicated; R63.4 Abnormal weight loss; R91.8 Other nonspecific abnormal finding of lung field; Z68.20 Body mass index [BMI] 20.0-20.9, adult; Z87.891 Personal history of nicotine dependence; Z88.5 Allergy status to narcotic agent; Z79.899 Other long term (current) drug therapy; Z79.82 Long term (current) use of aspirin; Z79.01 Long term (current) use of anticoagulants; Z79.02 Long term (current) use of antithrombotics/antiplatelets; Z90.81 Acquired absence of spleen; Z28.310 Unvaccinated for COVID-19
CPT/HCPCS: 36415; 80048; 80053; 83735; 85025; 93306

== ENCOUNTER 2022-12-23 21:24 | Inpatient (IN) | payer OTHER ==
[~2022-12-23] VITALS: Ht 172.7 cm; Wt 66.9 kg
[~2022-12-23 21:24] MED LIST: ACET325T38 PO; ASPI-1238 PO; ATOR40TA PO; ATOR40TA70 PO; CARV6.252 PO; CLOP75TA28 PO; DIPH25CA79 PO; EPTIFIBATIDE BOLUS 20 ML IV ONE; EPTIFIBATIDE DRIP 0 ML IV ONE; FLUO20CA48 PO; HEParin (CATH LAB) 2,000 ML IV ONE; HEParin 1000 UNIT/ML (10ML VIAL) FOR BOLUS ONE; LIDOCAINE 1% INJ 20 ML VIAL ONE; LISI2.5T13 PO; LISI5TAB20 PO; MIDAZOLAM 5 MG/5 ML (VERSED) VIAL ONE; NITRO DRIP 25000 MCG/D5W 0 ML IV ONE; NS IV 1000 ML 1,000 ML ONE; SPIR25TA5 PO; SPIR50TA4 PO; fentaNYL INJ 100 MCG/2 ML AMP ONE
--- NOTE | 2022-12-23 21:26 | Cardiology History & Physical ---
HPI-Cardiology Cardiology H&P Date of Admission 12/23/22 Primary Care Physician Admitting Physician: Attending Physician: Sivan Sotelo MD, MA [facility] [employer] Attending Physician jane [facility] Consulting Physician [facility] 37 yo who presented to the [place] ER with increasing shortness of breath and a vague discomfort in the chest, mild, tingling or pressure, w/o radiation, w/o aggravating or relieving factors, w/o associated symptoms other than shortness of breath. Review of Systems-Cardiology Review of Systems Constitutional: malaise; No weight loss, No weight gain Eyes: No vision change Ears/Nose/Throat: No ear discharge, No nasal drainage, No recent hearing loss Respiratory: As described under HPI Cardiovascular: As described under HPI Gastrointestinal: No diarrhea, No nausea, No vomiting Genitourinary: No dysuria, No hematuria, No urine frequency changes Skin: No rash, No ulcerations Psychiatric/Neurological: other (h/o stroke in mid November 2022 leading to L- sided weakness and double vision from which he has had considerable improvement) Hematologic: No bleeding abnormalities [id number]-Zhpubd Hx Past Medical History PMH As described under Assessment. Family Medical History Family Medical History: No reported family h/o CAD Allergies and Home Medications Allergies Coded Allergies: morphine (Verified Adverse Reaction, Unknown, 12/07/22) "I get real loopy" Patient Home Medication List Home Medication List Reviewed: Yes Aspirin (Aspirin EC) 81 Mg Tablet.dr, 81 MG PO DAILY Prescribed by: CASSANDRA RIOS on 12/14/22924 Atorvastatin Calcium (Lipitor) 40 Mg Tablet, 40 MG PO HS Prescribed by: CASSANDRA RIOS on 12/14/22924 Carvedilol (Carvedilol) 6.25 Mg Tablet, 6.25 MG PO BID WITH MEALS Prescribed by: CASSANDRA RIOS on 12/14/22924 Clopidogrel Bisulfate (Clopidogrel) 75 Mg Tablet, 75 MG PO DAILY Prescribed by: CASSANDRA RIOS on 12/14/22924 Diphenhydramine HCl (Benadryl) 25 Mg Capsule, 25-50 MG PO Q8H PRN for ALLERGY SYMPTOMS, (Reported) Entered as Reported by: SARAI DARBY on 12/11/22 1517 Fluoxetine HCl (Fluoxetine HCl) 20 Mg Capsule, 20 MG PO HS Prescribed by: CASSANDRA RIOS on 12/14/22924 Lisinopril (Lisinopril) 5 Mg Tablet, 2.5 MG PO BID Prescribed by: CASSANDRA RIOS on 12/14/22924 Spironolactone (Spironolactone) 25 Mg Tablet, 50 MG PO DAILY Prescribed by: CASSANDRA RIOS on 12/14/22924 Physical Exam-Cardiology Physical Exam Vital Signs/I&O Capillary Refill : Constitutional: AAO x 3, well-developed, well-nourished HEENT: EOMI, hearing is well preserved; No xanthelasmas are seen Neck: carotid pulses are 2 + bilaterally, with good upstrokes Cardiovascular: regular rate-rhythm, S1 and S2, systolic murmur (faint CATHLEEN at card base) Gastrointestinal: No tender; soft; No guarding, No rebound; audible bowel sounds Extremities: No clubbing, No cyanosis, No significant edema Neurologic/Psychiatric: oriented x 3, other (moves all limbs) Skin: normal color, warm/dry; No rash on exposed areas, No ulcerations on exposed areas A/P-Cardiology Assessment/Admission Diagnosis Ac cor syndrome / NSTEMI - Chronic anterolateral Q waves and chronic ST elevation, unchanged (index event in mid November 2021 at [place], [place]) Ac on systolic CHF Dilated cardiomyopathy - Echocardiogram of 11-29-[address] [facility] [address] Barragan showed severe pulmonary chamber enlargement, severe LV systolic dysfunction, severely elevated pulmonary pressures 65-70 mmHg, LVEF 10% - Life Vest in place - Echocardiogram of 12-10-22 showed LVEF 15-20% with severe diffuse hypokinesis. Mild to mod TR. PASP 50-55 mmHg - CTA of the chest at [facility] on 11-28-22 showed no acute PE; cardiomegaly; 2 to 3 solid pulmonary nodules - pulm nodules followed and managed by pcp CAD - Card cath and PCI on 12-23-32: LMCA ok; Long, prox and mid vessel occlusion of LAD treated with multiple overlapping stents (distal to prox: Orsiro 2.25 x 26, 2.25 x 33, 2.3 x 18); LCx nondominant and with mild plaques; RCA dominant and with mild plaques; LVEDP 15 mmHg Acute ischemic CVA on 11-30-22 at [facility] in [place], [place] - left-sided upper extremity weakness, left-sided facial droop and left-sided dbl vision - treated with tPA - MRI of the brain at [facility] showed acute thalamic infarct - L sided weakness has improved significantly in 2-3 weeks from the stroke H/O marijuana and methamphetamine abuse - continued cessation advised 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
[2022-12-23] MEDS ORDERED: TICAGRELOR 90 MG TABLET (BRILINTA) PO ONE (23:06)
[2022-12-23] MEDS ORDERED: ACETAMINOPHEN 325 MG TABLET PO PRN (23:45)
[2022-12-23] MEDS ORDERED: PATIENT MAY USE OWN MEDS, ALL PO SCH (23:45)
[2022-12-23] MEDS ORDERED: NS IV 1000 ML 1,000 ML IV SCH (23:45)
--- NOTE | 2022-12-24 00:03 | Cardiac Cath Report ---
CARDIAC CATHETERIZATION DATE OF PROCEDURE: 12-23-22 INDICATION: ACS HISTORY: The patient is a 37 year old male with dilated cardiomyopathy, ac on ch systolic CHF, chest discomfort, ACS (NSTEMI) and chronically abnormal ECG PROCEDURES PERFORMED: 1. Cor angio, 2. PCI of LAD; 3. LHC PROCEDURE DESCRIPTION: After informed consent and in the fasting state, left heart catheterization was performed through the R femoral artery utilizing a 6 Bulgarian system by percutaneous approach. JL4 for L cor angio; JR4 for R cor angio, pigtail for LHC. PCI to LAD (prox and mid vessel) Guide 6F JL4 Wire: Choice PT Graphix Balloon: 2.0 x 20 and 2.0 x 30 Stents: distal to prox - Orsiro 2.25 x 26, 2.25 x 33, 2.5 x 18 Pre-intervention: 99-100% stenosis; JUAN DANIEL 1 flow Post-intervention: 0% stenosis; JUAN DANIEL 3 flow HEMODYNAMICS: LVEDP 15 mmHg, no significant pressure gradient on pullback across the aortic valve CORONARY ANGIOGRAPHY: Left main coronary artery: Ok Left anterior descending coronary artery: Long 99-100% in prox and mid vessel with JUAN DANIEL antegrade flow. 0% residual following deployment of Orsiro stents (distal to prox: Orsiro 2.25 x 26, 2.25 x 33, 2.5 x 18) and JUAN DANIEL 3 flow Left circumflex coronary artery: Nondominant, mild plaques Right coronary artery: Dominant, mild plaques IMPRESSION: LMCA ok; Long, prox and mid vessel occlusion of LAD treated with multiple overl apping stents (distal to prox: Orsiro 2.25 x 26, 2.25 x 33, 2.3 x 18); LCx nondominant and with mild plaques; RCA dominant and with mild plaques; LVEDP 15 mmHg JOANIE ARENAS MD [facility] CCDS December 24, 2022 00:03
[2022-12-24] MEDS ORDERED: ATROPINE INJECTION 1 MG/10 ML SYR (ABBOTT) ONE (01:28)
[2022-12-24] MEDS ORDERED: CATHETER FLUSH 10 ML SYR IVP PRN (01:30)
[2022-12-24 03:53] LABS: BASOPHILS # (AUTO) 0.1 10^3/uL (0.0-0.1); BASOPHILS % (AUTO) 1 % (0-10); EOSINOPHILS # (AUTO) 0.4 10^3/uL (0.0-0.3); EOSINOPHILS % (AUTO) 6 % (0-10); HEMATOCRIT 38 % (40-54); HEMOGLOBIN 13.9 g/dL (13.3-17.7); LYMPHOCYTES # (AUTO) 2.4 10^3/uL (1.0-4.0); LYMPHOCYTES % (AUTO) 31 % (12-44); MEAN CORPUSCULAR HEMOGLOBIN 30 pg (25-34); MEAN CORPUSCULAR HGB CONC 36 g/dL (32-36); MEAN CORPUSCULAR VOLUME 82 fL (80-99); MEAN PLATELET VOLUME 10.3 fL (9.0-12.2); MONOCYTES # (AUTO) 0.8 10^3/uL (0.0-1.0); MONOCYTES % (AUTO) 10 % (0-12); NEUTROPHILS # (AUTO) 4.1 10^3/uL (1.8-7.8); NEUTROPHILS % (AUTO) 52 % (42-75); PLATELET COUNT 408 10^3/uL (130-400); WHITE BLOOD COUNT 7.8 10^3/uL (4.3-11.0)
[2022-12-24 04:13] LABS: ALBUMIN 3.6 GM/DL (3.2-4.5); POTASSIUM 4.1 MMOL/L (3.6-5.0)
[2022-12-24 04:14] LABS: CALCIUM 9.2 MG/DL (8.5-10.1)
[2022-12-24 04:16] LABS: TOTAL PROTEIN 6.3 GM/DL (6.4-8.2)
[2022-12-24 04:17] LABS: BILIRUBIN,TOTAL 0.5 MG/DL (0.1-1.0)
[2022-12-24 04:19] LABS: CREATININE SERUM 0.94 MG/DL (0.60-1.30)
[2022-12-24 04:22] LABS: MAGNESIUM 1.8 MG/DL (1.6-2.4)
[2022-12-24] MEDS ORDERED: NS IV 500 ML 500 ML IV PRN (04:30)
[2022-12-24] MEDS: MAGNESIUM 1 GM/100 ML IVPB 100 ML IV SCH (04:45)
[2022-12-24] MEDS: POTASSIUM CL 10MEQ/50ML IVPB 50 ML IV SCH (04:48)
[2022-12-24] MEDS: KCL 20 MEQ TAB (K-DUR) PO SCH (04:49)
[2022-12-24] MEDS ORDERED: MAGNESIUM 1 GM/100 ML IVPB 100 ML IV ONE (05:00)
[2022-12-24] MEDS ORDERED: CLOPIDOGREL 75 MG (PLAVIX) TABLET PO SCH (09:00)
--- NOTE | 2022-12-24 09:36 | Progress Note - Cardiology ---
Cardiology SOAP Progress Note Subjective: Lying in bed No c/o CP, SOB, palpitations No c/o groin discomfort Objective: I&O/Vital Signs 12/24/22 12/24/22 12/24/22 12/25/22 20:00 20:40 23:15 01:00 Temp 36.9 Pulse 84 87 63 Resp 13 7 B/P (MAP) 94/58 (70) 98/67 (77) Pulse Ox 100 99 98 O2 Delivery Nasal Cannula Room Air Room Air 12/25/22 12/25/22 04:00 07:34 Temp 36.5 Pulse 84 65 Resp 15 B/P (MAP) 94/54 (67) Pulse Ox 100 O2 Delivery Room Air 12/25/22 00:00 Intake Total 1350 ml Output Total 900 ml Balance 450 ml Side: right Condition: DP/PT pulses palpable Device Insertion Site: without hematoma Bruising: mild bruising Constitutional: AAO x 3, well-developed, well-nourished Cardiovascular: regular rate-rhythm, S1 and S2, systolic murmur (faint CATHLEEN at card base) Gastrointestional: No tender; soft; No guarding, No rebound; audible bowel sounds Extremities: No clubbing, No cyanosis, No significant edema Neurologic/Psychiatric: oriented x 3, other (moves all limbs) Skin: normal color, warm/dry; No rash on exposed areas, No ulcerations on exposed areas Results/Procedures: Labs Laboratory Tests 12/25/22 03:11: Sodium Level 135, Potassium Level 4.4, Chloride Level 105, Carbon Dioxide Level 19L, Anion Gap 11, Blood Urea Nitrogen 21H, Creatinine 1.11, Estimat Glomerular Filtration Rate 89, BUN/Creatinine Ratio 19, Glucose Level 90, Calcium Level 9.5, Magnesium Level 2.0 Microbiology 12/24/22 MRSA Screen - Final, Complete MRSA not isolated A/P: Assessment: Ac cor syndrome / NSTEMI - Chronic anterolateral Q waves and chronic ST elevation, unchanged (index event in mid November 2021 at [place], [place]) Ac on ch systolic CHF Dilated cardiomyopathy - Echocardiogram of 11-29-22 at [facility] by Dr. Barragan showed severe pulmonary chamber enlargement, severe LV systolic dysfunction, severely elevated pulmonary pressures 65-70 mmHg, LVEF 10% - Life Vest in place - Echocardiogram of 12-10-22 showed LVEF 15-20% with severe diffuse hypokinesis. Mild to mod TR. PASP 50-55 mmHg - CTA of the chest at [facility] on 11-28-22 showed no acute PE; cardiomegaly; 2 to 3 solid pulmonary nodules - pulm nodules followed and managed by pcp CAD - Card cath and PCI on 12-23-32: LMCA ok; Long, prox and mid vessel occlusion of LAD treated with multiple overlapping stents (distal to prox: Orsiro 2.25 x 26, 2.25 x 33, 2.3 x 18); LCx nondominant and with mild plaques; RCA dominant and with mild plaques; LVEDP 15 mmHg Acute ischemic CVA on 11-30-22 at [facility] in [place], [place] - left-sided upper extremity weakness, left-sided facial droop and left-sided d bl vision - treated with tPA - MRI of the brain at [facility] showed acute thalamic infarct - L sided weakness has improved significantly in 2-3 weeks from the stroke H/O marijuana and methamphetamine abuse - continued cessation advised 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
[2022-12-24] MEDS: FLUoxetine HCL 20 MG (PROzac) CAP PO SCH (09:44)
[2022-12-24] MEDS: SPIRONOLACTONE 25 MG (ALDACTONE) TAB PO SCH (09:44)
[2022-12-24] MEDS: FUROSEMIDE 20 MG (LASIX) TAB PO SCH (09:45)
[2022-12-24] MEDS: EMPAGLIFLOZIN 10 MG TABLET (JARDIANCE) PO SCH (09:45)
[2022-12-24] MEDS: lisINopril 5 MG (PRINIVIL) TABLET PO SCH (09:45)
[2022-12-24] MEDS: ASPIRIN 81 MG CHEW (CHILDREN'S ASA) PO SCH (09:45)
[2022-12-24] MEDS ORDERED: CLOP75TA28 PO (10:36)
[2022-12-24] MEDS ORDERED: LISI5TAB20 PO (10:36)
[2022-12-24] MEDS ORDERED: CARV6.252 PO (10:36)
[2022-12-24] MEDS ORDERED: ATOR40TA70 PO (10:36)
[2022-12-24] MEDS ORDERED: ASPI-1238 PO (10:36)
[2022-12-24] MEDS ORDERED: FLUO20CA48 PO (10:36)
[2022-12-24] MEDS ORDERED: SPIR25TA5 PO (10:36)
--- NOTE | 2022-12-24 14:11 | Consultation ---
HPI History of Present Illness: 37 yo M with extensive past medical history and recent acute CVA that presented with increasing shortness of breath. States that he really did not have much pain but more pressure and shortness of breath that did not improve with rest. In November patient had acute CVA and still has some residual weakness. Denies that he has had similar symptoms previously. States that he has had a splenectomy for a sickle cell disorder but denies having SCD. Patient does not follow with hematology at this time. Source: patient Exam Limitations: no limitations Date seen by provider: December 24, 2022 Time Seen by Provider: 09:30 [facility] Admitting Physician: Sivan Sotelo MD [facility] Attending Physician: Sivan Sotelo MD [facility] Consult Date of Admission December 23, 2022 at 23:58 Home Medications Home Medications Reviewed patient Home Medication Reconciliation performed by pharmacy medication reconciliations reproduction technician and/or nursing. Patients Allergies have been reviewed. Allergies Coded Allergies: morphine (Verified Adverse Reaction, Unknown, 12/07/22) "I get real loopy" [id number] Hx Patient Social History Smoking Status: Former Smoker Alcohol Use?: No Substance type: Marijuana Tobacco type used: Cigarettes Have you traveled recently?: No Immunizations Up To Date Influenza Vaccine Up-to-Date: No; Not Current Past Medical History Systolic CHF on lifevest Dilated Cardiomyopathy CAD CVA 11/2022 Sickle cell disorder Review of Systems (CHC) Constitutional: malaise EENTM: no symptoms reported; No mouth pain, No nose congestion, No throat pain Respiratory: No cough; dyspnea on exertion Cardiovascular: No chest pain; edema; No palpitations Gastrointestinal: no symptoms reported; No abdominal pain, No constipation, No diarrhea, No nausea, No vomiting Genitourinary: no symptoms reported Musculoskeletal: back pain Skin: no symptoms reported Psychiatric/Neurological: Anxiety Reviewed Test Results Reviewed Test Results Lab Laboratory Tests Test 12/24/22 03:33 Range/Units White Blood Count 7.8 4.3-11.0 10^3/uL Red Blood Count 4.68 4.30-5.52 10^6/uL Hemoglobin 13.9 13.3-17.7 g/dL Hematocrit 38 L 40-54 % Mean Corpuscular Volume 82 80-99 fL Mean Corpuscular Hemoglobin 30 25-34 pg Mean Corpuscular Hemoglobin Concent 36 32-36 g/dL Red Cell Distribution Width 13.0 10.0-14.5 % Platelet Count 408 H 130-400 10^3/uL Mean Platelet Volume 10.3 9.0-12.2 fL Immature Granulocyte % (Auto) 0 % Neutrophils (%) (Auto) 52 42-75 % Lymphocytes (%) (Auto) 31 12-44 % Monocytes (%) (Auto) 10 0-12 % Eosinophils (%) (Auto) 6 0-10 % Basophils (%) (Auto) 1 0-10 % Neutrophils # (Auto) 4.1 1.8-7.8 10^3/uL Lymphocytes # (Auto) 2.4 1.0-4.0 10^3/uL Monocytes # (Auto) 0.8 0.0-1.0 10^3/uL Eosinophils # (Auto) 0.4 H 0.0-0.3 10^3/uL Basophils # (Auto) 0.1 0.0-0.1 10^3/uL Immature Granulocyte # (Auto) 0.0 0.0-0.1 10^3/uL Sodium Level 134 L 135-145 MMOL/L Potassium Level 4.1 3.6-5.0 MMOL/L Chloride Level 106 98-107 MMOL/L Carbon Dioxide Level 18 L 21-32 MMOL/L Anion Gap 10 5-14 MMOL/L Blood Urea Nitrogen 20 H 7-18 MG/DL Creatinine 0.94 0.60-1.30 MG/DL Estimat Glomerular Filtration Rate 108 BUN/Creatinine Ratio 21 Glucose Level 92 70-105 MG/DL Calcium Level 9.2 8.5-10.1 MG/DL Corrected Calcium 9.5 8.5-10.1 MG/DL Magnesium Level 1.8 1.6-2.4 MG/DL Total Bilirubin 0.5 0.1-1.0 MG/DL Aspartate Amino Transf (AST/SGOT) 31 5-34 U/L Alanine Aminotransferase (ALT/SGPT) 55 0-55 U/L Alkaline Phosphatase 84 40-136 U/L Total Protein 6.3 L 6.4-8.2 GM/DL Albumin 3.6 3.2-4.5 GM/DL Triglycerides Level 66 <150 MG/DL Cholesterol Level 185 < 200 MG/DL LDL Cholesterol Direct 98 1-129 MG/DL VLDL Cholesterol 13 5-40 MG/DL HDL Cholesterol 65 H 40-60 MG/DL Thyroid Stimulating Hormone (TSH) 1.39 0.35-4.94 UIU/ML Physical Exam-(CHC) Physical Exam Vital Signs VS - Last 72 Hours, by Label 12/23/22 12/23/22 12/23/22 12/24/22 23:45 23:56 23:59 00:00 Temp 36.2 Pulse 71 73 72 Resp 12 B/P (MAP) 109/77 (88) 107/83 (91) Pulse Ox 100 100 O2 Delivery Nasal Cannula Nasal Cannula O2 Flow Rate 2.00 2.00 12/24/22 12/24/22 12/24/22 12/24/22 00:00 00:10 00:15 00:15 Pulse 72 71 72 Resp 32 13 B/P (MAP) 107/83 (91) 104/79 (87) 104/79 (86) Pulse Ox 100 100 100 O2 Delivery Nasal Cannula Nasal Cannula Nasal Cannula O2 Flow Rate 2.00 2.00 2.00 12/24/22 12/24/22 12/24/22 12/24/22 00:30 00:30 00:45 01:00 Pulse 80 73 Resp 16 16 16 B/P (MAP) 104/76 (85) 104/76 (84) 100/84 (89) Pulse Ox 100 100 100 O2 Delivery Nasal Cannula O2 Flow Rate 2.00 12/24/22 12/24/22 12/24/22 12/24/22 01:00 01:00 01:15 01:30 Pulse 80 63 70 B/P (MAP) 102/73 (83) 104/78 (86) 104/78 (84) Pulse Ox 100 100 O2 Delivery Nasal Cannula O2 Flow Rate 2.00 12/24/22 12/24/22 12/24/22 12/24/22 01:30 01:35 01:40 01:42 Pulse 66 69 70 85 Resp 16 B/P (MAP) 104/78 (84) 107/77 (82) 82/64 (71) 112/83 (92) Pulse Ox 100 100 100 12/24/22 12/24/22 12/24/22 12/24/22 01:45 01:50 01:55 02:00 Pulse 70 65 60 61 Resp 14 B/P (MAP) 103/73 (84) 103/69 (76) 108/72 (85) 107/71 (84) Pulse Ox 100 100 100 100 O2 Delivery Nasal Cannula O2 Flow Rate 1.00 12/24/22 12/24/22 12/24/22 12/24/22 02:15 02:30 02:45 03:00 Pulse 60 63 62 59 Resp 14 B/P (MAP) 108/75 (86) 112/76 (88) 100/67 (77) 97/69 (78) Pulse Ox 100 100 100 100 12/24/22 12/24/22 12/24/22 12/24/22 03:15 03:30 04:00 04:00 Temp 36.0 Pulse 60 59 70 70 Resp 12 B/P (MAP) 105/75 (84) 108/69 (82) 106/70 (82) 106/70 (82) Pulse Ox 100 100 99 99 O2 Delivery Room Air Room Air 12/24/22 12/24/22 12/24/22 12/24/22 04:04 04:23 04:30 05:00 Pulse 69 62 67 Resp 14 B/P (MAP) 96/59 (72) 83/53 (65) Pulse Ox 100 100 100 99 O2 Delivery Room Air 12/24/22 12/24/22 12/24/22 12/24/22 05:20 06:00 06:02 07:00 Pulse 64 76 B/P (MAP) 96/64 (75) 92/65 (74) Pulse Ox 100 O2 Delivery Room Air Room Air O2 Flow Rate 0.00 12/24/22 12/24/22 12/24/22 12/24/22 07:00 07:30 07:34 08:00 Temp 36.0 Pulse 76 77 B/P (MAP) 103/72 (82) 111/74 (86) Pulse Ox 99 100 99 O2 Delivery Room Air Room Air Room Air 12/24/22 12/24/22 12/24/22 12/24/22 09:00 10:00 12:00 12:59 Temp 36.4 Pulse 70 75 82 78 Resp 16 B/P (MAP) 103/66 (78) 94/68 (77) 93/69 (77) Pulse Ox 99 99 97 O2 Delivery Room Air Room Air Room Air Capillary Refill : Less Than 3 Seconds General Appearance: WD/WN, no apparent distress, thin HEENT: PERRL/EOMI Respiratory: chest non-tender, lungs clear, normal breath sounds, no respiratory distress, no accessory muscle use Cardiovascular: normal peripheral pulses, regular rate, rhythm, no murmur Gastrointestinal: normal bowel sounds, non tender, soft Extremities: normal range of motion, no calf tenderness, pedal edema (1+ pitting edema) Assessment/Plan Assessment/Plan (1) Acute coronary syndrome Status: Acute Assessment & Plan: - s/p cath with stent placement (2) Acute on chronic systolic (congestive) heart failure Status: Acute Assessment & Plan: - Life vest in place (3) Dilated cardiomyopathy Status: Chronic (4) CVA (cerebral vascular accident) Status: Chronic (5) Other sickle-cell disorders without crisis Status: Chronic Assessment & Plan: - Discussed with patient that he needs to get established with Hematology CALVIN HOLMAN MD December 24, 2022 14:11
--- NOTE | 2022-12-24 15:01 | Progress Note - Cardiology ---
Cardiology SOAP Progress Note Subjective: No cp or palp or syncope or shortness of breath No n/v/d No leg or groin discomfort Chronic, mild L-sided weakness No swelling No fever or chills Objective: I&O/Vital Signs 12/24/22 12/24/22 12/24/22 12/24/22 03:00 03:15 03:30 04:00 Pulse 59 60 59 70 Resp 14 B/P (MAP) 97/69 (78) 105/75 (84) 108/69 (82) 106/70 (82) Pulse Ox 100 100 100 99 O2 Delivery Room Air 12/24/22 12/24/22 12/24/22 12/24/22 04:00 04:04 04:23 04:30 Temp 36.0 Pulse 70 69 62 Resp 12 B/P (MAP) 106/70 (82) 96/59 (72) Pulse Ox 99 100 100 100 O2 Delivery Room Air Room Air 12/24/22 12/24/22 12/24/22 12/24/22 05:00 05:20 06:00 06:02 Pulse 67 64 Resp 14 B/P (MAP) 83/53 (65) 96/64 (75) 92/65 (74) Pulse Ox 99 100 O2 Delivery Room Air Room Air O2 Flow Rate 0.00 12/24/22 12/24/22 12/24/22 12/24/22 07:00 07:00 07:30 07:34 Temp 36.0 Pulse 76 76 B/P (MAP) 103/72 (82) Pulse Ox 99 100 O2 Delivery Room Air Room Air 12/24/22 12/24/22 12/24/22 12/24/22 08:00 09:00 10:00 12:00 Temp 36.4 Pulse 77 70 75 82 Resp 16 B/P (MAP) 111/74 (86) 103/66 (78) 94/68 (77) 93/69 (77) Pulse Ox 99 99 99 97 O2 Delivery Room Air Room Air Room Air Room Air 12/24/22 12:59 Pulse 78 Side: right Condition: DP/PT pulses palpable Device Insertion Site: without hematoma Bruising: mild bruising Constitutional: AAO x 3, well-developed, well-nourished Cardiovascular: regular rate-rhythm, S1 and S2, systolic murmur (faint CATHLEEN at card base) Gastrointestional: No tender; soft; No guarding, No rebound; audible bowel sounds Extremities: No clubbing, No cyanosis, No significant edema Neurologic/Psychiatric: oriented x 3, other (moves all limbs) Skin: normal color, warm/dry; No rash on exposed areas, No ulcerations on exposed areas Results/Procedures: Labs Laboratory Tests 12/24/22 03:33: White Blood Count 7.8, Red Blood Count 4.68, Hemoglobin 13.9, Hematocrit 38L, Mean Corpuscular Volume 82, Mean Corpuscular Hemoglobin 30, Mean Corpuscular Hemoglobin Concent 36, Red Cell Distribution Width 13.0, Platelet Count 408H, Mean Platelet Volume 10.3, Immature Granulocyte % (Auto) 0, Neutrophils (%) (Auto) 52, Lymphocytes (%) (Auto) 31, Monocytes (%) (Auto) 10, Eosinophils (%) (Auto) 6, Basophils (%) (Auto) 1, Neutrophils # (Auto) 4.1, Lymphocytes # (Auto) 2.4, Monocytes # (Auto) 0.8, Eosinophils # (Auto) 0.4H, Basophils # (Auto) 0.1, Immature Granulocyte # (Auto) 0.0, Sodium Level 134L, Potassium Level 4.1, Chloride Level 106, Carbon Dioxide Level 18L, Anion Gap 10, Blood Urea Nitrogen 20H, Creatinine 0.94, Estimat Glomerular Filtration Rate 108, BUN/Creatinine Ratio 21, Glucose Level 92, Calcium Level 9.2, Corrected Calcium 9.5, Magnesium Level 1.8, Total Bilirubin 0.5, Aspartate Amino Transf (AST/SGOT) 31, Alanine Aminotransferase (ALT/SGPT) 55, Alkaline Phosphatase 84, Total Protein 6.3L, Albumin 3.6, Triglycerides Level 66, Cholesterol Level 185, LDL Cholesterol Direct 98, VLDL Cholesterol 13, HDL Cholesterol 65H, Thyroid Stimulating Hormone (TSH) 1.39 Laboratory Tests 12/24/22 03:33 A/P: Assessment: Ac cor syndrome / NSTEMI on 12/23/22 - Chronic anterolateral Q waves and chronic ST elevation, unchanged (index event in mid November 2021 at [place], [place]) Ac on ch systolic CHF Dilated cardiomyopathy - Echocardiogram of 11-29-22 at [facility] by Dr. Barragan showed severe pulmonary chamber enlargement, severe LV systolic dysfunction, severely elevated pulmonary pressures 65-70 mmHg, LVEF 10% - Life Vest in place - Echocardiogram of 12-10-22 showed LVEF 15-20% with severe diffuse hypokinesis. Mild to mod TR. PASP 50-55 mmHg - CTA of the chest at [facility] on 11-28-22 showed no acute PE; cardiomegaly; 2 to 3 solid pulmonary nodules - pulm nodules followed and managed by pcp CAD - Card cath and PCI on 12-23-32: LMCA ok; Long, prox and mid vessel occlusion of LAD treated with multiple overlapping stents (distal to prox: Orsiro 2.25 x 26, 2.25 x 33, 2.3 x 18); LCx nondominant and with mild plaques; RCA dominant and with mild plaques; LVEDP 15 mmHg Acute ischemic CVA on 11-30-22 at [facility] in [place], [place] - left-sided upper extremity weakness, left-sided facial droop and left-sided dbl vision - treated with tPA - MRI of the brain at [facility] showed acute thalamic infarct - L sided weakness has improved significantly in 2-3 weeks from the stroke H/O marijuana and methamphetamine abuse - continued cessation advised 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
[2022-12-25 03:56] LABS: POTASSIUM 4.4 MMOL/L (3.6-5.0)
[2022-12-25 03:57] LABS: CALCIUM 9.5 MG/DL (8.5-10.1)
[2022-12-25 04:01] LABS: CREATININE SERUM 1.11 MG/DL (0.60-1.30)
[2022-12-25] MEDS: KCL 20 MEQ TAB (K-DUR) PO SCH (06:30)
[2022-12-25] MEDS: POTASSIUM CL 10MEQ/50ML IVPB 50 ML IV SCH (06:30)
[2022-12-25] MEDS: MAGNESIUM 1 GM/100 ML IVPB 100 ML IV SCH (06:30)
[2022-12-25] MEDS ORDERED: FURO20TA4 PO (07:43)
[2022-12-25] MEDS ORDERED: LISI5TAB20 PO (07:43)
[2022-12-25] MEDS ORDERED: EMPA10TA PO (07:43)
[2022-12-25] MEDS ORDERED: ASPI81TA64 PO (07:43)
[2022-12-25] MEDS ORDERED: SPIR25TA5 PO (07:43)
--- NOTE | 2022-12-25 07:44 | Discharge Inst-Cardiology ---
Discharge Inst-Cardiac Discharge Medications New Medications: Ticagrelor (Brilinta) 90 Mg Tablet 90 MG PO BID, #60 TAB 5 Refills Aspirin (Children's Aspirin) 81 Mg Tab.chew 81 MG PO DAILY, #90 TAB 3 Refills Empagliflozin (Jardiance) 10 Mg Tablet 10 MG PO DAILY, #30 TAB 5 Refills Furosemide (Furosemide) 20 Mg Tablet 20 MG PO DAILY, #30 TAB 5 Refills Lisinopril (Lisinopril) 5 Mg Tablet 5 MG PO DAILY, #30 TAB 5 Refills Spironolactone (Spironolactone) 25 Mg Tablet 25 MG PO DAILY, #30 TAB 5 Refills Continued Medications: Atorvastatin Calcium (Atorvastatin Calcium) 40 Mg Tablet 40 MG PO HS, TAB Carvedilol (Carvedilol) 6.25 Mg Tablet 6.25 MG PO BID WITH MEALS, TAB Diphenhydramine HCl (Benadryl) 25 Mg Capsule 25-50 MG PO Q8H PRN for ALLERGY SYMPTOMS, CAP Fluoxetine HCl (Fluoxetine HCl) 20 Mg Capsule 20 MG PO HS, CAP Discontinued Medications: Aspirin (Aspirin EC) 81 Mg Tablet.dr 81 MG PO DAILY, TAB Clopidogrel Bisulfate (Clopidogrel) 75 Mg Tablet 75 MG PO DAILY, TAB Lisinopril (Lisinopril) 5 Mg Tablet 2.5 MG PO BID, TAB TAKES OF A 5MG Spironolactone (Spironolactone) 25 Mg Tablet 50 MG PO DAILY, TAB TAKES 2 (25MG) TABS New, Converted or Re-Newed RX: Transmitted to Pharmacy Patient Instructions Patient Instructions: Please schedule follow up appointment to see Dr. Sotelo in 2 weeks DIEGO PAL December 25, 2022 07:44
[2022-12-25] MEDS ORDERED: TICA90TA PO (07:59)
--- NOTE | 2022-12-25 08:21 | Progress Note - Cardiology ---
Cardiology SOAP Progress Note Subjective: Sitting up in bed No c/o CP, SOB or palpitations Mild groin discomfort Objective: I&O/Vital Signs 12/24/22 12/24/22 12/25/22 12/25/22 20:40 23:15 01:00 04:00 Temp 36.5 Pulse 87 63 84 Resp 7 15 B/P (MAP) 98/67 (77) 94/54 (67) Pulse Ox 99 98 100 O2 Delivery Room Air Room Air Room Air 12/25/22 12/25/22 07:34 08:01 Temp 36.5 Pulse 65 85 Resp 16 B/P (MAP) 105/66 (79) Pulse Ox 99 O2 Delivery Room Air 12/25/22 00:00 Intake Total 1350 ml Output Total 900 ml Balance 450 ml Side: right Condition: DP/PT pulses palpable Device Insertion Site: without hematoma Bruising: mild bruising Constitutional: AAO x 3, well-developed, well-nourished Cardiovascular: regular rate-rhythm, S1 and S2, systolic murmur (faint CATHLEEN at card base) Gastrointestional: No tender; soft; No guarding, No rebound; audible bowel sounds Extremities: No clubbing, No cyanosis, No significant edema Neurologic/Psychiatric: oriented x 3, other (moves all limbs) Skin: normal color, warm/dry; No rash on exposed areas, No ulcerations on exposed areas Results/Procedures: Labs Laboratory Tests 12/25/22 03:11: Sodium Level 135, Potassium Level 4.4, Chloride Level 105, Carbon Dioxide Level 19L, Anion Gap 11, Blood Urea Nitrogen 21H, Creatinine 1.11, Estimat Glomerular Filtration Rate 89, BUN/Creatinine Ratio 19, Glucose Level 90, Calcium Level 9.5, Magnesium Level 2.0 Microbiology 12/24/22 MRSA Screen - Final, Complete MRSA not isolated Laboratory Tests 12/24/22 03:33 12/25/22 03:11 A/P: Assessment: Ac cor syndrome / NSTEMI on 12/23/22 - Chronic anterolateral Q waves and chronic ST elevation, unchanged (index event in mid November 2021 at [place], [place]) Ch systolic CHF - clinically compensated Dilated cardiomyopathy - Echocardiogram of 11-29-22 at [facility] by Dr. Barragan showed severe pulmonary chamber enlargement, severe LV systolic dysfunction, severely elevated pulmonary pressures 65-70 mmHg, LVEF 10% - Life Vest in place - Echocardiogram of 12-10-22 showed LVEF 15-20% with severe diffuse hypokinesis. Mild to mod TR. PASP 50-55 mmHg - CTA of the chest at [facility] on 11-28-22 showed no acute PE; cardiomegaly; 2 to 3 solid pulmonary nodules - pulm nodules followed and managed by pcp CAD - Card cath and PCI on 12-23-32: LMCA ok; Long, prox and mid vessel occlusion of LAD treated with multiple overlapping stents (distal to prox: Orsiro 2.25 x 26, 2.25 x 33, 2.3 x 18); LCx nondominant and with mild plaques; RCA dominant and with mild plaques; LVEDP 15 mmHg Acute ischemic CVA on 11-30-22 at [facility] in [place], [place] - left-sided upper extremity weakness, left-sided facial droop and left-sided dbl vision - treated with tPA - MRI of the brain at [facility] showed acute thalamic infarct - L sided weakness has improved significantly in 2-3 weeks from the stroke H/O marijuana and methamphetamine abuse - continued cessation advised 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
--- NOTE | 2022-12-25 08:42 | Progress Note - Cardiology ---
Cardiology SOAP Progress Note Subjective: No cp or palp or syncope No n/v/d No focal weakness No shortness of breath at rest Gen weakness and malaise, mild Denies leg or groin discomfort or discoloration Wishes to go home Objective: I&O/Vital Signs 12/24/22 12/25/22 12/25/22 12/25/22 23:15 01:00 04:00 07:34 Temp 36.5 Pulse 87 63 84 65 Resp 7 15 B/P (MAP) 98/67 (77) 94/54 (67) Pulse Ox 98 100 O2 Delivery Room Air Room Air 12/25/22 12/25/22 08:01 08:33 Temp 36.5 Pulse 85 Resp 16 B/P (MAP) 105/66 (79) Pulse Ox 99 100 O2 Delivery Room Air Room Air 12/25/22 00:00 Intake Total 1350 ml Output Total 900 ml Balance 450 ml Side: right Condition: DP/PT pulses palpable Device Insertion Site: without hematoma Bruising: mild bruising Constitutional: AAO x 3, well-developed, well-nourished Cardiovascular: regular rate-rhythm, S1 and S2, systolic murmur (faint CATHLEEN at card base) Gastrointestional: No tender; soft; No guarding, No rebound; audible bowel sounds Extremities: No clubbing, No cyanosis, No significant edema Neurologic/Psychiatric: oriented x 3, other (moves all limbs) Skin: normal color, warm/dry; No rash on exposed areas, No ulcerations on exposed areas Results/Procedures: Labs Laboratory Tests 12/25/22 03:11: Sodium Level 135, Potassium Level 4.4, Chloride Level 105, Carbon Dioxide Level 19L, Anion Gap 11, Blood Urea Nitrogen 21H, Creatinine 1.11, Estimat Glomerular Filtration Rate 89, BUN/Creatinine Ratio 19, Glucose Level 90, Calcium Level 9.5, Magnesium Level 2.0 Microbiology 12/24/22 MRSA Screen - Final, Complete MRSA not isolated Laboratory Tests 12/24/22 03:33 12/25/22 03:11 A/P: Assessment: Ac cor syndrome / NSTEMI on 12/23/22 - Chronic anterolateral Q waves and chronic ST elevation, unchanged (index event in mid November 2021 at [place], [place]) Ch systolic CHF - clinically compensated Dilated cardiomyopathy - Echocardiogram of 11-29-22 at [facility] by Dr. Barragan showed severe pulmonary chamber enlargement, severe LV systolic dysfunction, severely elevated pulmonary pressures 65-70 mmHg, LVEF 10% - Life Vest in place - Echocardiogram of 12-10-22 showed LVEF 15-20% with severe diffuse hypokinesis. Mild to mod TR. PASP 50-55 mmHg - CTA of the chest at [facility] on 11-28-22 showed no acute PE; cardiomegaly; 2 to 3 solid pulmonary nodules - pulm nodules followed and managed by pcp CAD - Card cath and PCI on 12-23-32: LMCA ok; Long, prox and mid vessel occlusion of LAD treated with multiple overlapping stents (distal to prox: Orsiro 2.25 x 26, 2.25 x 33, 2.3 x 18); LCx nondominant and with mild plaques; RCA dominant and with mild plaques; LVEDP 15 mmHg Acute ischemic CVA on 11-30-22 at [facility] in [place], [place] - left-sided upper extremity weakness, left-sided facial droop and left-sided dbl vision - treated with tPA - MRI of the brain at [facility] showed acute thalamic infarct - L sided weakness has improved significantly in 2-3 weeks from the stroke H/O marijuana and methamphetamine abuse - continued cessation advised 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
--- NOTE | 2022-12-25 08:53 | Cardiology Discharge Summary ---
Diagnosis/Chief Complaint Date of Admission December 23, 2022 at 23:58 Date of Discharge 12-25-22 Final/Discharge Diagnosis Ac cor syndrome / NSTEMI on 12/23/22 - Chronic anterolateral Q waves and chronic ST elevation, unchanged (index event in mid November 2021 at [place], [place]) Ch systolic CHF - clinically compensated Dilated cardiomyopathy - Echocardiogram of 11-29-22 at [facility] by Dr. Barragan showed severe pulmonary chamber enlargement, severe LV systolic dysfunction, severely elevated pulmonary pressures 65-70 mmHg, LVEF 10% - Life Vest in place - Echocardiogram of 12-10-22 showed LVEF 15-20% with severe diffuse hypokinesis. Mild to mod TR. PASP 50-55 mmHg - CTA of the chest at [facility] on 11-28-22 showed no acute PE; cardiomegaly; 2 to 3 solid pulmonary nodules - pulm nodules followed and managed by pcp CAD - Card cath and PCI on 12-23-32: LMCA ok; Long, prox and mid vessel occlusion of LAD treated with multiple overlapping stents (distal to prox: Orsiro 2.25 x 26, 2.25 x 33, 2.3 x 18); LCx nondominant and with mild plaques; RCA dominant and wi th mild plaques; LVEDP 15 mmHg Acute ischemic CVA on 11-30-22 at [facility] in [place], [place] - left-sided upper extremity weakness, left-sided facial droop and left-sided dbl vision - treated with tPA - MRI of the brain at [facility] showed acute thalamic infarct - L sided weakness has improved significantly in 2-3 weeks from the stroke H/O marijuana and methamphetamine abuse - continued cessation advised 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 For hospital course and condition at discharge, please see our progress note from today's date Discharge Summary Hospital Course Pending Labs Laboratory Tests 12/25/22 03:11: Sodium Level 135, Potassium Level 4.4, Chloride Level 105, Carbon Dioxide Level 19, Anion Gap 11, Blood Urea Nitrogen 21, Creatinine 1.11, Estimat Glomerular Filtration Rate 89, BUN/Creatinine Ratio 19, Glucose Level 90, Calcium Level 9.5, Magnesium Level 2.0 Discussion & Recommendations Home Medications Reviewed patient Home Medication Reconciliation performed by pharmacy medication reconciliations missile and missile checkout technician and/or nursing. Patients Allergies have been reviewed. Discharge Home Medications: Reviewed and agree with Discharge Medication list on patient's Discharge Instruction sheet JOANIE ARENAS MD FACP FAC CCDS December 25, 2022 08:53
[2022-12-25] MEDS ORDERED: TICAGRELOR 90 MG TABLET (BRILINTA) PO SCH (09:00)
[2022-12-25] MEDS: lisINopril 5 MG (PRINIVIL) TABLET PO SCH (09:32)
[2022-12-25] MEDS: FUROSEMIDE 20 MG (LASIX) TAB PO SCH (09:32)
[2022-12-25] MEDS: FLUoxetine HCL 20 MG (PROzac) CAP PO SCH (09:32)
[2022-12-25] MEDS: ASPIRIN 81 MG CHEW (CHILDREN'S ASA) PO SCH (09:33)
[2022-12-25] MEDS: EMPAGLIFLOZIN 10 MG TABLET (JARDIANCE) PO SCH (09:33)
[2022-12-25] MEDS: SPIRONOLACTONE 25 MG (ALDACTONE) TAB PO SCH (09:33)
[2022-12-25 13:18] VITALS: BP 112/68
== END 2022-12-25 13:20 | disposition home or self-care (01) | DRG 246 ==
LOC: CATH 21:24 → ICU 23:58 → CSD 12-24 12:00
PROVIDERS: ADMIT Internal Medicine Cardiovascular Disease; ATTEND Internal Medicine Cardiovascular Disease
PROC: 027036Z Dilation of Coronary Artery, One Artery with Three Drug-eluting Intraluminal Devices, Percutaneous Approach (ICD-10-PCS; principal; 2022-12-24)
PROC: 4A023N7 Measurement of Cardiac Sampling and Pressure, Left Heart, Percutaneous Approach (ICD-10-PCS; 2022-12-24)
PROC: B2111ZZ Fluoroscopy of Multiple Coronary Arteries using Low Osmolar Contrast (ICD-10-PCS; 2022-12-24)
DX: I21.4 Non-ST elevation (NSTEMI) myocardial infarction (principal); I50.23 Acute on chronic systolic (congestive) heart failure; I42.0 Dilated cardiomyopathy; I69.354 Hemiplegia and hemiparesis following cerebral infarction affecting left non-dominant side; I25.10 Atherosclerotic heart disease of native coronary artery without angina pectoris; I69.398 Other sequelae of cerebral infarction; H53.2 Diplopia; I69.392 Facial weakness following cerebral infarction; D57.1 Sickle-cell disease without crisis; F15.10 Other stimulant abuse, uncomplicated; F12.10 Cannabis abuse, uncomplicated; F41.9 Anxiety disorder, unspecified; I07.1 Rheumatic tricuspid insufficiency; Z87.891 Personal history of nicotine dependence
CPT/HCPCS: 36415; 80048; 80053; 80061; 83036; 83735; 84443; 85025; 87081; 93005; 93458